=== PATIENT | female | born 1935 | race Caucasian/White ===

== ENCOUNTER 2017-07-04 11:45 | Outpatient (CLI) | payer MEDICARE, OTHER, SELFPAY ==
[2017-07-04] VITALS (11 sets, daily range): BP systolic 100–137; BP diastolic 22–78; PULSE 71–86; RESP 16–18; TEMP 36.2; O2SAT 93–97
--- NOTE | 2017-07-04 | DI.RAD.S_ITS ---
PROCEDURE: PAIN L/SI FACET INJ/BLK 1STL INDICATIONS: LUMBAR PAIN FINDINGS: Fluoroscopic spot filming was performed to verify placement of spinal needles at the left-sided L3-4, L4-5, and L5-S1 level(s), as labeled on the films. Appropriate location(s) of the needle tip(s) was confirmed by injection of iodinated contrast. IMPRESSION: Successful needle localization on the left at the left L3-4, L4-5, and L5-S1 facet regions. Dictated by: Anderson Pimentel M.D. on 07/04/2017 at 15:01 Approved by: Anderson Pimentel M.D. on 07/04/2017 at 15:03
--- NOTE | 2017-07-04 13:19 | PM.PROC.1 ---
Procedures Date/Time Date of procedure: 07/04/17 Time of procedure: 14:32 General Procedure description: PREOP DIAGNOSIS 1. FACET ARTHROPATHY, POST OP DIAGNOSIS 1. FACET ARTHROPATHY, PROCEDURES 1. Left L4, L5 and S1 MB BLOCKS, SURGEON: DO KRUPA Miller Nathaly is referred by Dr. Perez for treatment of Bilateral Axial LBP. DESCRIPTION OF PROCEDURE Fluoroscopically guided, contrast-controlled left L4,L5 and S1 medial branch blocks w ith 0.5cc of 0.5% Marcaine. Following denial of allergy and review of potential side effects and complications, including, but not necessarily limited to, infection, allergic reaction, local tissue breakdown, nerve injury, paralysis, stroke and possible , the patient indicated that the patient understood and agreed to proceed. An informed consent document was signed by the patient, witnessed by a nurse, and placed in the patient's chart. Per the patient request, IV conscious sedation was administered via 3mg of Versed to patient comfort. The patient's vital signs were monitored throughout the procedure by both the nurse and the physician without significant fluctuation. The patient remained conversant throughout the procedure. In the prone position, following sterile prep and drape of the lumbar region, the left L4,L5 and S1 anatomical location of the medial branch of the dorsal ramus was identified fluoroscopically. Subsequently an anesthetic skin wheal using 1% lidocaine solution was initiated at each of the anatomical spots. Subsequently then a 22-gauge 3.5-inch spinal needle was atraumatically introduced and advanced under fluoroscopic guidance at each of the corresponding sites at the left L4,L5 and S1 MB. After negative aspiration, 0.2 cc of Isovue 200 was injected, confirming placement without vascular or intrathecal uptake. Subsequently then 0.5 cc of 0.5% Marcaine solution was injected at each of the corresponding sites at the left L4,L5 and S1 medial branch locations. The identical procedure was replicated on the left. The patient tolerated the procedure well without signs or symptoms of complications. Post-procedure, the patient was monitored initiating provocative activities to measure the amount of relief from block of the facetogenic pain. The patient reported a VAS of 7 prior to the procedure and a post-procedure VAS of 1. It has been a pleasure to assist in the diagnostic and therapeutic care of your patient. Total Fluoroscopy Time:24.8 seconds Total Conscious Sedation Time: 24min POST OP INSTRUCTIONS The patient was provided with a Pain Log to complete over the next several hours and subsequent days prior to the patient's follow up with the ordering physician. If the patient has wired sweatband cutter relief to the solution applied, then they may be a candidate for medial branch rhizotomy. The patient is aware, was provided, once again, with a Pain Log and will follow up with the referring physician for review and clinical correlation Trip Frederick DO
[2017-07-04] MEDS: MIDAZOLAM 2 MG/2 ML VIAL 3 MG IV (13:24)
[2017-07-04] MEDS: BUPIVACAINE 0.25% (PF) 30 ML VIAL 5 ML INJ (13:32)
[2017-07-04] MEDS: LIDOCAINE 1% 20 ML INJ 10 ML INJ (13:32)
[2017-07-04] MEDS: BETAMETHASONE 30 MG/5 ML MDV 18 MG INJ (13:32)
== END 2017-07-04 14:24 ==
PROVIDERS: Family Provider Physical Medicine & Rehabilitation Pain Medicine; PCP Internal Medicine; Visit Provider Physical Medicine & Rehabilitation
DX: M47.816 Spondylosis without myelopathy or radiculopathy, lumbar region (principal); M54.42 Lumbago with sciatica, left side; M54.41 Lumbago with sciatica, right side; G89.29 Other chronic pain
CPT/HCPCS: 64493; 99152; J0702; J2250

== ENCOUNTER 2017-08-22 07:59 | Outpatient (CLI) | payer MEDICARE, OTHER, SELFPAY ==
--- NOTE | 2017-08-21 11:24 | PM.PROC.1 ---
Procedures Date/Time Date of procedure: 08/21/17 Time of procedure: 11:25
[2017-08-21 12:06] VITALS: BP 110/61; PULSE 74; RESP 18; TEMP 36.4; O2SAT 96
--- NOTE | 2017-08-21 12:32 | PC.NURSE ---
Procedure has been canceled rt improper grounding pad being present for ablation machine. The facility currently does not have the correct grounding pad so Dr. Frederick is unable to safely conduct the procedure. Explanation given to pt and and both verbalized understanding of problem.
[2017-08-22] VITALS (21 sets, daily range): BP systolic 101–139; BP diastolic 49–85; PULSE 79–93; RESP 18; TEMP 36.3; O2SAT 93–100
--- NOTE | 2017-08-22 | DI.RAD.S_ITS ---
PROCEDURE: PAIN L/S MED/LAT N RFA INDICATIONS: BACK PAIN FINDINGS: Fluoroscopic spot filming was performed to verify placement of spinal needles at the L4, L5, S1 level(s), as labeled on the films. Appropriate location(s) of the needle tip(s) was confirmed by injection of iodinated contrast. IMPRESSION: Left-sided L4, L5, S1 successful needle tip localization for nerve root ablation. Dictated by: Anderson Pimentel M.D. on 08/22/2017 at 15:09 Approved by: Anderson Pimentel M.D. on 08/22/2017 at 15:09
[2017-08-22] MEDS: MIDAZOLAM 5 MG/5 ML VIAL IV (12:30)
[2017-08-22] MEDS: LIDOCAINE 1% 20 ML INJ 10 ML INJ (13:15)
[2017-08-22] MEDS: BUPIVACAINE 0.5% (PF) 30 ML VIAL 5 ML INJ (13:15)
--- NOTE | 2017-08-22 13:45 | P.PCN_ITS ---
Procedures Date/Time Date of procedure: 08/22/17 Time of procedure: 13:45 General Procedure description: PREOP DIAGNOSIS 1. RECALCITRANT FACET ARTHROPATHY, POST OP DIAGNOSIS 1. RECALCITRANT FACET ARTHROPATHY, PROCEDURES 1. LEFTT L4 AND L5 MEDIAL BRANCH RADIOFREQUENCY NEUROTOMY AND LEFT S1 DORSAL RAMUS RADIOFREQUENCY NEUROTOMY, PHYSICIAN: Trip Frederick DO INDICATIONS Nathaly is referred by Dr. Mcdonald for treatment of facet arthropathy. DESCRIPTION OF PROCEDURE Left L4 and L5 medial branch radiofrequency neurotomy and left S1 dorsal ramus branch radiofrequency neurotomy under fluoroscopy with conscious sedation. The patient is well known to this clinic having undergone previous facet injections with good but temporary relief. The patient has experienced appropriate, concordant relief with previous facet and median branch blocks but the patient's pain has been recalcitrant to further conservative measures. Therefore, based upon the patient's relief and persistent symptoms, the patient is considered an appropriate candidate for facet rhizotomy. All of the patient' s questions regarding the risks versus benefits of the procedure, including, but not limited to, bleeding, infection, temporary as well as lasting nerve injury, paralysis, stroke, and , as well treatment alternatives were answered to satisfaction. After obtaining informed consent, denial of pertinent drug allergies, as well as being made aware of the potential risks of bleeding, infection, spinal cord trauma, paralysis, temporary and permanent nerve damage, seizure, stroke, and possible , the patient was brought to the fluoroscopy suite and positioned prone on the fluoroscopy table. The lumbar region was prepped with Betadine and covered with a fenestrated drape in the usual sterile fashion. Appropriate monitors applied including pulse oximeter, pulse, and blood pressure for regular monitoring throughout the procedure. IV sedation was accomplished with a combination of 5mg of Versed titrated to patient comfort during the course of the procedure while the patient remained responsive to all verbal commands. After local infiltration using 1% lidocaine, under fluoroscopic guidance, a 10- cm RF insulated needle with a 10-mm active tip was positioned parallel to the junction of the left sacral ala and the superior articulating process where the S1 dorsal ramus resides. Needle placement was confirmed with sensory stimulation at 50 Hz, with motor stimulation of .5v on the left which produced local stimulation without radicular component. The stimulation was then increased to 1.5v with, once again, only local multifidus stimulation without radicular component. This was then followed by two discreet lesions performed at 80 degrees Celsius for 90 seconds each. The needle was then removed and the identical procedure was performed along the length of the left L5 medial branch with motor stimulation at .7v on the leftt. The identical procedure was once again performed along the length of the left L4 medial branch with motor stimulation of .5v on the left. The patient was then transferred to the recovery area where they were observed for an appropriate period of time after the injection. The patient reported a VAS score of 9 prior to the procedure and a post-procedure VAS of 0. Total Fluoroscopy Time: 22.7 seconds Total Conscious Sedation Time: 34min POST OP INSTRUCTIONS The patient was provided a Pain Log to continue to record the patient's response to the target-specific procedure prior to the patient's follow-up visit with the referring physician. Additionally, specific post-injection care instructions and a contact number to our office were provided if concerns arise regarding possible complications associated with the procedure are suspected. Trip Frederick DO Complications: none
--- NOTE | 2017-08-22 13:51 | PC.NURSE ---
pt desated to lows\es noted 84% on RA with good pleth upon arrival to post procedure room. O2 by NC started and came up to 94% on 5L. now at 100% on 3L
--- NOTE | 2017-08-22 14:47 | PC.NURSE ---
Ambulation trial failed, pt unable to stand at this time.
--- NOTE | 2017-08-22 15:15 | PC.NURSE ---
AMBULATION ATTEMPTED FOR 2ND TIME, PT ABLE TO STAND AT THIS TIME BUT UNABLE TO SHOW STEADY GAIT. PT SAT BACK DOWN SAFELY IN CHAIR.
--- NOTE | 2017-08-22 15:27 | PC.NURSE ---
PT ABLE TO AMBULATE SAFELY WITH WALKER, WHICH IS PT'S BASELINE.
== END 2017-08-22 15:45 | disposition home or self-care (01) ==
LOC: RAD 08:01
PROVIDERS: Family Provider Physical Medicine & Rehabilitation Pain Medicine; PCP Internal Medicine; Visit Provider Physical Medicine & Rehabilitation
DX: M47.816 Spondylosis without myelopathy or radiculopathy, lumbar region (principal); M46.96 Unspecified inflammatory spondylopathy, lumbar region
CPT/HCPCS: 64635; 64636; 99152; J2250

== ENCOUNTER → 2017-09-21 08:53 | Outpatient (CLI) | payer MEDICARE, OTHER, SELFPAY ==
--- NOTE | 2017-09-21 | DI.RAD.S_ITS ---
PROCEDURE: XR ACUTE ABDOMEN SERIES INDICATIONS: ABDOMINAL PAIN TECHNIQUE: One view chest and two views of the abdomen were acquired. COMPARISON: [facility], , CHEST 2 VIEW, 02/03/2017, 13:54. [facility], , ABDOMEN 2 VIEW, 03/15/2016, 18:54. FINDINGS: Surgical changes and devices: Surgical fusion lower cervical spine. Multilevel vertebral plasty and surgical fusion lumbar spine. Chest: Lungs show accentuated interstitial pattern with indistinct radiodensity in the right midlung field laterally and over the left heart border, indeterminate. Possible small right pleural effusion. Heart size is mildly enlarged. No pleural effusions. No pneumoperitoneum. Abdomen: Bowel gas pattern is unremarkable without evidence of obstruction. No suspicious calcifications. Visualized solid organ contours appear normal. Bones: Rounded sclerotic density in the right humeral head laterally.. IMPRESSION: 1. Pulmonary interstitial prominence which may represents chronic interstitial lung disease or chronic pulmonary edema with patchy densities bilaterally that could represent superimposed or underlying pneumonia. 2. Exam is negative for small bowel obstruction or pneumoperitoneum. 3. Postoperative changes cervical and lumbar spine per above. Dictated by: Vazquez Mascorro M.D. on 09/21/2017 at 9:42 Approved by: Vazquez Mascorro M.D. on 09/21/2017 at 9:48
--- NOTE | 2017-09-21 | DI.US.S_ITS ---
PROCEDURE: US ABDOMEN COMPLETE INDICATIONS: ABDOMINAL PAIN TECHNIQUE: Real-time scanning was performed of the abdominal and retroperitoneal organs, with image documentation. COMPARISON: [facility], CT, ABDOMEN/PELVIS WITH CONTRAST, 12/27/2015, 3:19. [facility], CR, XR ACUTE ABDOMEN SERIES, 09/21/2017, 9:00. FINDINGS: Liver: Liver is normal in size and homogeneous in echotexture. Gallbladder: No findings of gallstones or sludge are seen. The gallbladder wall is not thickened, measuring 3 mm or less. No specific pericholecystic fluid is seen. The sonographic Saeed sign is negative. Biliary ducts: Intrahepatic bile ducts are non-dilated. Extrahepatic bile duct caliber measures 5-6 mm. Normal is 6-7 mm or less in diameter, or 10 mm or less post-cholecystectomy. Pancreas: Visualized portions of the pancreas are sonographically normal. Spleen: Spleen is normal in size and homogeneous in echotexture. Kidneys: Kidneys are normal in size and echotexture. Right kidney measures 10 cm long; left kidney measures 11 cm long. No hydronephrosis or nephrolithiasis. No solid masses. The renal cortex measures within normal limits for thickness. Aorta: Visualized aorta is normal in caliber at less than 3 cm. Iliacs: Proximal common iliac arteries are normal in caliber at less than 2.5 cm. IVC: Intrahepatic inferior vena cava is patent. Miscellaneous: No free abdominal fluid. IMPRESSION: No imaging explanation is found for this patient's presenting history of pain. The gallbladder demonstrates a normal sonographic appearance. No biliary dilatation is seen. Dictated by: Roman Salinas M.D. on 09/21/2017 at 10:00 Approved by: Roman Salinas M.D. on 09/21/2017 at 10:01
== END ==
PROVIDERS: Family Provider Physical Medicine & Rehabilitation Pain Medicine; PCP Internal Medicine; Visit Provider Internal Medicine
DX: R10.84 Generalized abdominal pain (principal)
CPT/HCPCS: 74022; 76700

== ENCOUNTER → 2017-10-05 09:45 | Outpatient (CLI) | payer MEDICARE, OTHER, SELFPAY | PROVIDERS: Family Provider Physical Medicine & Rehabilitation Pain Medicine; PCP Internal Medicine; Visit Provider Internal Medicine | DX: M85.852 Other specified disorders of bone density and structure, left thigh (principal); E06.3 Autoimmune thyroiditis; Z78.0 Asymptomatic menopausal state; Z90.722 Acquired absence of ovaries, bilateral; Z82.62 Family history of osteoporosis | CPT/HCPCS: 77080 ==

== ENCOUNTER → 2017-10-17 10:59 | Outpatient (CLI) | payer MEDICARE, OTHER, SELFPAY ==
--- NOTE | 2017-10-17 | DI.RAD.S_ITS ---
PROCEDURE: FL BARIUM SWALLOW W SPEECH INDICATIONS: DYSPHAGIA TECHNIQUE: Examination was conducted in conjunction with speech pathology per standard protocol. In the lateral projection, filming was performed of the patient swallowing. AP projection filming may also be performed with patient swallowing. COMPARISON: None. FINDINGS: Function: The oral preparatory phase appears normal, with proper containment. The subsequent oral propulsive phase, pharyngeal phase, and esophageal phase of swallowing also appear generally normal with proffered substances however there was identified mild laryngotracheal penetration and upper tracheal airway aspiration episodically with thin liquids. No pathologic vallecular pooling. Morphology: No cricopharyngeal bar is identified. No cervical esophageal webs. No Zenker's diverticulum. No strictures. IMPRESSION: Thin liquids didn't result in anterior penetration and a mild degree of upper tracheal airway aspiration during neutral position following. Flexed position swallowing with thin liquids did not result in this finding. Please also refer to the dedicated speech therapy swallowing evaluation report that will be independently generated. Dictated by: Anderson Pimentel M.D. on 10/17/2017 at 14:14 Approved by: Anderson Pimentel M.D. on 10/17/2017 at 14:17
--- NOTE | 2017-10-29 09:15 | ST.SWALLOW ---
Care Team Visit Care Team Role Provider Type Arturo Mcdonald MD Attending Provider Physician Primary Care Provider Specialty: Internal Medicine Address: [address] [place] [address], [id number] Email: Modified Barium Swallow Study DIRECTOR OF RECRUITMENT AND ADMISSIONS Modified Barium Swallow Study Start: 10/17/17 13:22 Freq: Status: Active Protocol: Document 10/17/17 13:22 LNK (Rec: 10/17/17 13:43 LNK [id number]) Modified Barium Swallow Study Total Time Visit Start Time 01:30 Visit Stop Time 12:15 Total Visit Minutes 45 Visit Information Insurance Information Medicare Setting Setting Outpatient Care Patient Information Identification Type Name Other Patient History Nathaly Dee was seen for a Modified Barium Swallow Study (MBSS) at the referral of her physician, Dr. Mcdonald. Nathaly had attended a dysphagia screening assessment at [facility] in September,. She indicated that she often has difficulty with her swallowing, frequently feeling like foods and liquids go down the wrong way. The DIRECTOR OF RECRUITMENT AND ADMISSIONS at that screening recommended that Nathaly be referred for the MBSS. When Nathaly was seen for the MBSS she further described that often she will have foods and liquids back up and go into her mouth after she has swallowed. She chokes frequently and has difficulty with chewing. She has a hx of hiatal hernia (~15 years ago) without therapy or treatment that she could remember. Subjective Observations Pleasant lady, seemed a little anxious. Patient Positioning Position View Lateral Imaging Lateral View Textures Administered Trials Presented Thin Liquid via Spoon Thin Liquid via Cup [place] Liquid via Spoon [place] Liquid via Cup Regular Textures Oral Phase Source: MBSIMP (TM) (C) Bolus Specific Scoring Grid Lip Closure WFL Tongue Control During Bolus Hold WFL Bolus Prep/Mastication Moderate Impairment Bolus Transport/Lingual Motion Moderate Impairment A/P Lingual Propulsion Delay No Oral Residue Moderate Impairment Residue Clearing Mild Impairment Nasal Regurgitation No Additional Oral Phase Observations for all liquid trials, the pt presented with oral motor skills WFL. However with the solid trial, she demonstrated moderate difficulty with tongue control for formation and control of the bolus. (1/ 2 [place] cookie). The pt required 3 attempts to swallow the cookie before it was cleared from her oral cavity. The cookie was not chewed adequately with large pieces of the cookie observed in subsequent swallows. Premature spillage was also observed prior to the initiation of the pharyngeal phase of the swallow. Pharyngeal Phase Source: MBSIMP (TM) (C) Bolus Specific Scoring Grid Delayed Initiation of Pharyngeal Swallow Yes Soft Palate Elevation WFL Tongue Base Strength/Range of Motion Moderate Impairment Residue Along the Tongue Base Yes Clearance of Residue Along Tongue Base Mild Impairment Laryngeal Elevation Moderate Impairment Anterior Hyoid Movement Moderate Impairment Epiglottic Range of Motion Moderate Impairment Vallecular Residue Yes Clearance of Vallecular Residue Moderate Impairment Laryngeal Vestibular Closure Moderate Impairment Pharyngeal Stripping Wave Mild Impairment Pharyngeal Contraction Mild Impairment Posterior Pharyngeal Wall Residue Yes Clearance of Posterior Pharyngeal Wall Moderate Impairment Residue Upper Esophageal Sphincter Opening Mild Impairment Residue in the Pyriform Sinuses Yes Clearance of Residue in the Pyriform Mild Impairment Sinuses Esophageal Clearance Upright Position Mild Impairment Pharyngoesophageal Backflow Observed No: pt reports backflow occurs often Additional Pharyngeal Phase Observations The swallowing response appeared to be delayed with partial hyolaryngeal elevation as well as partial excursion of the hyoid bone. The epiglottis did not invert completely and therefore resulted in incomplete closure of the laryngeal vestibule. The posterior pharyngeal wall near the epiglottis appeared to restrict the full inversion of the epiglottis. For all thin liquid trials, there was laryngotracheal penetration as well as aspiration with increased volume (as in a cup sip compared to a teaspoonful) . Chin tuck was effective with airway protection for liquids. Supraglottic swallowing was not effective for the pt with penetration observed. Following the aspiration event , the pt responded with a cough and was able to clear pharyngeal pooling; however there remained a trace residue within the upper trachea. Within the pharynx pooling was observed in the vallecula ( cookie as well as liquids), the pyriform sinuses, along the tongue base, as well as the pharyngeal wall. Pharyngeal stripping was evident, but inconsistent across trials. A/P View Clinical Impressions Dysphagia Type oropharyngeal dysphagia Rehabilitation Potential Excellent Patient Appropriate for Therapy Yes Recommendations Diet Liquids Order Thin Diet Order Mechanical Soft Medication Recommendation As Tolerated Additional Dietary Needs Single Sips Aspiration Precautions Recommended Precautions Upright at 90 Degrees Alternate Liquids/Solids Small Bites/Sips Chin Tuck Additional Precautions one sip at a time with liquids and tuck chin for all swallows Treatment Plan Therapy Recommendations Outpatient Speech Therapy Oral Motor Exercises Lingual Exercises Base of Tongue Exercises Compensatory Strategy Education Additional Therapy Recommendations Out patient dysphagia therapy Recommended Referrals Primary Care Physician GI Consult ENT Consult Additional Recommended Referrals GI consult re: hx of hiatal hernia and regurgitation of solids/liquids Compensatory Strategies Recommendations Sitting Upright (90 deg) No Straw Small Bites and Sips Alternate Liquids/Solids Short Term Goals The pt will learn and utilize linguapharyngeal exercises to reduce risk of aspiration. The pt will implement safe swallowing strategies to reduce the risk of aspiration Mcfp Goals The pt will safely tolerate the least restrictive diet without s/sx aspiration to meet nutritional and hydration needs.
== END ==
PROVIDERS: PCP Internal Medicine; Visit Provider Internal Medicine
DX: R13.10 Dysphagia, unspecified (principal)
CPT/HCPCS: 74220; 74230; 92611

== ENCOUNTER 2017-10-29 14:09 | Outpatient (RCR) | payer MEDICARE, OTHER, SELFPAY ==
--- NOTE | 2017-10-30 12:18 | ST.OPIE ---
Provider Information Visit Care Team Role Provider Type Arturo Mcdonald MD Attending Provider Physician Primary Care Provider Specialty: Internal Medicine Address: [address] [place] [address], [id number] Email: Speech-Language Pathology Initial Evaluation COUNTER SERVER Clinical Swallow Evaluation Start: 10/30/17 11:07 Freq: Status: Active Protocol: Document 10/29/17 11:07 KANA (Rec: 10/30/17 11:32 KANA [email or web address]) Clinical Swallow Evaluation Session Time Visit Start Time 14:30 Visit Stop Time 15:30 Total Visit Minutes 60 Visit Information Visit Number Initial Evaluation Plan of Care Dates 10/29/17 - 01/21/18 Insurance Information Medicare Referral Referring Physician Dr. Mcdonald Reason for Referral Dysphagia Setting Assessment Location Outpatient Care Visit Type Note Type Initial Evaluation Next Note Type Next Note Type Treatment Note Patient Information Identification Type Name History This 81-yr-old female attended swallow screening provided by [facility] last month with c/o difficulty with oral bolus control, coughing with oral intake, and sticking sensation in throat. At that time a Modified Barium Swallow Study (MBSS) was recommended, which did occur 10/17/17. At that time, the pt further reported that foods and liquids often 'back up and go into her mouth' after she has swallowed. She chokes frequently and has difficulty chewing. MBSS confirmed moderate oropharyngeal dysphagia characterized by reduced mastication and bolus formation and control; delayed swallow trigger; penetration and aspiration of thin liquid secondary to partial hyolaryngeal elevation and excursion, incomplete epiglottic inversion ( restricted by contact with pharyngeal wall) resulting in incomplete closure of the laryngeal vestibule. Chin tuck was beneficial to protect airway; supraglottic swallow was not. Recommendations included thin liquid in tsp amounts only taken in single sips, mechanical soft texture chewed well, chin tuck with swallows. Per pt, thin liquids and soft foods are her baseline diet. Subjective Observations The pt arrived on time with her , who was present throughout the evaluation and contributed to case hx. The pt reported following recommendations made by the COUNTER SERVER who performed the MBSS. The pt also reported familiarity with thickened liquids from caring for her parents who required them. Evaluation Liquids Trialed Thin Greenleaf Solids Trialed Puree Dysphagia Mechanical Dysphagia Advanced Administration Type Cup Single Sip Self-Feeding Oral Impairment Moderately Impaired Oral Strategies Upright at 90 degrees Oral Phase Comments No anterior spillage or abnormal oral residue observed . Moderately extended mastication was observed and deemed appropriate for adequate bolus breakdown. The pt noted diced peaches feeling stuck in her throat and remarked that she had not chewed well enough. She also reported some difficulty moving solids around her mouth in order to swallow well. Pharyngeal Strategies Sitting Upright (90 deg) Chin Tuck Small Bites and Sips Pharyngeal Phase Comments Mild throat clearing following swallows was observed with most trials, improved with chin tuck with exception of 1 trial . Reduced throat clearing observed with NTLs. Pt reported sticking sensation x3 and stated she felt close to coughing x1 but was able to avoid by taking a sip of liquid. No changes in vocal quality observed or other overt s/sx of aspiration. Pt demonstrated good use of swallow strategies with minimal cues. Findings Dysphagia Type Moderate oropharyngeal. Rehabilitation Potential Good Impressions Findings are consistent with MBSS results. Diet Recommendations Liquids Order Greenleaf Diet Order Dysphagia Mechanical Medication Recommendations Whole in Carrier Additional Dietary Needs Single Sips Aspiration Precautions Recommended Precautions Upright at 90 Degrees Small Bites/Sips Chin Tuck Liquids from Cup Additional Precautions Chew all solids well Treatment Plan Appropriate for Therapy Yes Therapy Recommendations Ongoing education and assessment of swallow function /safety. Training of swallow exercises to increase hyolaryngeal elevation and excursion in order to increase closure of laryngeal vestibule and promote epiglottic inversion; improve lingual control of bolus in oral cavity; and increase overall strength, coordination , and ROM of swallow musculature. Dysphagia Goals 1. Pt will complete exercises to improve swallow function and reduce risk of aspiration. 2. Pt will use safe swallow strategies independently to reduce risk of aspiration. 3. Pt will tolerate least restrictive diet to meet nutrition and hydration needs.
== END 2018-06-20 18:08 ==
LOC: SP 14:09
PROVIDERS: PCP Internal Medicine; Visit Provider Internal Medicine
DX: R13.10 Dysphagia, unspecified (principal)
CPT/HCPCS: 92526; 92610

== ENCOUNTER → 2017-11-02 12:24 | Outpatient (CLI) | payer MEDICARE, OTHER, SELFPAY ==
--- NOTE | 2017-11-02 | DI.MG.S_ITS ---
BILATERAL DIGITAL SCREENING MAMMOGRAM 3D/2D WITH CAD: 11/02/2017 CLINICAL: Routine screening. Comparison is made to exams dated: 09/25/2012 mammogram, 09/13/2011 mammogram, and 09/06/2010 mammogram - [facility]. The tissue of both breasts is predominantly fatty. Current study was also evaluated with a Computer Aided Detection (CAD) system. There are benign calcifications in both breasts. No significant masses, calcifications, or other findings are seen in either breast. There has been no significant interval change. IMPRESSION: BENIGN There is no mammographic evidence of malignancy. A 1 year screening mammogram is recommended. This exam was interpreted at Station ID: [id number]. NOTE: For mammograms, a report in lay terms will be sent to the patient. Approximately 15% of breast malignancies will not be visualized mammographically. In the management of a palpable breast mass, a negative mammogram must not discourage biopsy of a clinically suspicious lesion. Electronically Signed By: Maria G houser/eileen:11/02/2017 14:00:01 letter sent: Normal Exam ACR BI-RADS Category 2: Benign Finding(s) 3342F
== END ==
PROVIDERS: PCP Internal Medicine; Visit Provider Internal Medicine
DX: Z12.31 Encounter for screening mammogram for malignant neoplasm of breast (principal)
CPT/HCPCS: 77063; 77067

== ENCOUNTER 2017-12-02 05:14 | Emergency (ER) | payer MEDICARE, OTHER, SELFPAY ==
[2017-12-02 05:22] VITALS: BP 130/74; PULSE 94; RESP 21; TEMP 36.9; O2SAT 92; BMI 29.5
--- NOTE | 2017-12-02 05:25 | DI.RAD.S_ITS ---
PROCEDURE: XR CHEST 1V INDICATIONS: leg pain, chest pain TECHNIQUE: One view of the chest was acquired. COMPARISON: [facility], , CHEST 2 VIEW, 02/03/2017, 13:54. FINDINGS: Surgical changes and devices: Fixation hardware is partially visualized and is grossly intact. Lungs and pleura: There is mild elevation of the right hemidiaphragm, as before. Diffuse reticular opacities throughout both lungs are unchanged from prior study suggesting fibrotic changes. Trace pulmonary opacities or atelectasis are present in the right midlung. Mediastinum: Mediastinal contours appear normal. Heart size is normal. Bones and chest wall: No suspicious bony lesions. Overlying soft tissues appear unremarkable. IMPRESSION: Findings suspicious for right midlung atelectasis although trace pulmonary infiltrate cannot be excluded. Short interval followup is recommended to ensure resolution of this finding and exclude underlying pulmonary pathology. Dictated by: Maria G Downey M.D. on 12/02/2017 at 8:37 Approved by: Maria G Downey M.D. on 12/02/2017 at 8:38
--- NOTE | 2017-12-02 05:42 | DI.US.S_ITS ---
PROCEDURE: US PERIPH VENOUS LOW EXTREM LT INDICATIONS: pain behind knee, low oxygen TECHNIQUE: Real-time imaging, as well as color and pulse Doppler interrogation, were performed of the lower extremity deep veins from the inguinal ligament to the popliteal fossa. COMPARISON: None. FINDINGS: The deep veins are normally compressible, and free of intraluminal thrombus. Color and pulse Doppler demonstrate normal phasic intraluminal flow. There is normal augmentation response to distal compression maneuver. IMPRESSION: No deep vein thrombosis of the left lower extremity. Dictated by: Maria G Downey M.D. on 12/02/2017 at 8:45 Approved by: Maria G Downey M.D. on 12/02/2017 at 8:45
[2017-12-02 05:46] LABS: Add Manual Diff / Slide Review NO; Basophils Percent Auto 0.9 % (0-2); Eosinophils Percent Auto 1.2 % (2-4); Hematocrit 39.8 % (36-46); Hemoglobin 13.1 g/dL (12.0-16.0); Lymphocytes Percent Auto 10.4 % (25-40); Mean Corpuscular Hemoglobin 28.2 PG (26-34); Mean Corpuscular Volume 85.4 fL (80-100); Monocytes Percent Auto 7.3 % (3-14); Neutrophils Absolute Auto 13500 /uL (3000-5900); Neutrophils Percent Auto 80.2 % (50-75); Platelet Count 127 X10^3/uL (150-400); Red Blood Cell Count 4.66 X10^6/uL (4.0-5.2); Red Cell Distribution Width 17.1 % (11.6-14.8); White Blood Cell Count 16.8 X10^3/uL (4.5-11.0)
[2017-12-02 05:51] LABS: INR 3.6 (0.9-1.3)
--- NOTE | 2017-12-02 05:51 | ED.GENADULT ---
HPI - General Adult <Kathy Blanco, - Last Filed: 12/02/17 19:12> General Chief complaint: Chest Pain Stated complaint: Posterior Left Knee pain Time Seen by Provider: 12/02/17 05:36 Source: patient and family Mode of arrival: EMS Limitations: no limitations History of Present Illness HPI narrative: This is an 82-year-old female comes to the emergency department with complaint of left knee pain. Patient states that it started hurting this evening. She states she has not had any trauma, he shows any twisting or other injuries that she remembers. She states it hurts behind the knee. She denies any swelling, no weakness or numbness or tingling. Patient does feel little bit short of breath this evening. Her oxygen was low initially with EMS and here in the ED. She denies any chest pain to me but states to patient's nurse that she had chest pain at some point. Patient denies any nausea or vomiting, no GI or urinary symptoms. No new neck pain or radiating pain to the arm or elsewhere. Patient has a history of atrial fibrillation and she is on Coumadin. She has not had any prior DVTs or blood clots. She is in chronic atrial fibrillation. Related Data Home Medications Medication Instructions Recorded Confirmed cholecalciferol (vitamin D3) 2,000 unit PO QDAY #0 07/11/11 11/15/17 [Vitamin D3] duloxetine 60 mg PO QDAY #0 03/13/16 11/15/17 ondansetron HCl 4 mg PO TIDP PRN #0 03/13/16 11/15/17 oxycodone 1 - 2 tab PO Q4HP PRN #0 03/13/16 11/15/17 sennosides [senna] 1 tab PO QDAYP PRN #0 03/13/16 11/15/17 acetaminophen 650 mg PO PRN PRN #0 11/02/16 11/15/17 cetirizine 10 mg PO QDAY #0 11/02/16 09/07/17 cyanocobalamin (vitamin B-12) 1,000 mcg PO QPM #0 11/02/16 11/15/17 magnesium oxide 250 mg PO QPM #0 11/02/16 09/07/17 pseudoephedrine-guaifenesin 1 tab PO QDAY #0 11/02/16 09/07/17 [Mucinex D] fentanyl 1 patch TOPICAL Q72H #0 12/26/16 11/15/17 latanoprost 1 drp OPHTH HS #0 02/03/17 09/07/17 warfarin 5 mg tablet 5 mg PO QMWF 11/15/17 11/15/17 Previous Rx's Medication Instructions Recorded Diltiazem Hydrochloride 360 mg PO Q DAY #90 01/29/12 (#DILTIAZEM) polyethylene glycol 3350 [Miralax] 17 gm PO QDAYP PRN #1 box 12/23/15 metoprolol succinate 100 mg PO QDAY #30 tab 12/01/16 furosemide 40 mg PO QDAY #30 tab 01/05/17 pantoprazole 40 mg PO 0600 #30 tab 01/05/17 clobetasol 0.05 % topical ointment 1 applictn TOPICAL SEE 09/24/17 INSTRUCTIONS #60 gram Allergies Allergy/AdvReac Type Severity Reaction Status Date / Time Penicillins [PENICILLINS] Allergy Severe RASH/SWELLI Verified 09/07/17 10:08 NG sulfite [SULFITE] Allergy Severe GI UPSET Verified 09/07/17 10:08 gabapentin [GABAPENTIN] AdvReac Unknown LOW BP, Verified 09/07/17 10:08 CONFUSION pregabalin [From LYRICA] AdvReac Unknown LOW BP, Verified 09/07/17 10:08 CONFUSION Review of Systems <Kathy Blanco, DO - Last Filed: 12/02/17 19:12> Review of Systems All systems reviewed & are unremarkable except as noted in HPI and below Constitutional Denies chills, Denies fever(s), Denies lethargy and Denies weakness ENT Ears, Nose, Mouth, and Throat: Denies nasal congestion Cardiovascular Denies chest pain, Denies diaphoresis, Denies syncope, Denies rapid heart rate, Denies edema, Denies lightheadedness, Denies dyspnea and Denies dyspnea on exertion Respiratory Denies chest congestion, Denies cough, Denies excessive phlegm production, Denies dyspnea, Denies dyspnea on exertion and Denies wheezing Gastrointestinal Gastrointestinal: Denies abdominal pain, Denies change in bowel habits, Denies diarrhea, Denies nausea and Denies vomiting Genitourinary Denies urinary incontinence and Denies urinary urgency Musculoskeletal Reports as per HPI (left knee pain behind knee), Denies joint swelling, Reports limited range of motion, Denies muscle weakness and Denies tingling Integumentary/Breasts Denies erythema and Denies rash Neurologic Denies syncope, Denies sensory deficit, Denies tingling and Denies weakness Allergic/Immunologic Denies wheezing Exam <Kathy Blanco DO - Last Filed: 12/02/17 19:12> Narrative Exam Narrative: GENERAL: Alert and oriented x three, obese, well-appearing female in no acute distress but HEENT: Head normocephalic, atraumatic, EOMI, pupils reactive, face symmetric, moist mucous membranes NECK: Supple, full range of motion CARDIOVASCULAR: Regular rate and rhythm without murmurs, rubs or gallops. RESPIRATORY: Breath sounds equal bilaterally, no wheezes rales or rhonchi. ABDOMEN: Soft, nontender. Normoactive bowel sounds all 4 quadrants. No guarding or rebound, rigidity, no mass : No CVA tenderness EXTREMITIES: Decreased range of motion of left knee patient refuses to flex extend secondary to pain, patient has tenderness behind the knee but no bony tenderness. No appreciable swelling in left compared to right knee or lower extremity. Patient has no warmth or erythema to the knee. No ballotable effusion. 2+ pulses bilateral lower extremities. No cyanosis or pallor., no clubbing or edema. Neurovascularly intact NEUROLOGICAL: Cranial nerves II through XII grossly intact. Moving all extremities SKIN: Warm, dry, no petechiae, no rashes or lesions. Initial Vital Signs Initial Vital Signs: Vital Signs Temperature 98.4 F 12/02/17 05:22 Pulse Rate 94 H 12/02/17 05:22 Respiratory Rate 21 12/02/17 05:22 Blood Pressure 130/74 12/02/17 05:22 Pulse Oximetry 92 12/02/17 05:22 <Adryan Howell DO - Last Filed: 12/02/17 09:26> Initial Vital Signs Initial Vital Signs: Vital Signs Temperature 98.4 F 12/02/17 05:22 Pulse Rate 94 H 12/02/17 05:22 Respiratory Rate 21 12/02/17 05:22 Blood Pressure 130/74 12/02/17 05:22 Pulse Oximetry 92 12/02/17 05:22 Course <Kathy Blanco DO - Last Filed: 12/02/17 19:12> Orders Ordered: Discontinued Medications Aspirin (Aspirin Chew) 324 mg PO NOW ONE Stop: 12/02/17 05:26 Last Admin: 12/02/17 05:59 Dose: 324 mg Hydromorphone HCl (Dilaudid) 1 mg IV NOW ONE Stop: 12/02/17 07:25 Last Admin: 12/02/17 08:45 Dose: 1 mg Sodium Chloride (Normal Saline 0.9%) 1,000 mls @ 150 mls/hr IV CONT [facility] Last Infusion: 12/02/17 09:30 Dose: 0 mls/hr Admin: 12/02/17 05:59 Dose: 150 mls/hr Vital Signs - 8 hr 12/02/17 05:22 12/02/17 06:00 12/02/17 08:44 Temperature 98.4 F Pulse Rate 94 H 90 79 Respiratory Rate 21 28 H 19 Blood Pressure 130/74 Blood Pressure [Right Arm] 109/58 L 105/55 L Pulse Oximetry 92 96 92 <Adryan Howell DO - Last Filed: 12/02/17 09:26> Orders Ordered: Discontinued Medications Aspirin (Aspirin Chew) 324 mg PO NOW ONE Stop: 12/02/17 05:26 Last Admin: 12/02/17 05:59 Dose: 324 mg Hydromorphone HCl (Dilaudid) 1 mg IV NOW ONE Stop: 12/02/17 07:25 Last Admin: 12/02/17 08:45 Dose: 1 mg Sodium Chloride (Normal Saline 0.9%) 1,000 mls @ 150 mls/hr IV CONT [facility] Last Infusion: 12/02/17 09:30 Dose: 0 mls/hr Admin: 12/02/17 05:59 Dose: 150 mls/hr Vital Signs - 8 hr 12/02/17 05:22 12/02/17 06:00 12/02/17 08:44 Temperature 98.4 F Pulse Rate 94 H 90 79 Respiratory Rate 21 28 H 19 Blood Pressure 130/74 Blood Pressure [Right Arm] 109/58 L 105/55 L Pulse Oximetry 92 96 92 Medical Decision Making <Kathy Blanco DO Romulo Last Filed: 12/02/17 19:12> Lab Data Lab results reviewed: Yes I reviewed the patient's lab results. Result diagrams: 12/02/17 05:37 12/02/17 05:37 Lab Results 12/02/17 12/02/17 12/02/17 Range/Units 05:37 05:37 05:37 WBC 16.8 H (4.5-11.0) X10^3/uL RBC 4.66 (4.0-5.2) X10^6/uL Hgb 13.1 (12.0-16.0) g/dL Hct 39.8 (36-46) % MCV 85.4 (80-100) fL MCH 28.2 (26-34) PG MCHC 33.0 (30-36) % RDW 17.1 H (11.6-14.8) % Plt Count 127 L (150-400) X10^3/uL Neut % (Auto) 80.2 H (50-75) % Lymph % (Auto) 10.4 L (25-40) % Lagrange % (Auto) 7.3 (3-14) % Eos % (Auto) 1.2 L (2-4) % Baso % (Auto) 0.9 (0-2) % Neut # (Auto) 05015 H (8154-2910) /uL PT 40.0 H (10.1-12.7) SECONDS INR 3.6 H (0.9-1.3) APTT 53 H (26.4-36.2) SECONDS Sodium 139 (137-145) mmol/L Potassium 4.2 (3.4-5.1) mmol/L Chloride 101 (98-107) mmol/L Carbon Dioxide 29 (22-32) mmol/L BUN 15 (7-17) mg/dL Creatinine 0.70 (0.52-1.04) mg/dL Estimated GFR > 60.0 (>60) mL/min BUN/Creatinine Ratio 21.4 (6-22) Glucose 143 H (80-110) mg/dL Calcium 8.7 (8.4-10.2) mg/dL Total Bilirubin 1.1 (0.2-1.3) mg/dL AST 23 (14-36) IU/L ALT 19 (9-52) IU/L Alkaline Phosphatase 114 (38-126) U/L Total Creatine Kinase 22 L (30-135) U/L CK-MB (CK-2) TNP CK-MB (CK-2) Rel Index TNP Troponin I < 0.012 (0.01-0.034) ng/mL B-Natriuretic Peptide 586.0 H (<100) Total Protein 7.7 (6.3-8.2) g/dL Albumin 4.0 (3.5-5.0) g/dL Globulin 3.7 (1.7-4.1) g/dL Albumin/Globulin Ratio 1.1 (1.0-2.8) Lipase 17 L (23-300) U/L Imaging Data DVT US LLE: Radiologist's impression: No evidence of left lower extremity DVT. No popliteal cyst is demonstrated. Chest x-ray: Attestation: I personally reviewed and interpreted this imaging study as follows: My impression: Cardiomegaly. 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 No pneumothorax. ECG Data Attestation: I personally reviewed and interpreted this ECG as follows: Interpretation: AFib with a rate of 95 QRS of 102 QTC of 419. Patient has T-wave changes to 3 AVF and V1 through V3. Patient's prior EKG from 01/18/2017 appears to have similar T-wave changes. MDM Narrative Medical decision making narrative: Patient's oxygen does drop but according to her this is a known issue. She was given oxygen and had at home but does not normally use it. She is asymptomatic denying any shortness of breath currently. She does not have any wheeze currently. Her other clear pulmonary issues. She is therapeutic on Coumadin with no tachycardia or chest pain. Her lower extremity does not show any signs of DVT although this would be unlikely on Coumadin. X-ray was ordered pain medication. Patient does have a little bit of white count is 16. There is no signs of septic joint clinically. Patient has not had any trauma or recent injuries. Patient is signed out to Dr. Howell pending knee x-ray and while waiting to see if her pain is controlled with medication and for final disposition. <Adryan Howell, - Last Filed: 12/02/17 09:26> Lab Data Lab Results 12/02/17 12/02/17 12/02/17 Range/Units 05:37 05:37 05:37 WBC 16.8 H (4.5-11.0) X10^3/uL RBC 4.66 (4.0-5.2) X10^6/uL Hgb 13.1 (12.0-16.0) g/dL Hct 39.8 (36-46) % MCV 85.4 (80-100) fL MCH 28.2 (26-34) PG MCHC 33.0 (30-36) % RDW 17.1 H (11.6-14.8) % Plt Count 127 L (150-400) X10^3/uL Neut % (Auto) 80.2 H (50-75) % Lymph % (Auto) 10.4 L (25-40) % Lagrange % (Auto) 7.3 (3-14) % Eos % (Auto) 1.2 L (2-4) % Baso % (Auto) 0.9 (0-2) % Neut # (Auto) 39839 H (0889-9533) /uL PT 40.0 H (10.1-12.7) SECONDS INR 3.6 H (0.9-1.3) APTT 53 H (26.4-36.2) SECONDS Sodium 139 (137-145) mmol/L Potassium 4.2 (3.4-5.1) mmol/L Chloride 101 (98-107) mmol/L Carbon Dioxide 29 (22-32) mmol/L BUN 15 (7-17) mg/dL Creatinine 0.70 (0.52-1.04) mg/dL Estimated GFR > 60.0 (>60) mL/min BUN/Creatinine Ratio 21.4 (6-22) Glucose 143 H (80-110) mg/dL Calcium 8.7 (8.4-10.2) mg/dL Total Bilirubin 1.1 (0.2-1.3) mg/dL AST 23 (14-36) IU/L ALT 19 (9-52) IU/L Alkaline Phosphatase 114 (38-126) U/L Total Creatine Kinase 22 L (30-135) U/L CK-MB (CK-2) TNP CK-MB (CK-2) Rel Index TNP Troponin I < 0.012 (0.01-0.034) ng/mL B-Natriuretic Peptide 586.0 H (<100) Total Protein 7.7 (6.3-8.2) g/dL Albumin 4.0 (3.5-5.0) g/dL Globulin 3.7 (1.7-4.1) g/dL Albumin/Globulin Ratio 1.1 (1.0-2.8) Lipase 17 L (23-300) U/L MDM Narrative Medical decision making narrative: 0900: Received turned over from night provider. Perform my own history and review the patient's labs and x-rays. Patient is here today for her right knee pain there is no trauma. The x-ray today shows arthritis but no fractures. I suspect that is the arthritis that is causing her symptoms. I have low suspicion for septic joint. Patient does have a history of congestive heart failure. She is on diuretics. She has been taking her diuretics. At times here in the emergency department her oxygen saturations have been in the low 90s and dropped into the 80s especially with movement. Patient reports no symptoms when this happens however she does state that at home she gets short of breath when she walks. She states she does not walk very far because the pain that she has in her back and also because of the shortness of breath. She states she has been on oxygen in the past but that has been several months ago and she states she was ?improving ?so she no longer uses the oxygen. Her chest x-ray today shows atelectasis and potentially trace pulmonary infiltrate. There is no definitive pneumonia. She does have an elevated white blood cell count however no fevers and no productive cough. Unsure as the exact etiology of the leukocytosis however no infection was found today. She is nontoxic appearing. Will hold on any antibiotics for now. We did discuss her knee pain. Informed her that she needs to talk with her primary care doctor about potentially seen an orthopedic surgeon to discuss injections versus knee replacement. She has had a knee replacement and her other knee in the past. She has no chest pain. Patient does have a follow up with her primary care doctor on Sunday. She was encouraged to keep this appointment. She was encouraged to talk with her primary doctor about the chest x-ray findings today, the potential for needing oxygen again at home and also the orthopedic follow-up. She was given return precautions. I did inform her that arthritis is a non reversible process and that she is going to have pain in her knee despite any medications that she is taking. She is on a stool softener. Will hold on further workup for now. Low suspicion for serious bacterial infection low suspicion for sepsis. I feel that clinically she does not have pneumonia and given the fact that there is no definitive infiltrate on the chest x-ray will hold on antibiotics. Patient and her expressed understanding and agreement. Discharge Plan Departure Patient Disposition: Home Clinical Impression: Arthritis, LYNCH (dyspnea on exertion) Discharge Date/Time: 12/02/17 09:54 Interventions: ED Discharge Assessment Last Done: 12/02/17 09:52 Instructions: Arthritis (Alternative Therapy), DI for Shortness of Breath, DI for Arthritis, How to Manage Shortness of Breath Activity Restrictions/Additional Instructions: No emergent conditions were found on your workup here today in the emergency department. Your oxygen saturations were dropping especially with any activity. You do need to talk with your primary care doctor at her appointment on Sunday about this and to discuss the indications for oxygen at home. You do have arthritis in her knee which I suspect is the cause of the pain. Continue with your pain medication and anti-inflammatories. Unfortunately there is no pain medication that is going to completely take this pain away. You need to talk with your primary doctor about a referral to see orthopedics. I would also recommend that you talk with your primary doctor about the chest x-ray today. Return to the emergency department for any new symptoms, chest pain, worsening shortness of breath, fevers or any other concerning symptoms Prescriptions: No Action cholecalciferol (vitamin D3) [Vitamin D3] 2,000 UNIT capsule 2,000 unit PO QDAY Qty: 0 RF: 0 Diltiazem Hydrochloride (#DILTIAZEM) 360 mg PO Q DAY Qty: 90 RF: 0 polyethylene glycol 3350 [Miralax] 119 GM powder 17 gm PO QDAYP PRNQty: 1 RF: 0 oxycodone 5 MG tablet 1 - 2 tab PO Q4HP PRNQty: 0 RF: 0 duloxetine 60 MG capsule,delayed release(DR/EC) 60 mg PO QDAY Qty: 0 RF: 0 ondansetron HCl 4 MG tablet 4 mg PO TIDP PRNQty: 0 RF: 0 sennosides [senna] 8.6 MG tablet 1 tab PO QDAYP PRNQty: 0 RF: 0 cetirizine 10 MG tablet 10 mg PO QDAY Qty: 0 RF: 0 acetaminophen 650 MG tablet extended release 650 mg PO PRN PRNQty: 0 RF: 0 pseudoephedrine-guaifenesin [Mucinex D] 600 MG/60 MG tablet extended release 12 hr 1 tab PO QDAY Qty: 0 RF: 0 magnesium oxide 250 MG tablet 250 mg PO QPM Qty: 0 RF: 0 cyanocobalamin (vitamin B-12) 1,000 MCG tablet extended release 1,000 mcg PO QPM Qty: 0 RF: 0 metoprolol succinate 100 MG tablet extended release 24 hr 100 mg PO QDAY Qty: 30 RF: 0 fentanyl 25 MCG/HR patch 72 hour 1 patch Topical Q72H Qty: 0 RF: 0 furosemide 40 MG tablet 40 mg PO QDAY Qty: 30 RF: 0 pantoprazole 40 MG tablet,delayed release (DR/EC) 40 mg PO 0600 Qty: 30 RF: 0 latanoprost 0.005 % drops 1 drp OPHTH HS Qty: 0 RF: 0 clobetasol 0.05 % ointment 1 applictn Topical SEE INSTRUCTIONS Qty: 60 RF: 0 warfarin 5 mg tablet 5 mg PO QMWF RF: 0
[2017-12-02 05:53] LABS: PTT Partial Thromboplastin Tim 53 SECONDS (26.4-36.2)
[2017-12-02 05:56] LABS: Alanine Aminotransferase 19 IU/L (9-52); Albumin Globulin Ratio 1.1 (1.0-2.8); Alkaline Phosphatase 114 U/L (38-126); Aspartate Aminotransferase 23 IU/L (14-36); BUN Creatinine Ratio 21.4 (6-22); Bilirubin Total 1.1 mg/dL (0.2-1.3); Blood Urea Nitrogen 15 mg/dL (7-17); Calcium 8.7 mg/dL (8.4-10.2); Carbon Dioxide 29 mmol/L (22-32); Chloride 101 mmol/L (98-107); Creatine Kinase 22 U/L (30-135); Estimated Glomerular Filt Rate > 60.0 mL/min (>60); Globulin 3.7 g/dL (1.7-4.1); Glucose 143 mg/dL (80-110); HEMOLYSIS 26 (0-50); Lipase 17 U/L (23-300); Potassium 4.2 mmol/L (3.4-5.1); Sodium 139 mmol/L (137-145); Total Protein 7.7 g/dL (6.3-8.2)
[2017-12-02] MEDS: ASPIRIN 81 MG TAB 324 MG PO (05:59)
[2017-12-02] MEDS: SODIUM CHLORIDE 0.9% 1,000 ML 150 ML IV (05:59)
[2017-12-02 06:00] VITALS: BP 109/58; PULSE 90; RESP 28; O2SAT 96
[2017-12-02 06:13] LABS: Troponin I < 0.012 ng/mL (0.01-0.034)
[2017-12-02 07:00] VITALS: BP 112/90; PULSE 87; RESP 21; O2SAT 96
--- NOTE | 2017-12-02 07:24 | DI.RAD.S_ITS ---
PROCEDURE: XR KNEE LT 3V INDICATIONS: pain TECHNIQUE: 3 views of the knee were acquired. COMPARISON: None. FINDINGS: Bones: No acute fracture dislocation. There are moderate sized tricompartmental osteophytes. Soft tissues: No joint effusion. No suspicious soft tissue calcifications. IMPRESSION: Moderate to severe degenerative change. No acute radiographic findings. If pain persists, repeat study in 5-7 days is recommended to exclude occult fracture. Dictated by: Maria G Downey M.D. on 12/02/2017 at 8:53 Approved by: Maria G Downey M.D. on 12/02/2017 at 8:54
[2017-12-02 07:30] VITALS: BP 114/80; PULSE 83; RESP 22; O2SAT 89
[2017-12-02 08:44] VITALS: BP 105/55; PULSE 79; RESP 19; O2SAT 92
[2017-12-02] MEDS: HYDROMORPHONE 1 MG INJ IV (08:45)
[2017-12-02 09:00] VITALS: BP 103/62; PULSE 80; RESP 20; O2SAT 91
== END 2017-12-02 09:54 | disposition home or self-care (01) ==
PROVIDERS: Emergency Medicine; Emergency Provider Emergency Medicine; PCP Internal Medicine
DX: M17.11 Unilateral primary osteoarthritis, right knee (principal); R06.09 Other forms of dyspnea
CPT/HCPCS: 36591; 71045; 73562; 80053; 82550; 83690; 83880; 84484; 85025; 85610; 85730; 93005; 93010; 93971; 96361; 96374; 99284; 99285; J1170

== ENCOUNTER 2018-01-18 16:36 | Inpatient (IN) | payer MEDICARE, OTHER, SELFPAY ==
[2018-01-18] VITALS (13 sets, daily range): BP systolic 105–133; BP diastolic 58–81; PULSE 81–106; RESP 13–36; TEMP 36.8–37.4; O2SAT 87–98; BMI 28.2; BMI 28.3
--- NOTE | 2018-01-18 16:33 | ED_ITS ---
HPI - Weakness <GADIEL Hudson - Last Filed: 01/18/18 21:25> General Chief complaint: Weakness Stated complaint: generalized weakness, fall one wk ago on thinners Time Seen by Provider: 01/18/18 16:46 Source: patient and EMS Mode of arrival: EMS Limitations: no limitations History of Present Illness HPI Narrative: 82-year-old female with history of AFib that is a non smoker currently on a blood thinner here for complaint of a ground level fall 1 week ago. She also reports having weakness today where she states was hard for her to get out of bed. She denies any chest pain. She denies any shortness of breath. No fevers no chills. She denies any abdominal pain. She states that she hit her head and has neck pain status post a ground level fall 1 week ago where she fell backwards landing on her buttocks. She complains of having pain into her hips and into her lower back as well. She denies any loss of conscious. No nausea vomiting. She denies any urinary symptoms. Positive p.o. intake. She denies any fevers. Related Data Home Medications Medication Instructions Recorded Confirmed duloxetine 60 mg PO BID #0 03/13/16 01/18/18 ondansetron HCl 4 mg PO PRN PRN #0 03/13/16 01/18/18 oxycodone 5 mg PO Q6H PRN #0 03/13/16 01/18/18 sennosides [senna] 1 tab PO BID #0 03/13/16 01/18/18 cetirizine 10 mg PO DAILY #0 11/02/16 01/18/18 cyanocobalamin (vitamin B-12) 1,000 mcg PO QPM #0 11/02/16 01/18/18 fentanyl 1 patch TOPICAL Q72H #0 12/26/16 01/18/18 latanoprost 1 drp OPHTH BEDTIME #0 02/03/17 01/18/18 warfarin 5 mg tablet 5 mg PO QMWF 11/15/17 01/18/18 Vitamin D3 50 mcg PO DAILY 01/18/18 01/18/18 acetaminophen 500 mg PO PRN PRN 01/18/18 01/18/18 cannabidiol (CBD) extract 50 mg MISCELLANEOUS PRN PRN 01/18/18 01/18/18 diltiazem HCl [Cartia XT] 180 mg PO BID 01/18/18 01/18/18 docusate calcium 240 mg PO QPM 01/18/18 01/18/18 lidocaine 1 patch TOPICAL PRN PRN 01/18/18 01/18/18 metoprolol succinate 100 mg PO DAILY 01/18/18 01/18/18 pantoprazole 40 mg PO BID 01/18/18 01/18/18 polyethylene glycol 3350 [Miralax] 17 gm PO PRN PRN 01/18/18 01/18/18 potassium chloride 20 meq PO DAILY 01/18/18 01/18/18 timolol maleate 1 drp EYE-BOTH BID 01/18/18 01/18/18 torsemide 20 mg PO DAILY 01/18/18 01/18/18 warfarin 2.5 mg PO SUTUTHSA 01/18/18 01/18/18 Previous Rx's Medication Instructions Recorded clobetasol 0.05 % topical ointment 1 applictn TOPICAL .COMPLEX #30 12/17/17 gram Allergies Allergy/AdvReac Type Severity Reaction Status Date / Time Penicillins [PENICILLINS] Allergy Severe RASH/SWELLI Verified 09/07/17 10:08 NG sulfite [SULFITE] Allergy Severe GI UPSET Verified 09/07/17 10:08 gabapentin [GABAPENTIN] AdvReac Unknown LOW BP, Verified 09/07/17 10:08 CONFUSION pregabalin [From LYRICA] AdvReac Unknown LOW BP, Verified 09/07/17 10:08 CONFUSION Review of Systems <GADIEL Hudson - Last Filed: 01/18/18 21:25> Constitutional Reports weakness Eyes Denies change in vision, Denies eye discharge, Denies irritation and Denies loss of vision ENT Ears, Nose, Mouth, and Throat: Denies change in voice, Denies neck pain and Denies sore throat Cardiovascular Denies chest pain, Denies irregular heart rhythm, Denies lightheadedness, Denies palpitations, Denies dyspnea, Denies dyspnea on exertion and Denies orthopnea Respiratory Denies cough, Denies dyspnea, Denies dyspnea on exertion and Denies wheezing Gastrointestinal Gastrointestinal: Denies abdominal pain, Denies change in bowel habits, Denies diarrhea, Denies nausea and Denies vomiting Genitourinary Denies hematuria, Denies flank pain, Denies urinary incontinence and Denies urinary urgency Musculoskeletal Denies neck pain Comments: Pain to neck lower back and hips after ground level fall Integumentary/Breasts Denies pruritus, Denies erythema, Denies rash and Denies wounds Neurologic Denies confusion, Denies loss of vision and Reports weakness Comments: states that the back of her head during a ground level fall 1 week Psychiatric Denies anxiety, Denies confusion, Denies depression, Denies homicidal ideation and Denies suicidal ideation Endocrine Denies palpitations Hematologic/Lymphatic Denies easy bruising Allergic/Immunologic Denies wheezing Exam <MYCHAL HudsonP - Last Filed: 01/18/18 21:25> Initial Vital Signs Initial Vital Signs: Vital Signs Temperature 99.3 F 01/18/18 16:49 Pulse Rate 98 H 01/18/18 16:49 Respiratory Rate 36 H 01/18/18 16:49 Blood Pressure 133/81 01/18/18 16:49 Pulse Oximetry 87 L 01/18/18 16:49 HENMI Head: normal to inspection, normocephalic, atraumatic, No Figueroa's sign, No contusion, No palpable skull fracture, No raccoon eyes, No scalp lesion and No scalp tenderness Mouth: oral mucosae normal and moist mucous membranes Eyes Conjunctivae: conjunctivae normal Sclera: sclerae normal Pupils: PERRL EOM: EOM intact bilaterally Resp Effort & Inspection: normal respiratory effort, able to speak in complete sentences, no respiratory distress and no use of accessory muscles Auscultation: clear to auscultation bilaterally, no rales, no rhonchi and no wheezes Cardio Rate: regular rate Rhythm: abnormal rhythm regularly irregular Heart Sounds: no click, no gallops, no murmurs and no rubs Pulses: normal peripheral pulses Back/Spine/Pelvis Cervical Spine: cervical spinal tenderness Thoracic/Lumbar Spine: lumbar spinal tenderness Skin General: no rashes or lesions noted, No jaundice and No petechiae Neuro General: alert, oriented x3, gait normal and no focal motor deficits Speech: speech normal <Adryan Howell DO - Last Filed: 01/18/18 21:26> Initial Vital Signs Initial Vital Signs: Vital Signs Temperature 99.3 F 01/18/18 16:49 Pulse Rate 98 H 01/18/18 16:49 Respiratory Rate 36 H 01/18/18 16:49 Blood Pressure 133/81 01/18/18 16:49 Pulse Oximetry 87 L 01/18/18 16:49 Course <GADIEL Hudson - Last Filed: 01/18/18 21:25> Orders Ordered: ED Orders 01/18/18 16:44 CT cervical spine wo con Stat CT head/brain wo con Stat XR hip w pel if done SUYAPA 3to4V Stat 01/18/18 16:45 XR chest 1V Stat EKG-12 Lead Stat 01/18/18 16:46 B Type Natriuretic Peptide Stat 01/18/18 16:57 Complete Blood Count AUTO DIFF Stat Comprehensive Metabolic Panel Stat Lipase Stat Prothrombin Time INR Stat Troponin & CK Cardiac Panel Stat 01/18/18 19:01 Urine Microscopic Stat 01/18/18 19:43 CT lumbar spine wo con Stat 01/18/18 21:08 Blood Culture Stat Sodium Chloride (Normal Saline 0.9%) 1,000 mls @ 150 mls/hr IV CONT NOELLE Last Admin: 01/18/18 16:59 Dose: 150 mls/hr Discontinued Medications Furosemide (Lasix) 40 mg IV NOW ONE Stop: 01/18/18 19:32 Last Admin: 01/18/18 19:53 Dose: 40 mg Levofloxacin (Levaquin) 750 mg in 150 mls @ 100 mls/hr IV NOW ONE Stop: 01/18/18 21:05 Last Admin: 01/18/18 19:46 Dose: 100 mls/hr Vital Signs - 8 hr 01/18/18 16:49 01/18/18 17:03 01/18/18 17:30 Temperature 99.3 F Pulse Rate 98 H 106 H 98 H Respiratory Rate 36 H 33 H 26 H Blood Pressure 133/81 Blood Pressure [Right Arm] 105/67 118/81 Pulse Oximetry 87 L 96 96 01/18/18 18:00 01/18/18 18:30 01/18/18 19:00 Temperature Pulse Rate 98 H 82 81 Respiratory Rate 26 H 24 24 Blood Pressure Blood Pressure [Right Arm] 118/72 111/58 L 114/69 Pulse Oximetry 98 97 97 01/18/18 19:30 01/18/18 20:00 01/18/18 20:30 Temperature Pulse Rate 93 H 86 88 Respiratory Rate 21 13 24 Blood Pressure Blood Pressure [Right Arm] 107/60 113/70 Pulse Oximetry 96 96 95 01/18/18 21:00 Temperature Pulse Rate 92 H Respiratory Rate 29 H Blood Pressure Blood Pressure [Right Arm] 115/68 Pulse Oximetry 96 <Adryan Howell DO - Last Filed: 01/18/18 21:26> Orders Ordered: ED Orders 01/18/18 16:44 CT cervical spine wo con Stat CT head/brain wo con Stat XR hip w pel if done SUYAPA 3to4V Stat 01/18/18 16:45 XR chest 1V Stat EKG-12 Lead Stat 01/18/18 16:46 B Type Natriuretic Peptide Stat 01/18/18 16:57 Complete Blood Count AUTO DIFF Stat Comprehensive Metabolic Panel Stat Lipase Stat Prothrombin Time INR Stat Troponin & CK Cardiac Panel Stat 01/18/18 19:01 Urine Microscopic Stat 01/18/18 19:43 CT lumbar spine wo con Stat 01/18/18 21:08 Blood Culture Stat Sodium Chloride (Normal Saline 0.9%) 1,000 mls @ 150 mls/hr IV CONT NOELLE Last Admin: 01/18/18 16:59 Dose: 150 mls/hr Discontinued Medications Furosemide (Lasix) 40 mg IV NOW ONE Stop: 01/18/18 19:32 Last Admin: 01/18/18 19:53 Dose: 40 mg Levofloxacin (Levaquin) 750 mg in 150 mls @ 100 mls/hr IV NOW ONE Stop: 01/18/18 21:05 Last Admin: 01/18/18 19:46 Dose: 100 mls/hr Vital Signs - 8 hr 01/18/18 16:49 01/18/18 17:03 01/18/18 17:30 Temperature 99.3 F Pulse Rate 98 H 106 H 98 H Respiratory Rate 36 H 33 H 26 H Blood Pressure 133/81 Blood Pressure [Right Arm] 105/67 118/81 Pulse Oximetry 87 L 96 96 01/18/18 18:00 01/18/18 18:30 01/18/18 19:00 Temperature Pulse Rate 98 H 82 81 Respiratory Rate 26 H 24 24 Blood Pressure Blood Pressure [Right Arm] 118/72 111/58 L 114/69 Pulse Oximetry 98 97 97 01/18/18 19:30 01/18/18 20:00 01/18/18 20:30 Temperature Pulse Rate 93 H 86 88 Respiratory Rate 21 13 24 Blood Pressure Blood Pressure [Right Arm] 107/60 113/70 Pulse Oximetry 96 96 95 01/18/18 21:00 Temperature Pulse Rate 92 H Respiratory Rate 29 H Blood Pressure Blood Pressure [Right Arm] 115/68 Pulse Oximetry 96 MDM - Weakness <Jude GADIEL Meade - Last Filed: 01/18/18 21:25> Lab Data Result diagrams: 01/18/18 16:57 01/18/18 16:57 Lab Results 01/18/18 01/18/18 01/18/18 Range/Units 16:46 16:57 16:57 WBC 20.4 H (4.5-11.0) X10^3/uL RBC 4.59 (4.0-5.2) X10^6/uL Hgb 13.1 (12.0-16.0) g/dL Hct 40.4 (36-46) % MCV 88.0 (80-100) fL MCH 28.5 (26-34) PG MCHC 32.4 (30-36) % RDW 16.1 H (11.6-14.8) % Plt Count 222 (150-400) X10^3/uL Neut % (Auto) 86.4 H (50-75) % Lymph % (Auto) 6.4 L (25-40) % Sargent % (Auto) 6.2 (3-14) % Eos % (Auto) 0.4 L (2-4) % Baso % (Auto) 0.6 (0-2) % Neut # (Auto) 61292 H (5498-9019) /uL PT (10.1-12.7) SECONDS INR (0.9-1.3) Sodium 140 (137-145) mmol/L Potassium 4.2 (3.4-5.1) mmol/L Chloride 98 (98-107) mmol/L Carbon Dioxide 30 (22-32) mmol/L BUN 14 (7-17) mg/dL Creatinine 0.70 (0.52-1.04) mg/dL Estimated GFR > 60.0 (>60) mL/min BUN/Creatinine Ratio 20.0 (6-22) Glucose 129 H (80-110) mg/dL Lactate (0.7-2.1) mmol/L Calcium 8.8 (8.4-10.2) mg/dL Total Bilirubin 1.1 (0.2-1.3) mg/dL AST 23 (14-36) IU/L ALT 20 (9-52) IU/L Alkaline Phosphatase 127 H (38-126) U/L Total Creatine Kinase < 20 L (30-135) U/L CK-MB (CK-2) TNP CK-MB (CK-2) Rel Index TNP Troponin I < 0.012 (0.01-0.034) ng/mL B-Natriuretic Peptide 552.0 H (<100) Total Protein 8.0 (6.3-8.2) g/dL Albumin 4.2 (3.5-5.0) g/dL Globulin 3.8 (1.7-4.1) g/dL Albumin/Globulin Ratio 1.1 (1.0-2.8) Lipase 26 (23-300) U/L Urine RBC (0-5/HPF) Urine WBC (0-5/HPF) Ur Squamous Epith Cells Urine Bacteria (None) Ur Culture Indicated? Micro UA Comment 01/18/18 01/18/18 01/18/18 Range/Units 16:57 19:01 Unknown WBC (4.5-11.0) X10^3/uL RBC (4.0-5.2) X10^6/uL Hgb (12.0-16.0) g/dL Hct (36-46) % MCV (80-100) fL MCH (26-34) PG MCHC (30-36) % RDW (11.6-14.8) % Plt Count (150-400) X10^3/uL Neut % (Auto) (50-75) % Lymph % (Auto) (25-40) % Sargent % (Auto) (3-14) % Eos % (Auto) (2-4) % Baso % (Auto) (0-2) % Neut # (Auto) (2006-8905) /uL PT 35.7 H (10.1-12.7) SECONDS INR 3.0 H (0.9-1.3) Sodium (137-145) mmol/L Potassium (3.4-5.1) mmol/L Chloride (98-107) mmol/L Carbon Dioxide (22-32) mmol/L BUN (7-17) mg/dL Creatinine (0.52-1.04) mg/dL Estimated GFR (>60) mL/min BUN/Creatinine Ratio (6-22) Glucose (80-110) mg/dL Lactate 1.4 (0.7-2.1) mmol/L Calcium (8.4-10.2) mg/dL Total Bilirubin (0.2-1.3) mg/dL AST (14-36) IU/L ALT (9-52) IU/L Alkaline Phosphatase (38-126) U/L Total Creatine Kinase (30-135) U/L CK-MB (CK-2) CK-MB (CK-2) Rel Index Troponin I (0.01-0.034) ng/mL B-Natriuretic Peptide (<100) Total Protein (6.3-8.2) g/dL Albumin (3.5-5.0) g/dL Globulin (1.7-4.1) g/dL Albumin/Globulin Ratio (1.0-2.8) Lipase (23-300) U/L Urine RBC None seen (0-5/HPF) Urine WBC 10-30/hpf H (0-5/HPF) Ur Squamous Epith Cells 10-30 /hpf H Urine Bacteria Many (>30) H (None) Ur Culture Indicated? Cult not indicated Micro UA Comment Not Reportable Urine Dip Bedside Urine Glucose Negative Bedside Urine Bilirubin - Negative Bedside Urine Ketone - Negative Urine Specific Brinson 1.020 Bedside Urine Occult Blood - Negative Bedside Urine pH 6.0 Bedside Urine Protein + 30 Bedside Urine Urobilinogen +/- 1mg Bedside Urine Nitrite + Positive Bedside Urine Leukocytes - Negative Esterase Imaging Data Lumbar spine : Radiologist's impression: [place] [address] CT Scan Report Signed Patient: Nathaly Dee MMR#: [id number] : 7Acct:[id number] Age/Sex: 82 / FDate of Service: 01/18/18 Loc: ED Accession Number: [id number] Procedure: CT lumbar spine wo con Ordering Provider: Jude Meade PROCEDURE: CT LUMBAR SPINE WO CON INDICATIONS: pain lumbar region after ground level fall TECHNIQUE: Noncontrast 3 mm thick sections acquired from the T12 level to the sacrum. Sagittal and coronal reformats were constructed. For radiation dose reduction, the following was used: automated exposure control. COMPARISON: [facility], , L-SPINE WITHOUT CONTRAST, 05/17/2017, 13:34. FINDINGS: Image quality: Excellent. Bones: There is exaggerated lordosis of lumbar spine. Severe wedge compression deformities are present at L1 and L2 and a moderate wedge compression deformity is present at L3. There is depression of the superior L5 endplate. Although these findings are similar to the MRI of the lumbar spine dated 05/17/17. Patient is status post L1, L2, and L3 vertebroplasty. Patient is status post posterior fixation and discectomy at L4-5. Hardware appears intact. No acute fracture or dislocation. No new wedge compression deformity. No paraspinous hematomas. Dense atheromatous calcifications are present throughout the visualized portions of the abdominal aorta. Visualized portions of the bowel demonstrate normal caliber and wall thickness. No retroperitoneal masses or hematoma. IMPRESSION: 1. Severe compression deformities and postsurgical changes similar to the MRI of the lumbar spine dated 05/17/17. No findings to suggest new acute compression deformity or fracture. Dictated by: Maria G Downey M.D. on 01/18/2018 at 20:31 Approved by: Maria G Downey M.D. on 01/18/2018 at 20:36 Chest x-ray: Radiologist's impression: [address] [address] XRay Report Signed Patient: Nathaly Dee [facility]#: [id number] : 1936Acct:[id number] Age/Sex: 82 / FDate of Service: 01/18/18 Loc: ED Accession Number: [id number] Procedure: XR chest 1V Ordering Provider: Jude Meade PROCEDURE: XR CHEST 1V INDICATIONS: complains of weakness TECHNIQUE: One view of the chest was acquired. COMPARISON: [facility], CR, XR CHEST 1V, 12/02/2017, 5:39. [facility], US, US PERIPH VENOUS LOW EXTREM LT, 12/02/2017, 6:09. FINDINGS: Surgical changes and devices: None. Lungs and pleura: There are perihilar interstitial radiopacities. No pleural effusion or pneumothorax. Mediastinum: Mediastinal contours appear normal. Heart size is enlarged, as before. Bones and chest wall: No suspicious bony lesions. Overlying soft tissues appear unremarkable. IMPRESSION: Perihilar interstitial opacities suggesting fluid overload. Dictated by: Maria G Downey M.D. on 01/18/2018 at 17:39 Approved by: Maria G Downey M.D. on 01/18/2018 at 17:40 hip pelvis: Radiologist's impression: [address] [address] XRay Report Signed Patient: Nathaly Dee [facility]#: [id number] : 1935cct:[id number] Age/Sex: 82 / FDate of Service: 01/18/18 Loc: ED Accession Number: [id number] Procedure: XR hip w pel if done SUYAPA 3to4V Ordering Provider: Jude Meade PROCEDURE: XR HIP W PEL IF DONE LT MIN 4V INDICATIONS: pain to hips after ground level fall TECHNIQUE: AP pelvis with lateral view(s) of the bilateral hip(s). COMPARISON: None. FINDINGS: Bones: No fractures or dislocations. Pelvic ring appears intact. There is bilateral joint space narrowing, osteophytosis, articular surface sclerosis, and mild deformity of the femoral heads. No suspicious bony lesions. Soft tissues: The visualized bowel gas pattern is normal. No suspicious soft tissue calcifications. IMPRESSION: Degenerative change. No acute radiographic findings. If there is high clinical suspicion for occult fracture, CT of the pelvis is recommended. Dictated by: Maria G Downey M.D. on 01/18/2018 at 17:38 Approved by: Maria G Downey M.D. on 01/18/2018 at 17:39 CT scan - head: Radiologist's impression: [address] [address] [address] Scan Report Signed Patient: Nathaly Dee [facility]#: [id number] : 7Acct:[id number] Age/Sex: 82 / FDate of Service: 01/18/18 Loc: ED Accession Number: [id number] Procedure: CT head/brain wo con Ordering Provider: Jude Meade PROCEDURE: CT HEAD/BRAIN WO CON INDICATIONS: ground level fall hitting head on blood thinner TECHNIQUE: Noncontrast 4.5 mm thick angled axial sections acquired from the foramen magnum to the vertex, with coronal and sagittal reformats. For radiation dose reduction, the following was used: automated exposure control, adjustment of mA and/or kV according to patient size. COMPARISON: [facility], CT, HEAD WITHOUT CONTRAST, 02/21/2015, 22:15. FINDINGS: Image quality: Excellent. CSF spaces: Basal cisterns are patent. No extra-axial fluid collections. The ventricles are symmetric in size and shape. Brain: No intracranial bleeds or masses. There is cerebral volume loss for age , with resultant ventricular and sulcal prominence. There are periventricular and deep white matter chronic small vessel ischemic changes. There is intracranial internal carotid artery atherosclerosis. Skull and face: Calvarium and visualized facial bones appear intact, without suspicious lesions. Sinuses: Visualized sinuses and mastoids are clear. IMPRESSION: 1. No acute intracranial findings. 2. Mild findings likely associated with chronic microvascular ischemic changes. Dictated by: Maria G Downey M.D. on 01/18/2018 at 17:31 Approved by: Maria G Downey M.D. on 01/18/2018 at 17:34 c spine: Radiologist's impression: [place] [address] CT Scan Report Signed Patient: Nathaly Dee MMR#: [id number] : 7Acct:[id number] Age/Sex: 82 / FDate of Service: 01/18/18 Loc: ED Accession Number: [id number] Procedure: CT cervical spine wo con Ordering Provider: Jude Meade PROCEDURE: CT CERVICAL SPINE WO CON INDICATIONS: ground level fall 1 week ago pain to head and neck TECHNIQUE: Noncontrast 3 mm thick sections acquired from the skull base to the T4 level. Sagittal and coronal reformats were then constructed. For radiation dose reduction, the following was used: automated exposure control, adjustment of mA and/or kV according to patient size. COMPARISON: [facility], , C-SPINE WITHOUT CONTRAST, 12/12/2013, 18:51. [facility], , T-SPINE WITHOUT CONTRAST, 03/24/2016, 9:31. FINDINGS: Image quality: Excellent. Bones: No acute fracture or dislocation. There is grade I C4 on C5 retrolisthesis, similar in extent to the MRI of the cervical spine dated 12/12/13. Posterior fixation hardware at C5-6 and T1 appears intact. There is partial fusion at C5-6, as before. Soft tissues: Prevertebral soft tissues are normal in thickness. No paravertebral hematomas. No apical pneumothoraces. Probable atelectasis is present within the dependent right lung; however motion artifact in the reformatted view. IMPRESSION: 1. No acute cervical spine injury. 2. Spondylolisthesis and postsurgical changes as before. Dictated by: Maria G Downey M.D. on 01/18/2018 at 17:26 Approved by: Maria G Downey M.D. on 01/18/2018 at 17:31 [facility] Narrative Medical decision making narrative: patient with multiple complaints of pain after ground level fall [address] was obtained was negative for any acute findings. CT of the neck was also obtained was negative. Lumbar spine CT was obtained was also negative for any acute findings. X-ray of bilateral hips and pelvis was also obtained was negative. Chest x-ray shows infiltrates bilaterally to the hilar area suggestive of fluid overload. However white count was elevated at 20 K so differential between pneumonia and CHF. her BNP was elevated at 550. she was given Lasix in the emergency room and was also started on antibiotics Levaquin. she is admitted to inpatient [facility] for further evaluation and treatment. Hospitalist was called and accepted patient. <Adryan Howell, DO - Last Filed: 01/18/18 21:26> Lab Data Lab Results 01/18/18 01/18/18 01/18/18 Range/Units 16:46 16:57 16:57 WBC 20.4 H (4.5-11.0) X10^3/uL RBC 4.59 (4.0-5.2) X10^6/uL Hgb 13.1 (12.0-16.0) g/dL Hct 40.4 (36-46) % MCV 88.0 (80-100) fL MCH 28.5 (26-34) PG MCHC 32.4 (30-36) % RDW 16.1 H (11.6-14.8) % Plt Count 222 (150-400) X10^3/uL Neut % (Auto) 86.4 H (50-75) % Lymph % (Auto) 6.4 L (25-40) % Sargent % (Auto) 6.2 (3-14) % Eos % (Auto) 0.4 L (2-4) % Baso % (Auto) 0.6 (0-2) % Neut # (Auto) 94274 H (8059-1162) /uL PT (10.1-12.7) SECONDS INR (0.9-1.3) Sodium 140 (137-145) mmol/L Potassium 4.2 (3.4-5.1) mmol/L Chloride 98 (98-107) mmol/L Carbon Dioxide 30 (22-32) mmol/L BUN 14 (7-17) mg/dL Creatinine 0.70 (0.52-1.04) mg/dL Estimated GFR > 60.0 (>60) mL/min BUN/Creatinine Ratio 20.0 (6-22) Glucose 129 H (80-110) mg/dL Lactate (0.7-2.1) mmol/L Calcium 8.8 (8.4-10.2) mg/dL Total Bilirubin 1.1 (0.2-1.3) mg/dL AST 23 (14-36) IU/L ALT 20 (9-52) IU/L Alkaline Phosphatase 127 H (38-126) U/L Total Creatine Kinase < 20 L (30-135) U/L CK-MB (CK-2) TNP CK-MB (CK-2) Rel Index TNP Troponin I < 0.012 (0.01-0.034) ng/mL B-Natriuretic Peptide 552.0 H (<100) Total Protein 8.0 (6.3-8.2) g/dL Albumin 4.2 (3.5-5.0) g/dL Globulin 3.8 (1.7-4.1) g/dL Albumin/Globulin Ratio 1.1 (1.0-2.8) Lipase 26 (23-300) U/L Urine RBC (0-5/HPF) Urine WBC (0-5/HPF) Ur Squamous Epith Cells Urine Bacteria (None) Ur Culture Indicated? Micro UA Comment 01/18/18 01/18/18 01/18/18 Range/Units 16:57 19:01 Unknown WBC (4.5-11.0) X10^3/uL RBC (4.0-5.2) X10^6/uL Hgb (12.0-16.0) g/dL Hct (36-46) % MCV (80-100) fL MCH (26-34) PG MCHC (30-36) % RDW (11.6-14.8) % Plt Count (150-400) X10^3/uL Neut % (Auto) (50-75) % Lymph % (Auto) (25-40) % Sargent % (Auto) (3-14) % Eos % (Auto) (2-4) % Baso % (Auto) (0-2) % Neut # (Auto) (3079-8769) /uL PT 35.7 H (10.1-12.7) SECONDS INR 3.0 H (0.9-1.3) Sodium (137-145) mmol/L Potassium (3.4-5.1) mmol/L Chloride (98-107) mmol/L Carbon Dioxide (22-32) mmol/L BUN (7-17) mg/dL Creatinine (0.52-1.04) mg/dL Estimated GFR (>60) mL/min BUN/Creatinine Ratio (6-22) Glucose (80-110) mg/dL Lactate 1.4 (0.7-2.1) mmol/L Calcium (8.4-10.2) mg/dL Total Bilirubin (0.2-1.3) mg/dL AST (14-36) IU/L ALT (9-52) IU/L Alkaline Phosphatase (38-126) U/L Total Creatine Kinase (30-135) U/L CK-MB (CK-2) CK-MB (CK-2) Rel Index Troponin I (0.01-0.034) ng/mL B-Natriuretic Peptide (<100) Total Protein (6.3-8.2) g/dL Albumin (3.5-5.0) g/dL Globulin (1.7-4.1) g/dL Albumin/Globulin Ratio (1.0-2.8) Lipase (23-300) U/L Urine RBC None seen (0-5/HPF) Urine WBC 10-30/hpf H (0-5/HPF) Ur Squamous Epith Cells 10-30 /hpf H Urine Bacteria Many (>30) H (None) Ur Culture Indicated? Cult not indicated Micro UA Comment Not Reportable Urine Dip Bedside Urine Glucose Negative Bedside Urine Bilirubin - Negative Bedside Urine Ketone - Negative Urine Specific Brinson 1.020 Bedside Urine Occult Blood - Negative Bedside Urine pH 6.0 Bedside Urine Protein + 30 Bedside Urine Urobilinogen +/- 1mg Bedside Urine Nitrite + Positive Bedside Urine Leukocytes - Negative Esterase Discharge Plan Departure Patient Disposition: Admitted As Inpatient Clinical Impression: Congestive heart failure, Weakness Admit Date/Time: 01/18/18 21:11 Admit Provider: Ralph Broussard <Adryan Howell DO - Last Filed: 01/18/18 21:26> Cosign ED Attending Cosjaydeature Attestation: I was available for consultation during this patient's emergency department encounter
--- NOTE | 2018-01-18 16:44 | DI.CT.S_ITS ---
PROCEDURE: CT HEAD/BRAIN WO CON INDICATIONS: ground level fall hitting head on blood thinner TECHNIQUE: Noncontrast 4.5 mm thick angled axial sections acquired from the foramen magnum to the vertex, with coronal and sagittal reformats. For radiation dose reduction, the following was used: automated exposure control, adjustment of mA and/or kV according to patient size. COMPARISON: [facility], CT, HEAD WITHOUT CONTRAST, 02/21/2015, 22:15. FINDINGS: Image quality: Excellent. CSF spaces: Basal cisterns are patent. No extra-axial fluid collections. The ventricles are symmetric in size and shape. Brain: No intracranial bleeds or masses. There is cerebral volume loss for age, with resultant ventricular and sulcal prominence. There are periventricular and deep white matter chronic small vessel ischemic changes. There is intracranial internal carotid artery atherosclerosis. Skull and face: Calvarium and visualized facial bones appear intact, without suspicious lesions. Sinuses: Visualized sinuses and mastoids are clear. IMPRESSION: 1. No acute intracranial findings. 2. Mild findings likely associated with chronic microvascular ischemic changes. Dictated by: Maria G Downey M.D. on 01/18/2018 at 17:31 Approved by: Maria G Downey M.D. on 01/18/2018 at 17:34
--- NOTE | 2018-01-18 16:44 | DI.RAD.S_ITS ---
PROCEDURE: XR HIP W PEL IF DONE LT MIN 4V INDICATIONS: pain to hips after ground level fall TECHNIQUE: AP pelvis with lateral view(s) of the bilateral hip(s). COMPARISON: None. FINDINGS: Bones: No fractures or dislocations. Pelvic ring appears intact. There is bilateral joint space narrowing, osteophytosis, articular surface sclerosis, and mild deformity of the femoral heads. No suspicious bony lesions. Soft tissues: The visualized bowel gas pattern is normal. No suspicious soft tissue calcifications. IMPRESSION: Degenerative change. No acute radiographic findings. If there is high clinical suspicion for occult fracture, CT of the pelvis is recommended. Dictated by: Maria G Downey M.D. on 01/18/2018 at 17:38 Approved by: Maria G Downey M.D. on 01/18/2018 at 17:39
--- NOTE | 2018-01-18 16:44 | DI.CT.S_ITS ---
PROCEDURE: CT CERVICAL SPINE WO CON INDICATIONS: ground level fall 1 week ago pain to head and neck TECHNIQUE: Noncontrast 3 mm thick sections acquired from the skull base to the T4 level. Sagittal and coronal reformats were then constructed. For radiation dose reduction, the following was used: automated exposure control, adjustment of mA and/or kV according to patient size. COMPARISON: [facility], MR, C-SPINE WITHOUT CONTRAST, 12/12/2013, 18:51. [facility], MR, T-SPINE WITHOUT CONTRAST, 03/24/2016, 9:31. FINDINGS: Image quality: Excellent. Bones: No acute fracture or dislocation. There is grade I C4 on C5 retrolisthesis, similar in extent to the MRI of the cervical spine dated 12/12/13. Posterior fixation hardware at C5-6 and T1 appears intact. There is partial fusion at C5-6, as before. Soft tissues: Prevertebral soft tissues are normal in thickness. No paravertebral hematomas. No apical pneumothoraces. Probable atelectasis is present within the dependent right lung; however motion artifact in the reformatted view. IMPRESSION: 1. No acute cervical spine injury. 2. Spondylolisthesis and postsurgical changes as before. Dictated by: Maria G Downey M.D. on 01/18/2018 at 17:26 Approved by: Maria G Downey M.D. on 01/18/2018 at 17:31
--- NOTE | 2018-01-18 16:45 | DI.RAD.S_ITS ---
PROCEDURE: XR CHEST 1V INDICATIONS: complains of weakness TECHNIQUE: One view of the chest was acquired. COMPARISON: [facility], CR, XR CHEST 1V, 12/02/2017, 5:39. [facility], US, US PERIPH VENOUS LOW EXTREM LT, 12/02/2017, 6:09. FINDINGS: Surgical changes and devices: None. Lungs and pleura: There are perihilar interstitial radiopacities. No pleural effusion or pneumothorax. Mediastinum: Mediastinal contours appear normal. Heart size is enlarged, as before. Bones and chest wall: No suspicious bony lesions. Overlying soft tissues appear unremarkable. IMPRESSION: Perihilar interstitial opacities suggesting fluid overload. Dictated by: Maria G Downey M.D. on 01/18/2018 at 17:39 Approved by: Maria G Downey M.D. on 01/18/2018 at 17:40
[2018-01-18] MEDS: SODIUM CHLORIDE 0.9% 1,000 ML 150 ML IV (16:59)
[2018-01-18 17:03] LABS: Add Manual Diff / Slide Review NO; Basophils Percent Auto 0.6 % (0-2); Eosinophils Percent Auto 0.4 % (2-4); Hematocrit 40.4 % (36-46); Hemoglobin 13.1 g/dL (12.0-16.0); Lymphocytes Percent Auto 6.4 % (25-40); Mean Corpuscular HGB Conc 32.4 % (30-36); Mean Corpuscular Hemoglobin 28.5 PG (26-34); Monocytes Percent Auto 6.2 % (3-14); Neutrophils Absolute Auto 17600 /uL (3000-5900); Neutrophils Percent Auto 86.4 % (50-75); Platelet Count 222 X10^3/uL (150-400); Red Blood Cell Count 4.59 X10^6/uL (4.0-5.2); Red Cell Distribution Width 16.1 % (11.6-14.8); White Blood Cell Count 20.4 X10^3/uL (4.5-11.0)
[2018-01-18 17:10] LABS: Prothrombin Time 35.7 SECONDS (10.1-12.7)
[2018-01-18 17:15] LABS: Alanine Aminotransferase 20 IU/L (9-52); Albumin 4.2 g/dL (3.5-5.0); Albumin Globulin Ratio 1.1 (1.0-2.8); Alkaline Phosphatase 127 U/L (38-126); Aspartate Aminotransferase 23 IU/L (14-36); Bilirubin Total 1.1 mg/dL (0.2-1.3); Blood Urea Nitrogen 14 mg/dL (7-17); Calcium 8.8 mg/dL (8.4-10.2); Carbon Dioxide 30 mmol/L (22-32); Chloride 98 mmol/L (98-107); Creatine Kinase < 20 U/L (30-135); Estimated Glomerular Filt Rate > 60.0 mL/min (>60); Globulin 3.8 g/dL (1.7-4.1); Glucose 129 mg/dL (80-110); HEMOLYSIS < 15 (0-50); Lipase 26 U/L (23-300); Potassium 4.2 mmol/L (3.4-5.1); Sodium 140 mmol/L (137-145)
[2018-01-18 17:26] LABS: Troponin I < 0.012 ng/mL (0.01-0.034)
[2018-01-18 19:02] LABS: RBC Urine None Seen (0-5/HPF)
[2018-01-18 19:12] LABS: Bacteria Urine Many (>30); Culture Indicated Urine Cult Not Indicated; Squamous Epithelial Cell Urine 10-30 /HPF; WBC Urine 10-30/HPF (0-5/HPF)
--- NOTE | 2018-01-18 19:43 | DI.CT.S_ITS ---
PROCEDURE: CT LUMBAR SPINE WO CON INDICATIONS: pain lumbar region after ground level fall TECHNIQUE: Noncontrast 3 mm thick sections acquired from the T12 level to the sacrum. Sagittal and coronal reformats were constructed. For radiation dose reduction, the following was used: automated exposure control. COMPARISON: [facility], , L-SPINE WITHOUT CONTRAST, 05/17/2017, 13:34. FINDINGS: Image quality: Excellent. Bones: There is exaggerated lordosis of lumbar spine. Severe wedge compression deformities are present at L1 and L2 and a moderate wedge compression deformity is present at L3. There is depression of the superior L5 endplate. Although these findings are similar to the MRI of the lumbar spine dated 05/17/17. Patient is status post L1, L2, and L3 vertebroplasty. Patient is status post posterior fixation and discectomy at L4-5. Hardware appears intact. No acute fracture or dislocation. No new wedge compression deformity. No paraspinous hematomas. Dense atheromatous calcifications are present throughout the visualized portions of the abdominal aorta. Visualized portions of the bowel demonstrate normal caliber and wall thickness. No retroperitoneal masses or hematoma. IMPRESSION: 1. Severe compression deformities and postsurgical changes similar to the MRI of the lumbar spine dated 05/17/17. No findings to suggest new acute compression deformity or fracture. Dictated by: Maria G Downey M.D. on 01/18/2018 at 20:31 Approved by: Maria G Downey M.D. on 01/18/2018 at 20:36
[2018-01-18] MEDS: levoFLOXacin 750 MG/150 ML PIGGYBACK 100 MG IV (19:46)
[2018-01-18] MEDS: FUROSEMIDE 40 MG/4 ML VIAL IV (19:53)
[2018-01-18 21:20] LABS: Lactate (Lactic Acid) 1.4 mmol/L (0.7-2.1)
--- NOTE | 2018-01-18 22:39 | PC.NURSE ---
Pt to room 224 from E.R. awake, alert and conversant. Slider board from stretcher to bed. Hard of hearing without aids. 02 3L nc sats 94%. Crackles posterior fierro BL. Hospitalist ROOF BOLTER in to see patient. Pt does not admit to pain, states has fentanyl patch in place. BL calf scd's placed and jackson emptied by E.R. R.N. of 1000 cc's urine upon arrival to room 224.
--- NOTE | 2018-01-18 22:50 | PM.HP.1 ---
History of Present Illness Date Patient Seen: 01/18/18 Time Patient Seen: 22:30 Chief complaint: generalized weakness, fall one wk ago on thinners Narrative: The patient is an 82-year-old female with PMH of AFIB (AC w/ coumadin), HF, LUIS (on CPAP), chronic pain (h/o spinal stenosis and osteoarthritis), and opioid dependence. Patient presented to the ED on 01/18/2018 complaining of dyspnea. Specifically, patient notes I couldn't breathe. Symptom onset is acute and progressively worsening, initially noted 2 days ago. Associated symptoms include cough with purulence (w/ mild hemoptysis), generalized weakness, and loss of appetite. Denies fever/chills, chest pain, pleurisy, palpitations, peripheral edema, abdominal pain, gastrointestinal distress, dysuria, suprapubic tenderness, malaise, and myalgias. Denies hematemesis, hematuria, melena and hematochezia. Patient is known to have congestive heart failure with daily use of a diuretic. Patient notes to have missed several doses of the diuretic in the past week. Reports weighing herself daily, however reports weight loss of 3-4 lbs in the past few days. Notes baseline weight to be 180lbs. Presented today w/ weight of 175.6 lbs. No known history of tobacco abuse / dependence, asthma, or COPD. Patient reports experiencing a ground level fall while standing upright 1 week ago. Notes falling backwards and hitting occipital aspect of head and right upper aspect of the arm and forearm. Chronically anticoagulated w/ coumadin. Denies loss of consciousness. Prior to the event she has not experienced dizziness, lightheadedness, or palpitations. Patient states that her legs gave out. Typically uses walker for ambulation. In the past several days has required use of a wheelchair on occasion. ED Work-Up WBC 20.4 Hgb 13.1 Plt 222 INR 3.0 Na 140 K 4.2 Cl 98 CO2 30 Ca 8.8 Glu 129 Alb 4.2 BUN 14 sCr 0.7 GFR > 60 BUN/Cr ratio 20 T. Bili 1.1 AST 23 ALT 20 Alk Phos 127 Lipase 26 CK < 20 Trop < 0.012 TNP 552 Urine WBC 10-30, Urine Bacteria (many, > 30) CT of lumbar spine and revealed no new findings to suggest acute compression deformity or fracture. XR bilat pelvis / hips was unremarkable for fractures or dislocations. Heat CT unremarkable for an acute intracranial process. Received furosemide 40 mg IV x1 and levofloxacin 750 mg x1 Patient History Medical History Obstructive sleep apnea of adult (Chronic ~2004) Snoring (Chronic ~2004) Chronic a-fib (Acute) Surgical History History of cataract removal with insertion of prosthetic lens History of cataract removal with insertion of prosthetic lens History of knee replacement History of thyroidectomy Status post appendectomy Status post breast reduction Status post colonoscopy Status post hysterectomy Family & Social History Family History: Reviewed 01/19/18 by GADIEL Morales Social History: household members spouse Prior Living Arrangements House lives independently Yes Safety & Behavioral: Feels Safe in Current Yes Environment Been Physically Hurt or No Threatened By a Person Suicidal Ideation Description None Tobacco & Substance use: Smoking Status Never smoker alcohol intake current alcohol intake frequency holiday/special occasion Substance Use Type does not use Meds Home Medications Medication Instructions Recorded Confirmed Type duloxetine 60 mg PO BID #0 03/13/16 01/18/18 History ondansetron HCl 4 mg PO PRN PRN #0 03/13/16 01/18/18 History oxycodone 5 mg PO Q6H PRN #0 03/13/16 01/18/18 History sennosides [senna] 1 tab PO BID #0 03/13/16 01/18/18 History cetirizine 10 mg PO DAILY #0 11/02/16 01/18/18 History cyanocobalamin (vitamin B-12) 1,000 mcg PO QPM #0 11/02/16 01/18/18 History fentanyl 1 patch TOPICAL Q72H #0 12/26/16 01/18/18 History latanoprost 1 drp OPHTH BEDTIME #0 02/03/17 01/18/18 History warfarin 5 mg tablet 5 mg PO QMWF 11/15/17 01/18/18 History clobetasol 0.05 % topical ointment 1 applictn TOPICAL .COMPLEX #30 12/17/17 01/18/18 Rx gram Vitamin D3 50 mcg PO DAILY 01/18/18 01/18/18 History acetaminophen 500 mg PO PRN PRN 01/18/18 01/18/18 History cannabidiol (CBD) extract 50 mg MISCELLANEOUS PRN PRN 01/18/18 01/18/18 History diltiazem HCl [Cartia XT] 180 mg PO BID 01/18/18 01/18/18 History docusate calcium 240 mg PO QPM 01/18/18 01/18/18 History lidocaine 1 patch TOPICAL PRN PRN 01/18/18 01/18/18 History metoprolol succinate 100 mg PO DAILY 01/18/18 01/18/18 History pantoprazole 40 mg PO BID 01/18/18 01/18/18 History polyethylene glycol 3350 [Miralax] 17 gm PO PRN PRN 01/18/18 01/18/18 History potassium chloride 20 meq PO DAILY 01/18/18 01/18/18 History timolol maleate 1 drp EYE-BOTH BID 01/18/18 01/18/18 History torsemide 20 mg PO DAILY 01/18/18 01/18/18 History warfarin 2.5 mg PO SUTUTHSA 01/18/18 01/18/18 History Allergies Allergy/AdvReac Type Severity Reaction Status Date / Time Penicillins [PENICILLINS] Allergy Severe RASH/SWELLI Verified 09/07/17 10:08 NG sulfite [SULFITE] Allergy Severe GI UPSET Verified 09/07/17 10:08 gabapentin [GABAPENTIN] AdvReac Unknown LOW BP, Verified 09/07/17 10:08 CONFUSION pregabalin [From LYRICA] AdvReac Unknown LOW BP, Verified 09/07/17 10:08 CONFUSION Review of Systems Review of Systems All systems reviewed & are unremarkable except as noted in HPI and below Exam Vital Signs (past 8 hours): - 01/18/18 16:49 01/18/18 17:03 01/18/18 17:30 Temperature 99.3 F Pulse Rate 98 H 106 H 98 H Respiratory Rate 36 H 33 H 26 H Blood Pressure 133/81 Blood Pressure [Right Arm] 105/67 118/81 Pulse Oximetry 87 L 96 96 01/18/18 18:00 01/18/18 18:30 01/18/18 19:00 Temperature Pulse Rate 98 H 82 81 Respiratory Rate 26 H 24 24 Blood Pressure Blood Pressure [Right Arm] 118/72 111/58 L 114/69 Pulse Oximetry 98 97 97 01/18/18 19:30 01/18/18 20:00 01/18/18 20:30 Temperature Pulse Rate 93 H 86 88 Respiratory Rate 21 13 24 Blood Pressure Blood Pressure [Right Arm] 107/60 113/70 Pulse Oximetry 96 96 95 01/18/18 21:00 01/18/18 21:32 01/18/18 21:54 Temperature Pulse Rate 92 H 82 Respiratory Rate 29 H 24 Blood Pressure 109/58 L Blood Pressure [Right Arm] 115/68 Pulse Oximetry 96 96 94 01/18/18 22:44 Temperature 98.2 F Pulse Rate 92 H Respiratory Rate 20 Blood Pressure 107/64 Blood Pressure [Right Arm] Pulse Oximetry 94 Oxygen Delivery Method Nasal Cannula Oxygen Flow Rate 3 Narrative Exam Narrative: Constitutional: NAD Neurologic: AOx3, poor recall of recent and remote events, no focal neurological deficits Head: NC, AT Eyes: Pupils equal and reactive, EOMI Ears: external ears normal, no otorrhea Nose: external nose normal, no rhinorrhea or epistaxis Throat: dry MM, oropharynx w/o exudate Neck: no masses, lymphadenopathy, or JVD Chest / Respiratory: diminished, expiratory wheeze, crackles bilaterally, on O2, no dyspnea or tachypnea at rest Heart / CV: S1S2, no murmur Abdomen / GI: round, NT, ND, + BS, no organomegaly : no suprapubic tenderness, Jackson cath present Peripheral / Vascular: cool to touch, DP and PT pulses palpable (1+), no edema, sensation intact Musc: full ROM of upper and lower extremities, adequate muscle tone and bulk Skin: no ecchymosis or suspicious lesions / ulcers Objective Labs Result Diagrams: 01/18/18 16:57 01/18/18 16:57 Labs: Laboratory Results - last 24 hr 01/18/18 01/18/18 01/18/18 16:46 16:57 16:57 WBC 20.4 H RBC 4.59 Hgb 13.1 Hct 40.4 MCV 88.0 MCH 28.5 MCHC 32.4 RDW 16.1 H Plt Count 222 Neut % (Auto) 86.4 H Lymph % (Auto) 6.4 L Briscoe % (Auto) 6.2 Eos % (Auto) 0.4 L Baso % (Auto) 0.6 Neut # (Auto) 16524 H PT INR Sodium 140 Potassium 4.2 Chloride 98 Carbon Dioxide 30 BUN 14 Creatinine 0.70 Estimated GFR > 60.0 BUN/Creatinine Ratio 20.0 Glucose 129 H Lactate Calcium 8.8 Total Bilirubin 1.1 AST 23 ALT 20 Alkaline Phosphatase 127 H Total Creatine Kinase < 20 L CK-MB (CK-2) TNP CK-MB (CK-2) Rel Index TNP Troponin I < 0.012 B-Natriuretic Peptide 552.0 H Total Protein 8.0 Albumin 4.2 Globulin 3.8 Albumin/Globulin Ratio 1.1 Lipase 26 Urine RBC Urine WBC Ur Squamous Epith Cells Urine Bacteria Ur Culture Indicated? Micro UA Comment 01/18/18 01/18/18 01/18/18 16:57 19:01 Unknown WBC RBC Hgb Hct MCV MCH MCHC RDW Plt Count Neut % (Auto) Lymph % (Auto) Briscoe % (Auto) Eos % (Auto) Baso % (Auto) Neut # (Auto) PT 35.7 H INR 3.0 H Sodium Potassium Chloride Carbon Dioxide BUN Creatinine Estimated GFR BUN/Creatinine Ratio Glucose Lactate 1.4 Calcium Total Bilirubin AST ALT Alkaline Phosphatase Total Creatine Kinase CK-MB (CK-2) CK-MB (CK-2) Rel Index Troponin I B-Natriuretic Peptide Total Protein Albumin Globulin Albumin/Globulin Ratio Lipase Urine RBC None seen Urine WBC 10-30/hpf H Ur Squamous Epith Cells 10-30 /hpf H Urine Bacteria Many (>30) H Ur Culture Indicated? Cult not indicated Micro UA Comment Not Reportable Assessment & Plan Plan: Assessment/Plan Narrative: Dyspnea acute heart failure vs pneumonia vs bronchiolitis vs restrictive lung disease CXR: perihilar interstitial opacities suggesting fluid overload. Cardiomegaly present. BNP 560, which is consistent w/ patient's baseline. Missed 2-3 doses of Torsemide (20 mg QD) in the past week. No orthopnea or peripheral edema. No clinical s/s of volume excess on exam. + crackles bilaterally, expiratory wheeze, and hypoxia. - Bumex 0.5 mg IV Q8H x24-48 hours, then re-evaluate and transition to home dose of PO torsemide - Daily weight, I/O, trend renal fx - Renal panel, Mg in am - Duoneb Q6H scheduled, supplemental O2, PEP-flutter valve - D/C IVF - Viral resipratory panel, Flu A/B, sputum cx Leukocytosis, WBC 20.4 Potentially reactive. No s/s of hemodynamic decompensation or sepsis. - Blood, sputum, and urine cx pending Generalized weakness - treat acute underlying condition - PT eval and treat Abnormal urinalysis Partial sample, concern for contamination Unclear why patient had jackson catheter placed in ED. Asymptomatic for s/s of UTI. - Urinalysis w/ cx and sensitvity, if indicated - Received a dose of levofloxacin in ED. Given asymtomatic state, will hold off on further antimicrobial tx, unless repeat UA is indicative of a UTI Hemoptysis Subjectively reported, no episodes while in the hospital. Hgb and Plt stable. - Monitor Chronic AFIB, controlled ventricular rate - resume FISHING GUIDE regimen of metoprolol and diltiazem for rate control and coumadin for anticoagulation Chronic anticoagulation w/ coumadin, h/o AFIB, INR 3.0, therapeutic - daily PT/INR, goal 2-3 Ground level fall Imaging of head, lumbar spine, and pelvis w/o acute findings. LUIS Recently f/u outpatient and had settings adjusted. Reports adherence at home. - continue CPAP Chronic pain Multifactorial... OA and h/o multiple spinal surgeries - Resume FISHING GUIDE fentanyl patch and duloxetine - Tylenol 1000 mg Q8h prn - Hold oxycodone for now Partial code, does not wish to have chest compressions; however, wishes to have ventilatory support if need arises. Patient reports having health directive. is the designated DPOA. Quality VTE Deep Vein Thrombosis/Pulmonary Embolism Present on Admission: No
[2018-01-18 22:55] LABS: Appearance Urine UA CLEAR; Bilirubin Urine UA NEGATIVE (NEGATIVE); Color Urine UA YELLOW; Glucose Urine UA NEGATIVE (Normal); Ketones Urine UA NEGATIVE (NEGATIVE); Leukocyte Esterase Urine UA TRACE (NEGATIVE); Nitrite Urine UA POSITIVE (Negative); Occult Blood Urine UA 3+ (Negative); Protein Urine UA NEGATIVE (Negative); Urobilinogen Urine UA 0.2 E.U./dL (0.2)
[2018-01-18 23:04] LABS: RBC Urine 0-1/HPF (0-5/HPF)
[2018-01-18 23:05] LABS: Bacteria Urine Moderate (10-30); Culture Indicated Urine Specimen Cultured; WBC Urine 0-1/HPF (0-5/HPF)
--- NOTE | 2018-01-18 23:06 | P.HP_ITS ---
History of Present Illness Date Patient Seen: 01/18/18 Time Patient Seen: 22:30 Chief complaint: generalized weakness, fall one wk ago on thinners Narrative: The patient is an 82-year-old female with PMH of AFIB (AC w / coumadin), HF, LUIS (on CPAP), chronic pain (h/o spinal stenosis and osteoarthritis), and opioid dependence. Patient presented to the ED on 01/18/2018 complaining of dyspnea. Specifically , patient notes I couldn't breathe. Symptom onset is acute and progressively worsening, initially noted 2 days ago. Associated symptoms include cough with purulence (w/ mild hemoptysis), generalized weakness, and loss of appetite. Denies fever/chills, chest pain, pleurisy, palpitations, peripheral edema, abdominal pain, gastrointestinal distress, dysuria, suprapubic tenderness, malaise, and myalgias. Denies hematemesis, hematuria, melena and hematochezia. Patient is known to have congestive heart failure with daily use of a diuretic. Patient notes to have missed several doses of the diuretic in the past week. Reports weighing herself daily, however reports weight loss of 3-4 lbs in the past few days. Notes baseline weight to be 180lbs. Presented today w/ weight of 175.6 lbs. No known history of tobacco abuse / dependence, asthma, or COPD. Patient reports experiencing a ground level fall while standing upright 1 week ago. Notes falling backwards and hitting occipital aspect of head and right upper aspect of the arm and forearm. Chronically anticoagulated w/ coumadin. Denies loss of consciousness. Prior to the event she has not experienced dizziness, lightheadedness, or palpitations. Patient states that her legs gave out. Typically uses walker for ambulation. In the past several days has required use of a wheelchair on occasion. ED Work-Up WBC 20.4 Hgb 13.1 Plt 222 INR 3.0 Na 140 K 4.2 Cl 98 CO2 30 Ca 8.8 Glu 129 Alb 4.2 BUN 14 sCr 0.7 GFR > 60 BUN/Cr ratio 20 T. Bili 1.1 AST 23 ALT 20 Alk Phos 127 Lipase 26 CK < 20 Trop < 0.012 TNP 552 Urine WBC 10-30, Urine Bacteria (many, > 30) CT of lumbar spine and revealed no new findings to suggest acute compression deformity or fracture. XR bilat pelvis / hips was unremarkable for fractures or dislocations. Heat CT unremarkable for an acute intracranial process. Received furosemide 40 mg IV x1 and levofloxacin 750 mg x1 Patient History Medical History Obstructive sleep apnea of adult (Chronic ~2004) Snoring (Chronic ~2004) Chronic a-fib (Acute) Surgical History History of cataract removal with insertion of prosthetic lens History of cataract removal with insertion of prosthetic lens History of knee replacement History of thyroidectomy Status post appendectomy Status post breast reduction Status post colonoscopy Status post hysterectomy Family & Social History Family History: Reviewed 01/19/18 by GADIEL Morales Social History: household members spouse Prior Living Arrangements House lives independently Yes Safety & Behavioral: Feels Safe in Current Yes Environment Been Physically Hurt or No Threatened By a Person Suicidal Ideation Description None Tobacco & Substance use: Smoking Status Never smoker alcohol intake current alcohol intake frequency holiday/special occasion Substance Use Type does not use Meds Home Medications Medication Instructions Recorded Confirmed Type duloxetine 60 mg PO BID #0 03/13/16 01/18/18 History ondansetron HCl 4 mg PO PRN PRN #0 03/13/16 01/18/18 History oxycodone 5 mg PO Q6H PRN #0 03/13/16 01/18/18 History sennosides [senna] 1 tab PO BID #0 03/13/16 01/18/18 History cetirizine 10 mg PO DAILY #0 11/02/16 01/18/18 History cyanocobalamin (vitamin B-12) 1,000 mcg PO QPM #0 11/02/16 01/18/18 History fentanyl 1 patch TOPICAL Q72H #0 12/26/16 01/18/18 History latanoprost 1 drp OPHTH BEDTIME #0 02/03/17 01/18/18 History warfarin 5 mg tablet 5 mg PO QMWF 11/15/17 01/18/18 History clobetasol 0.05 % topical ointment 1 applictn TOPICAL .COMPLEX #30 12/17/1708/29 Rx gram Vitamin D3 50 mcg PO DAILY 01/18/18 01/18/18 History acetaminophen 500 mg PO PRN PRN 01/18/18 01/18/18 History cannabidiol (CBD) extract 50 mg MISCELLANEOUS PRN PRN 01/18/18 01/18/18 History diltiazem HCl [Cartia XT] 180 mg PO BID 01/18/18 01/18/18 History docusate calcium 240 mg PO QPM 01/18/18 01/18/18 History lidocaine 1 patch TOPICAL PRN PRN 01/18/18 01/18/18 History metoprolol succinate 100 mg PO DAILY 01/18/18 01/18/18 History pantoprazole 40 mg PO BID 01/18/18 01/18/18 History polyethylene glycol 3350 [Miralax] 17 gm PO PRN PRN 01/18/18 01/18/18 History potassium chloride 20 meq PO DAILY 01/18/18 01/18/18 History timolol maleate 1 drp EYE-BOTH BID 01/18/18 01/18/18 History torsemide 20 mg PO DAILY 01/18/18 01/18/18 History warfarin 2.5 mg PO SUTUTHSA 01/18/18 01/18/18 History Allergies Allergy/AdvReac Type Severity Reaction Status Date / Time Penicillins [PENICILLINS] Allergy Severe RASH/SWELLI Verified 09/07/17 10:08 NG sulfite [SULFITE] Allergy Severe GI UPSET Verified 09/07/17 10:08 gabapentin [GABAPENTIN] AdvReac Unknown LOW BP, Verified 09/07/17 10:08 CONFUSION pregabalin [From LYRICA] AdvReac Unknown LOW BP, Verified 09/07/17 10:08 CONFUSION Review of Systems Review of Systems All systems reviewed & are unremarkable except as noted in HPI and below Exam Vital Signs (past 8 hours): - 01/18/18 16:49 01/18/18 17:03 01/18/18 17:30 Temperature 99.3 F Pulse Rate 98 H 106 H 98 H Respiratory Rate 36 H 33 H 26 H Blood Pressure 133/81 Blood Pressure [Right Arm] 105/67 118/81 Pulse Oximetry 87 L 96 96 01/18/18 18:00 01/18/18 18:30 01/18/18 19:00 Temperature Pulse Rate 98 H 82 81 Respiratory Rate 26 H 24 24 Blood Pressure Blood Pressure [Right Arm] 118/72 111/58 L 114/69 Pulse Oximetry 98 97 97 01/18/18 19:30 01/18/18 20:00 01/18/18 20:30 Temperature Pulse Rate 93 H 86 88 Respiratory Rate 21 13 24 Blood Pressure Blood Pressure [Right Arm] 107/60 113/70 Pulse Oximetry 96 96 95 01/18/18 21:00 01/18/18 21:32 01/18/18 21:54 Temperature Pulse Rate 92 H 82 Respiratory Rate 29 H 24 Blood Pressure 109/58 L Blood Pressure [Right Arm] 115/68 Pulse Oximetry 96 96 94 01/18/18 22:44 Temperature 98.2 F Pulse Rate 92 H Respiratory Rate 20 Blood Pressure 107/64 Blood Pressure [Right Arm] Pulse Oximetry 94 Oxygen Delivery Method Nasal Cannula Oxygen Flow Rate 3 Narrative Exam Narrative: Constitutional: NAD Neurologic: AOx3, poor recall of recent and remote events, no focal neurological deficits Head: NC, AT Eyes: Pupils equal and reactive, EOMI Ears: external ears normal, no otorrhea Nose: external nose normal, no rhinorrhea or epistaxis Throat: dry MM, oropharynx w/o exudate Neck: no masses, lymphadenopathy, or JVD Chest / Respiratory: diminished, expiratory wheeze, crackles bilaterally, on O2 , no dyspnea or tachypnea at rest Heart / CV: S1S2, no murmur Abdomen / GI: round, NT, ND, + BS, no organomegaly : no suprapubic tenderness, Jackson cath present Peripheral / Vascular: cool to touch, DP and PT pulses palpable (1+), no edema , sensation intact Musc: full ROM of upper and lower extremities, adequate muscle tone and bulk Skin: no ecchymosis or suspicious lesions / ulcers Objective Labs Result Diagrams: 01/18/18 16:57 01/18/18 16:57 Labs: Laboratory Results - last 24 hr 01/18/18 01/18/18 01/18/18 16:46 16:57 16:57 WBC 20.4 H RBC 4.59 Hgb 13.1 Hct 40.4 MCV 88.0 MCH 28.5 MCHC 32.4 RDW 16.1 H Plt Count 222 Neut % (Auto) 86.4 H Lymph % (Auto) 6.4 L [place] % (Auto) 6.2 Eos % (Auto) 0.4 L Baso % (Auto) 0.6 Neut # (Auto) 99763 H PT INR Sodium 140 Potassium 4.2 Chloride 98 Carbon Dioxide 30 BUN 14 Creatinine 0.70 Estimated GFR > 60.0 BUN/Creatinine Ratio 20.0 Glucose 129 H Lactate Calcium 8.8 Total Bilirubin 1.1 AST 23 ALT 20 Alkaline Phosphatase 127 H Total Creatine Kinase < 20 L CK-MB (CK-2) TNP CK-MB (CK-2) Rel Index TNP Troponin I < 0.012 B-Natriuretic Peptide 552.0 H Total Protein 8.0 Albumin 4.2 Globulin 3.8 Albumin/Globulin Ratio 1.1 Lipase 26 Urine RBC Urine WBC Ur Squamous Epith Cells Urine Bacteria Ur Culture Indicated? Micro UA Comment 01/18/18 01/18/18 01/18/18 16:57 19:01 Unknown WBC RBC Hgb Hct MCV MCH MCHC RDW Plt Count Neut % (Auto) Lymph % (Auto) [place] % (Auto) Eos % (Auto) Baso % (Auto) Neut # (Auto) PT 35.7 H INR 3.0 H Sodium Potassium Chloride Carbon Dioxide BUN Creatinine Estimated GFR BUN/Creatinine Ratio Glucose Lactate 1.4 Calcium Total Bilirubin AST ALT Alkaline Phosphatase Total Creatine Kinase CK-MB (CK-2) CK-MB (CK-2) Rel Index Troponin I B-Natriuretic Peptide Total Protein Albumin Globulin Albumin/Globulin Ratio Lipase Urine RBC None seen Urine WBC 10-30/hpf H Ur Squamous Epith Cells 10-30 /hpf H Urine Bacteria Many (>30) H Ur Culture Indicated? Cult not indicated Micro UA Comment Not Reportable Assessment & Plan Plan: Assessment/Plan Narrative: Dyspnea acute heart failure vs pneumonia vs bronchiolitis vs restrictive lung disease CXR: perihilar interstitial opacities suggesting fluid overload. Cardiomegaly present. BNP 560, which is consistent w/ patient's baseline. Missed 2-3 doses of Torsemide (20 mg QD) in the past week. No orthopnea or peripheral edema. No clinical s/s of volume excess on exam. + crackles bilaterally, expiratory wheeze, and hypoxia. - Bumex 0.5 mg IV Q8H x24-48 hours, then re-evaluate and transition to home dose of PO torsemide - Daily weight, I/O, trend renal fx - Renal panel, Mg in am - Duoneb Q6H scheduled, supplemental O2, PEP-flutter valve - D/C IVF - Viral resipratory panel, Flu A/B, sputum cx Leukocytosis, WBC 20.4 Potentially reactive. No s/s of hemodynamic decompensation or sepsis. - Blood, sputum, and urine cx pending Generalized weakness - treat acute underlying condition - PT eval and treat Abnormal urinalysis Partial sample, concern for contamination Unclear why patient had jackson catheter placed in ED. Asymptomatic for s/s of UTI. - Urinalysis w/ cx and sensitvity, if indicated - Received a dose of levofloxacin in ED. Given asymtomatic state, will hold off on further antimicrobial tx, unless repeat UA is indicative of a UTI Hemoptysis Subjectively reported, no episodes while in the hospital. Hgb and Plt stable. - Monitor Chronic AFIB, controlled ventricular rate - resume [employer]INE[employer] regimen of metoprolol and diltiazem for rate control and coumadin for anticoagulation Chronic anticoagulation w/ coumadin, h/o AFIB, INR 3.0, therapeutic - daily PT/INR, goal 2-3 Ground level fall Imaging of head, lumbar spine, and pelvis w/o acute findings. LUIS Recently f/u outpatient and had settings adjusted. Reports adherence at home. - continue CPAP Chronic pain Multifactorial... 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 Patient reports having health directive. is the designated DPOA. Quality VTE Deep Vein Thrombosis/Pulmonary Embolism Present on Admission: No
[2018-01-19] VITALS (15 sets, daily range): BP systolic 100–136; BP diastolic 53–82; PULSE 76–97; RESP 16–24; TEMP 36.3–36.9; O2SAT 88–96
--- NOTE | 2018-01-19 | DI.ECHO.S_ITS ---
[facility] +---------+ : : [address] : [place] : : : : [id number] : : : : Phone: [phone]+ Echocardiogram Report + + :Name: NUNO MCKENZIE Study Date: 01/19/2018 Height: 66 in : :[facility] Exam Location: [facility] Weight: 175 lb : : Gender: Female BSA: 1.9 m2 : :: 1935 Age: 82 yrs BP: 107/62 mmHg: :Reason For Study: LYNCH : : Performed By: Rm Chicas : :Referring: AMRITA PHILLIPS : + + Interpretation Summary Afib with controlled rate. Normal LV size, wall thickness; there is flattened septum consistent with RV pressure overload; normal wall motion otherwise. EF is 60-65%. There is moderately dilated RV with mildly reduced RV function. Pt has severe central tricuspid regurgitation with leaflet non-coaptation; estimnated PA systolic pressure is 35 mm Hg assuming RA pressure of 15 mm Hg. Otherwise no significant valvular abnormalities. Compared to prior study 09/25/2017 no significant changes have occurred. Procedure: A two-dimensional transthoracic echocardiogram with color flow and Doppler was performed. The study quality was technically adequate. Comparison is made with the echocardiogram of 03/29/17. The patient was in atrial fibrillation with controlled ventricular rate during the exam. The patient had a heart rate of 75-93 beats per minute. Left Ventricle: The left ventricle is normal in size. There is normal left ventricular wall thickness. The ejection fraction is estimated to be 60-65%. There are no focal wall motion abnormalities. Flattened septum is consistent with RV pressure overload. Right Ventricle: The right ventricle is moderately dilated. Right ventricular systolic function is mildly reduced. Atria: The left atrium is moderately dilated. The right atrium is severely dilated. The interatrial septum is intact with no evidence for an atrial septal defect. Mitral Valve: The mitral valve leaflets are mildly calcified. There is moderate mitral annular calcification. There is moderate mitral regurgitation. Aortic Valve: The aortic valve is trileaflet. The aortic valve is mildly calcified. There is no hemodynamically significant valvular aortic stenosis. There is trace aortic regurgitation. Tricuspid Valve: The tricuspid leaflets do not coapt. There is severe tricuspid regurgitation. The right ventricular systolic pressure is estimated to be at least 33 mmHg based on an estimated right atrial pressure of 15 mm Hg. Pulmonic Valve: The pulmonic valve is normal in structure and function. There is trace pulmonic regurgitation. Great Vessels: The aortic root is normal size. The dimensions of the ascending aorta are normal. The pulmonary artery is normal size. The IVC is dilated (diameter is greater than 2.1 cm) and it collapses less than 50% with a sniff. This suggests a high right atrial pressure of 15 mm Hg. Pericardium/ Pleura There is no pericardial effusion. There is no pleural effusion. MMode/2D Measurements & Calculations LVIDd: 4.2 cm LVOT diam: 2.0 cm LVIDs: 2.8 cm Ao root diam: 3.3 cm FS: 31.9 % Aortic Jxn: 2.3 cm EPSS: 0.72 cm asc Aorta Diam: 3.3 cm IVSd: 0.68 cm Ao Arch Diam (Prox Trans): 2.3 cm LVPWd: 0.62 cm LV gardner. diameter/BSA (cm/m^2): 2.2 LV sys. diameter/BSA (cm/m^2): 1.5 LA dimension: 4.1 cm RA long axis: 6.2 cm LA A2 area: 25.1 cm2 RA area: 30.2 cm2 LA A4 area: 27.8 cm2 RA vol: 124.1 ml LA length (vol): 6.7 cm RA : 65.7 ml/m2 LA vol: 88.5 ml IVC diam: 2.7 cm LA vol index: 46.8 ml/m2 RVD1 (basal): 5.9 cm RVD2 (mid): 5.1 cm Doppler Measurements & Calculations Ao V2 max: 105.9 cm/sec LVOT Max Larry: 57.5 cm/sec Ao V2 mean: 78.8 cm/sec LV V1 max P.3 mmHg Ao max P.5 mmHg LV V1 VTI: 11.1 cm Ao mean P.7 mmHg ELAINA(I,D): 1.8 cm2 Ao V2 VTI: 19.2 cm ELAINA(V,D): 1.7 cm2 sev ratio: 0.58 ELAINA indexed to BSA (cm^2/m^2): 0.95 MV E max larry: 141.9 cm/sec TR max larry: 214.1 cm/sec MV A max larry: 1.1 cm/sec TR max P.4 mmHg MV E/A: 132.5 PA V2 max: 41.6 cm/sec Med Peak E' Larry: 5.9 cm/sec PA V2 mean: 30.6 cm/sec E/E' med: 24.1 PA mean P.41 mmHg Lat Peak E' Larry: 8.1 cm/sec PA pr(Accel): 19.1 mmHg E/E' lat: 17.5 PA Accel Time: 0.13 sec E/e' average: 20.8 MV dec time: 0.22 sec MVA(VTI): 1.6 cm2 MV V2 mean: 82.9 cm/sec MV mean P.4 mmHg MV V2 VTI: 22.1 cm Reading Physician:06:46 PM
--- NOTE | 2018-01-19 | DI.RAD.S_ITS ---
PROCEDURE: XR CHEST 2V INDICATIONS: exertional dyspnea, cough TECHNIQUE: 2 views of the chest were acquired. COMPARISON: [facility], CR, XR CHEST 1V, 01/18/2018, 16:52. FINDINGS: Surgical changes and devices: None. Lungs and pleura: No pleural effusions or pneumothorax. Increased interstitial lung markings and bilateral hilar region are seen with bronchial wall thickening. Mild pulmonary edema is also seen. Mediastinum: Mediastinal contours are normal. Heart size is enlarged. Bones and chest wall: No suspicious bony abnormalities. Soft tissues appear unremarkable. IMPRESSION: Suggestion of reactive airway disease and possible superimposed interstitial lung parenchymal disease. Cardiomegaly and mild congestion. No definite focal infiltrate. No pleural effusion or pneumothorax. Dictated by: Tyler Daniel M.D. on 01/19/2018 at 9:52 Approved by: Tyler Daniel M.D. on 01/19/2018 at 9:55
[2018-01-19] MEDS: ACETAMINOPHEN 325 MG TABLET 650 MG PO ×2 (00:18→17:04)
[2018-01-19 01:37] LABS: Adenovirus Not Detected (Not Detect); Bordetella pertussis Not Detected (Not Detect); Chlamydophila pneumoniae Not Detected (Not Detect); Coronavirus 229E Not Detected (Not Detect); Coronavirus HKU1 Not Detected (Not Detect); Coronavirus NL 63 Not Detected (Not Detect); Coronavirus OC43 Not Detected (Not Detect); Human Metapneumovirus Not Detected (Not Detect); Human Rhinovirus/Enterovirus Not Detected (Not Detect); Influenza A Not Detected (Not Detect); Influenza B Not Detected (Not Detect); Mycoplasma pneumoniae Not Detected (Not Detect); Parainfluenza Virus 1 Not Detected (Not Detect); Parainfluenza Virus 2 Not Detected (Not Detect); Parainfluenza Virus 3 Not Detected (Not Detect); Parainfluenza Virus 4 Not Detected (Not Detect); Respiratory Syncytial Virus Not Detected (Not Detect)
[2018-01-19 05:52] LABS: Albumin 3.4 g/dL (3.5-5.0); BUN Creatinine Ratio 17.1 (6-22); Blood Urea Nitrogen 12 mg/dL (7-17); Calcium 8.4 mg/dL (8.4-10.2); Carbon Dioxide 29 mmol/L (22-32); Chloride 99 mmol/L (98-107); Estimated Glomerular Filt Rate > 60.0 mL/min (>60); Glucose 90 mg/dL (80-110); HEMOLYSIS < 15 (0-50); Magnesium 1.9 mg/dL (1.6-2.3); Phosphorous 3.6 mg/dL (2.8-4.1); Potassium 3.4 mmol/L (3.4-5.1); Sodium 140 mmol/L (137-145)
[2018-01-19 06:07] LABS: Procalcitonin 0.15 ng/mL (<0.5)
[2018-01-19 06:19] LABS: Add Manual Diff / Slide Review NO; Basophils Percent Auto 0.3 % (0-2); Eosinophils Percent Auto 1.2 % (2-4); Hematocrit 38.2 % (36-46); Lymphocytes Percent Auto 14.7 % (25-40); Mean Corpuscular HGB Conc 31.5 % (30-36); Mean Corpuscular Hemoglobin 27.9 PG (26-34); Mean Corpuscular Volume 88.7 fL (80-100); Monocytes Percent Auto 6.6 % (3-14); Neutrophils Absolute Auto 12300 /uL (3000-5900); Neutrophils Percent Auto 77.2 % (50-75); Platelet Count 181 X10^3/uL (150-400); Red Blood Cell Count 4.31 X10^6/uL (4.0-5.2); Red Cell Distribution Width 15.6 % (11.6-14.8); White Blood Cell Count 15.9 X10^3/uL (4.5-11.0)
[2018-01-19 06:32] LABS: INR 2.9 (0.9-1.3); Prothrombin Time 34.9 SECONDS (10.1-12.7)
[2018-01-19] MEDS: MAGNESIUM SULFATE 2 GM/50 ML PIGGYBACK IV (06:36)
[2018-01-19] MEDS: POTASSIUM CHLORIDE 20 MEQ/15 ML UDC 60 MEQ PO (06:36)
[2018-01-19] MEDS: ONDANSETRON 4 MG/2 ML INJ IV (07:12)
[2018-01-19] MEDS: METOPROLOL ER 50 MG TABLET 100 MG PO (09:15)
[2018-01-19] MEDS: TIMOLOL 0.5% OPHTH 1 DROPS EYE-BOTH ×2 (09:16→21:14)
[2018-01-19] MEDS: dilTIAZem CD 180 MG CAP PO ×2 (09:16→21:14)
[2018-01-19] MEDS: DULOXETINE 30 MG CAPSULE 60 MG PO ×2 (09:18→21:14)
[2018-01-19] MEDS: PANTOPRAZOLE 40 MG TABLET PO ×2 (09:21→21:14)
[2018-01-19] MEDS: fentaNYL 25 MCG/PATCH TOP (09:28)
--- NOTE | 2018-01-19 12:03 | PM.PN.1 ---
Subjective Date Patient Seen: 01/19/18 Time Patient Seen: 11:52 Interval history: FEELING SLEEPY THIS AM NO CHEST PAIN OR CHEST PALPITATIONS NO FEVER OR CHILLS OVERNIGHT STATED FEELING SLIGHTLY BETTER NO OTHER COMPLAINTS Exam Vital Signs (past 8 hours): - 01/19/18 05:00 01/19/18 05:52 01/19/18 07:20 Temperature 97.3 F L 97.5 F L Pulse Rate 76 76 Respiratory Rate 16 16 Blood Pressure 109/54 L 107/62 Pulse Oximetry 96 96 96 01/19/18 09:03 01/19/18 11:10 01/19/18 11:18 Temperature 97.9 F Pulse Rate 79 Respiratory Rate 24 Blood Pressure 124/65 Pulse Oximetry 92 94 96 Oxygen Delivery Method Nasal Cannula Oxygen Flow Rate 2 Narrative Exam Narrative: NO ACUTE DISTRESS. PATIENT IS ALERT ORIENTED X3. HARD OF HEARING; POSS MILD DEMENTIA VITAL SIGNS STABLE HEAD ATRAUMATIC NORMOCEPHALIC NECK : SUPPLE WITHOUT ADENOPATHY EYE: EOMI, PERRLA, NORMAL CONJUNCTIVA CHEST: REGULAR RATE.. NO RUBS. PMI IS NON DISPLACED. NO MURMURS PULMONARY: DECREASED BS OVER THE BASES. MILD BIBASILAR CRACKLES NOTED; NO INCREASED DULLNESS TO PERCUSSION ABDOMEN: SOFT; NON TENDER; BS + IN ALL 4 QUAD EXTREMITIES:NO EDEMA.. NO CYANOSIS OR CLUBBING NOTED. NEURO: CRANIAL NERVES 2-12 GROSSLY INTACT. NO FOCAL NEUROLOGICAL DEFICIT NOTED. MSK: NORMAL RANGE OF MOTION FOR AGE. NO JOINT EFFUSION. SKIN: NORMAL FOR ETHNICITY; NO ECCHYMOSIS. NO LESION. FAIR TURGOR.; NO RASHES : NORMAL EXTERNAL GENITALIA. PSYCH : APPROPRIATE MOOD AND AFFECT. ALERT AWAKE ORIENTED X3 Objective Labs Result Diagrams: 01/19/18 05:12 01/19/18 05:12 Labs: Laboratory Results - last 24 hr 01/18/18 01/18/18 01/18/18 16:46 16:57 16:57 WBC 20.4 H RBC 4.59 Hgb 13.1 Hct 40.4 MCV 88.0 MCH 28.5 MCHC 32.4 RDW 16.1 H Plt Count 222 Neut % (Auto) 86.4 H Lymph % (Auto) 6.4 L [place] % (Auto) 6.2 Eos % (Auto) 0.4 L Baso % (Auto) 0.6 Neut # (Auto) 57924 H PT INR Sodium 140 Potassium 4.2 Chloride 98 Carbon Dioxide 30 BUN 14 Creatinine 0.70 Estimated GFR > 60.0 BUN/Creatinine Ratio 20.0 Glucose 129 H Lactate Calcium 8.8 Phosphorus Magnesium Total Bilirubin 1.1 AST 23 ALT 20 Alkaline Phosphatase 127 H Total Creatine Kinase < 20 L CK-MB (CK-2) TNP CK-MB (CK-2) Rel Index TNP Troponin I < 0.012 B-Natriuretic Peptide 552.0 H Total Protein 8.0 Albumin 4.2 Globulin 3.8 Albumin/Globulin Ratio 1.1 Lipase 26 Procalcitonin Urine Color Urine Appearance Urine pH Ur Specific [place] Urine Protein Urine Glucose (UA) Urine Ketones Urine Occult Blood Urine Nitrate Urine Bilirubin Urine Urobilinogen Ur Leukocyte Esterase Urine RBC Urine WBC Ur Squamous Epith Cells Urine Bacteria Ur Culture Indicated? Micro UA Comment Chlamy pneumoniae PCR Adenovirus (PCR) B.parapertussis DNA PCR Coronavirus OC43 (PCR) Coronavirus HKU1 (PCR) Coronavirus 229E (PCR) Coronavirus NL63 (PCR) Human Metapneumovir PCR Influenza Type A (PCR) Influenza Type B (PCR) M. pneumoniae (PCR) Parainfluenza 1 (PCR) Parainfluenza 2 (PCR) Parainfluenza 3 (PCR) Parainfluenza 4 (PCR) RSV (PCR) Entero/Rhino (PCR) 01/18/18 01/18/18 01/18/18 16:57 19:01 22:40 WBC RBC Hgb Hct MCV MCH MCHC RDW Plt Count Neut % (Auto) Lymph % (Auto) [place] % (Auto) Eos % (Auto) Baso % (Auto) Neut # (Auto) PT 35.7 H INR 3.0 H Sodium Potassium Chloride Carbon Dioxide BUN Creatinine Estimated GFR BUN/Creatinine Ratio Glucose Lactate Calcium Phosphorus Magnesium Total Bilirubin AST ALT Alkaline Phosphatase Total Creatine Kinase CK-MB (CK-2) CK-MB (CK-2) Rel Index Troponin I B-Natriuretic Peptide Total Protein Albumin Globulin Albumin/Globulin Ratio Lipase Procalcitonin Urine Color Yellow Urine Appearance Clear Urine pH 7.0 Ur Specific [place] 1.010 Urine Protein Negative Urine Glucose (UA) Negative Urine Ketones Negative Urine Occult Blood 3+ H Urine Nitrate Positive H Urine Bilirubin Negative Urine Urobilinogen 0.2 Ur Leukocyte Esterase Trace H Urine RBC None seen 0-1/hpf Urine WBC 10-30/hpf H 0-1/hpf D Ur Squamous Epith Cells 10-30 /hpf H Urine Bacteria Many (>30) H Moderate (10-30) H Ur Culture Indicated? Cult not indicated Specimen cultured Micro UA Comment Not Reportable Not Reportable Chlamy pneumoniae PCR Adenovirus (PCR) B.parapertussis DNA PCR Coronavirus OC43 (PCR) Coronavirus HKU1 (PCR) Coronavirus 229E (PCR) Coronavirus NL63 (PCR) Human Metapneumovir PCR Influenza Type A (PCR) Influenza Type B (PCR) M. pneumoniae (PCR) Parainfluenza 1 (PCR) Parainfluenza 2 (PCR) Parainfluenza 3 (PCR) Parainfluenza 4 (PCR) RSV (PCR) Entero/Rhino (PCR) 01/18/18 01/19/18 01/19/18 Unknown 00:10 05:12 WBC RBC Hgb Hct MCV MCH MCHC RDW Plt Count Neut % (Auto) Lymph % (Auto) [place] % (Auto) Eos % (Auto) Baso % (Auto) Neut # (Auto) PT INR Sodium 140 Potassium 3.4 Chloride 99 Carbon Dioxide 29 BUN 12 Creatinine 0.70 Estimated GFR > 60.0 BUN/Creatinine Ratio 17.1 Glucose 90 Lactate 1.4 Calcium 8.4 Phosphorus 3.6 Magnesium 1.9 Total Bilirubin AST ALT Alkaline Phosphatase Total Creatine Kinase CK-MB (CK-2) CK-MB (CK-2) Rel Index Troponin I B-Natriuretic Peptide Total Protein Albumin 3.4 L Globulin Albumin/Globulin Ratio Lipase Procalcitonin Urine Color Urine Appearance Urine pH Ur Specific [place] Urine Protein Urine Glucose (UA) Urine Ketones Urine Occult Blood Urine Nitrate Urine Bilirubin Urine Urobilinogen Ur Leukocyte Esterase Urine RBC Urine WBC Ur Squamous Epith Cells Urine Bacteria Ur Culture Indicated? Micro UA Comment Chlamy pneumoniae PCR Not detected Adenovirus (PCR) Not detected B.parapertussis DNA PCR Not detected Coronavirus OC43 (PCR) Not detected Coronavirus HKU1 (PCR) Not detected Coronavirus 229E (PCR) Not detected Coronavirus NL63 (PCR) Not detected Human Metapneumovir PCR Not detected Influenza Type A (PCR) Not detected Influenza Type B (PCR) Not detected M. pneumoniae (PCR) Not detected Parainfluenza 1 (PCR) Not detected Parainfluenza 2 (PCR) Not detected Parainfluenza 3 (PCR) Not detected Parainfluenza 4 (PCR) Not detected RSV (PCR) Not detected Entero/Rhino (PCR) Not detected 01/19/18 01/19/18 01/19/18 05:12 05:12 06:19 WBC 15.9 H RBC 4.31 Hgb 12.0 Hct 38.2 MCV 88.7 MCH 27.9 MCHC 31.5 RDW 15.6 H Plt Count 181 Neut % (Auto) 77.2 H Lymph % (Auto) 14.7 L [place] % (Auto) 6.6 Eos % (Auto) 1.2 L Baso % (Auto) 0.3 Neut # (Auto) 87184 H PT 34.9 H INR 2.9 H Sodium Potassium Chloride Carbon Dioxide BUN Creatinine Estimated GFR BUN/Creatinine Ratio Glucose Lactate Calcium Phosphorus Magnesium Total Bilirubin AST ALT Alkaline Phosphatase Total Creatine Kinase CK-MB (CK-2) CK-MB (CK-2) Rel Index Troponin I B-Natriuretic Peptide Total Protein Albumin Globulin Albumin/Globulin Ratio Lipase Procalcitonin 0.15 Urine Color Urine Appearance Urine pH Ur Specific [place] Urine Protein Urine Glucose (UA) Urine Ketones Urine Occult Blood Urine Nitrate Urine Bilirubin Urine Urobilinogen Ur Leukocyte Esterase Urine RBC Urine WBC Ur Squamous Epith Cells Urine Bacteria Ur Culture Indicated? Micro UA Comment Chlamy pneumoniae PCR Adenovirus (PCR) B.parapertussis DNA PCR Coronavirus OC43 (PCR) Coronavirus HKU1 (PCR) Coronavirus 229E (PCR) Coronavirus NL63 (PCR) Human Metapneumovir PCR Influenza Type A (PCR) Influenza Type B (PCR) M. pneumoniae (PCR) Parainfluenza 1 (PCR) Parainfluenza 2 (PCR) Parainfluenza 3 (PCR) Parainfluenza 4 (PCR) RSV (PCR) Entero/Rhino (PCR) Assessment & Plan Plan: Assessment/Plan Narrative: IMPRESSION AND PLAN UTI; POA; ORGANISM IS UNCLEAR; NO PRIOR CX NOTED; CONT CURRENT ABX FOR NOW; FOLOW CX AND SENSITIVITY RESULT; ADJUST ABX INDICATED CLINICALLY LEUKOCYTOSIS; LIKELY DUE TO ABOVE; IMPROVED; HOWEVER, ELEVATED WBC NOTED SINCE LATE 2016; ? CAUSE; DAILY CBC; FOLLOW CX COUMADIN COAGULOPATHY; DAILY INR; CONT HOME DOSE; INR GOAR 2-3. OBESITY; OUTPATIENT MANAGEMENT POSS DEMENTIA; APPEARS AT BASELINE; MONITOR FOR NOW; RE-ORIENT INDICATED SOB/LYNCH; APPEARS AT BASELINE; ECHO ORDERED DUE TO CONGESTION NOTED ON CHEST FILM; BUMEX GIVEN; PT/OT; AMBULATE TID; OOB/ IN CHAIR WITH EACH MEAL ULIS; PRN BIPAP WHILE ASLEEP IF INDICATED FALL; STRICT FALL PRECAUTIONS WHILE IN HOUSE; PT/OT CHRONIC A FIB; RATE IS CONTROLLED; RESTART ON HOME MEDS PHYSICAL DECONDITIONING; PTOT; CONSIDER SNF ON DISPOSITION; FALL PRECAUTIONS; OOB/ IN CHAIR WITH EACH MEAL POSS POOR / UNSTEADY GAIT; FALL PRECAUTIONS; PT/OT DC PER CLINICAL COURSE Quality VTE Deep Vein Thrombosis/Pulmonary Embolism Present on Admission: No
--- NOTE | 2018-01-19 12:07 | P.PN_ITS ---
Subjective Date Patient Seen: 01/19/18 Time Patient Seen: 11:52 Interval history: FEELING SLEEPY THIS AM NO CHEST PAIN OR CHEST PALPITATIONS NO FEVER OR CHILLS OVERNIGHT STATED FEELING SLIGHTLY BETTER NO OTHER COMPLAINTS Exam Vital Signs (past 8 hours): - 01/19/18 05:00 01/19/18 05:52 01/19/18 07:20 Temperature 97.3 F L 97.5 F L Pulse Rate 76 76 Respiratory Rate 16 16 Blood Pressure 109/54 L 107/62 Pulse Oximetry 96 96 96 01/19/18 09:03 01/19/18 11:10 01/19/18 11:18 Temperature 97.9 F Pulse Rate 79 Respiratory Rate 24 Blood Pressure 124/65 Pulse Oximetry 92 94 96 Oxygen Delivery Method Nasal Cannula Oxygen Flow Rate 2 Narrative Exam Narrative: NO ACUTE DISTRESS. PATIENT IS ALERT ORIENTED X3. HARD OF HEARING; POSS MILD DEMENTIA VITAL SIGNS STABLE HEAD ATRAUMATIC NORMOCEPHALIC NECK : SUPPLE WITHOUT ADENOPATHY EYE: EOMI, PERRLA, NORMAL CONJUNCTIVA CHEST: REGULAR RATE.. NO RUBS. PMI IS NON DISPLACED. NO MURMURS PULMONARY: DECREASED BS OVER THE BASES. MILD BIBASILAR CRACKLES NOTED; NO INCREASED DULLNESS TO PERCUSSION ABDOMEN: SOFT; NON TENDER; BS + IN ALL 4 QUAD EXTREMITIES:NO EDEMA.. NO CYANOSIS OR CLUBBING NOTED. NEURO: CRANIAL NERVES 2-12 GROSSLY INTACT. NO FOCAL NEUROLOGICAL DEFICIT NOTED. MSK: NORMAL RANGE OF MOTION FOR AGE. NO JOINT EFFUSION. SKIN: NORMAL FOR ETHNICITY; NO ECCHYMOSIS. NO LESION. FAIR TURGOR.; NO RASHES : NORMAL EXTERNAL GENITALIA. PSYCH : APPROPRIATE MOOD AND AFFECT. ALERT AWAKE ORIENTED X3 Objective Labs Result Diagrams: 01/19/18 05:12 01/19/18 05:12 Labs: Laboratory Results - last 24 hr 01/18/18 01/18/18 01/18/18 16:46 16:57 16:57 WBC 20.4 H RBC 4.59 Hgb 13.1 Hct 40.4 MCV 88.0 MCH 28.5 MCHC 32.4 RDW 16.1 H Plt Count 222 Neut % (Auto) 86.4 H Lymph % (Auto) 6.4 L [place] % (Auto) 6.2 Eos % (Auto) 0.4 L Baso % (Auto) 0.6 Neut # (Auto) 18158 H PT INR Sodium 140 Potassium 4.2 Chloride 98 Carbon Dioxide 30 BUN 14 Creatinine 0.70 Estimated GFR > 60.0 BUN/Creatinine Ratio 20.0 Glucose 129 H Lactate Calcium 8.8 Phosphorus Magnesium Total Bilirubin 1.1 AST 23 ALT 20 Alkaline Phosphatase 127 H Total Creatine Kinase < 20 L CK-MB (CK-2) TNP CK-MB (CK-2) Rel Index TNP Troponin I < 0.012 B-Natriuretic Peptide 552.0 H Total Protein 8.0 Albumin 4.2 Globulin 3.8 Albumin/Globulin Ratio 1.1 Lipase 26 Procalcitonin Urine Color Urine Appearance Urine pH Ur Specific [place] Urine Protein Urine Glucose (UA) Urine Ketones Urine Occult Blood Urine Nitrate Urine Bilirubin Urine Urobilinogen Ur Leukocyte Esterase Urine RBC Urine WBC Ur Squamous Epith Cells Urine Bacteria Ur Culture Indicated? Micro UA Comment Chlamy pneumoniae PCR Adenovirus (PCR) B.parapertussis DNA PCR Coronavirus OC43 (PCR) Coronavirus HKU1 (PCR) Coronavirus 229E (PCR) Coronavirus NL63 (PCR) Human Metapneumovir PCR Influenza Type A (PCR) Influenza Type B (PCR) M. pneumoniae (PCR) Parainfluenza 1 (PCR) Parainfluenza 2 (PCR) Parainfluenza 3 (PCR) Parainfluenza 4 (PCR) RSV (PCR) Entero/Rhino (PCR) 01/18/18 01/18/18 01/18/18 16:57 19:01 22:40 WBC RBC Hgb Hct MCV MCH MCHC RDW Plt Count Neut % (Auto) Lymph % (Auto) [place] % (Auto) Eos % (Auto) Baso % (Auto) Neut # (Auto) PT 35.7 H INR 3.0 H Sodium Potassium Chloride Carbon Dioxide BUN Creatinine Estimated GFR BUN/Creatinine Ratio Glucose Lactate Calcium Phosphorus Magnesium Total Bilirubin AST ALT Alkaline Phosphatase Total Creatine Kinase CK-MB (CK-2) CK-MB (CK-2) Rel Index Troponin I B-Natriuretic Peptide Total Protein Albumin Globulin Albumin/Globulin Ratio Lipase Procalcitonin Urine Color Yellow Urine Appearance Clear Urine pH 7.0 Ur Specific [place] 1.010 Urine Protein Negative Urine Glucose (UA) Negative Urine Ketones Negative Urine Occult Blood 3+ H Urine Nitrate Positive H Urine Bilirubin Negative Urine Urobilinogen 0.2 Ur Leukocyte Esterase Trace H Urine RBC None seen 0-1/hpf Urine WBC 10-30/hpf H 0-1/hpf D Ur Squamous Epith Cells 10-30 /hpf H Urine Bacteria Many (>30) H Moderate (10-30) H Ur Culture Indicated? Cult not indicated Specimen cultured Micro UA Comment Not Reportable Not Reportable Chlamy pneumoniae PCR Adenovirus (PCR) B.parapertussis DNA PCR Coronavirus OC43 (PCR) Coronavirus HKU1 (PCR) Coronavirus 229E (PCR) Coronavirus NL63 (PCR) Human Metapneumovir PCR Influenza Type A (PCR) Influenza Type B (PCR) M. pneumoniae (PCR) Parainfluenza 1 (PCR) Parainfluenza 2 (PCR) Parainfluenza 3 (PCR) Parainfluenza 4 (PCR) RSV (PCR) Entero/Rhino (PCR) 01/18/18 01/19/18 01/19/18 Unknown 00:10 05:12 WBC RBC Hgb Hct MCV MCH MCHC RDW Plt Count Neut % (Auto) Lymph % (Auto) [place] % (Auto) Eos % (Auto) Baso % (Auto) Neut # (Auto) PT INR Sodium 140 Potassium 3.4 Chloride 99 Carbon Dioxide 29 BUN 12 Creatinine 0.70 Estimated GFR > 60.0 BUN/Creatinine Ratio 17.1 Glucose 90 Lactate 1.4 Calcium 8.4 Phosphorus 3.6 Magnesium 1.9 Total Bilirubin AST ALT Alkaline Phosphatase Total Creatine Kinase CK-MB (CK-2) CK-MB (CK-2) Rel Index Troponin I B-Natriuretic Peptide Total Protein Albumin 3.4 L Globulin Albumin/Globulin Ratio Lipase Procalcitonin Urine Color Urine Appearance Urine pH Ur Specific [place] Urine Protein Urine Glucose (UA) Urine Ketones Urine Occult Blood Urine Nitrate Urine Bilirubin Urine Urobilinogen Ur Leukocyte Esterase Urine RBC Urine WBC Ur Squamous Epith Cells Urine Bacteria Ur Culture Indicated? Micro UA Comment Chlamy pneumoniae PCR Not detected Adenovirus (PCR) Not detected B.parapertussis DNA PCR Not detected Coronavirus OC43 (PCR) Not detected Coronavirus HKU1 (PCR) Not detected Coronavirus 229E (PCR) Not detected Coronavirus NL63 (PCR) Not detected Human Metapneumovir PCR Not detected Influenza Type A (PCR) Not detected Influenza Type B (PCR) Not detected M. pneumoniae (PCR) Not detected Parainfluenza 1 (PCR) Not detected Parainfluenza 2 (PCR) Not detected Parainfluenza 3 (PCR) Not detected Parainfluenza 4 (PCR) Not detected RSV (PCR) Not detected Entero/Rhino (PCR) Not detected 01/19/18 01/19/18 01/19/18 05:12 05:12 06:19 WBC 15.9 H RBC 4.31 Hgb 12.0 Hct 38.2 MCV 88.7 MCH 27.9 MCHC 31.5 RDW 15.6 H Plt Count 181 Neut % (Auto) 77.2 H Lymph % (Auto) 14.7 L [place] % (Auto) 6.6 Eos % (Auto) 1.2 L Baso % (Auto) 0.3 Neut # (Auto) 24202 H PT 34.9 H INR 2.9 H Sodium Potassium Chloride Carbon Dioxide BUN Creatinine Estimated GFR BUN/Creatinine Ratio Glucose Lactate Calcium Phosphorus Magnesium Total Bilirubin AST ALT Alkaline Phosphatase Total Creatine Kinase CK-MB (CK-2) CK-MB (CK-2) Rel Index Troponin I B-Natriuretic Peptide Total Protein Albumin Globulin Albumin/Globulin Ratio Lipase Procalcitonin 0.15 Urine Color Urine Appearance Urine pH Ur Specific [place] Urine Protein Urine Glucose (UA) Urine Ketones Urine Occult Blood Urine Nitrate Urine Bilirubin Urine Urobilinogen Ur Leukocyte Esterase Urine RBC Urine WBC Ur Squamous Epith Cells Urine Bacteria Ur Culture Indicated? Micro UA Comment Chlamy pneumoniae PCR Adenovirus (PCR) B.parapertussis DNA PCR Coronavirus OC43 (PCR) Coronavirus HKU1 (PCR) Coronavirus 229E (PCR) Coronavirus NL63 (PCR) Human Metapneumovir PCR Influenza Type A (PCR) Influenza Type B (PCR) M. pneumoniae (PCR) Parainfluenza 1 (PCR) Parainfluenza 2 (PCR) Parainfluenza 3 (PCR) Parainfluenza 4 (PCR) RSV (PCR) Entero/Rhino (PCR) Assessment & Plan Plan: Assessment/Plan Narrative: IMPRESSION AND PLAN UTI; POA; ORGANISM IS UNCLEAR; NO PRIOR CX NOTED; CONT CURRENT ABX FOR NOW; FOLOW CX AND SENSITIVITY RESULT; ADJUST ABX INDICATED CLINICALLY LEUKOCYTOSIS; LIKELY DUE TO ABOVE; IMPROVED; HOWEVER, ELEVATED WBC NOTED SINCE LATE 2016; ? CAUSE; DAILY CBC; FOLLOW CX COUMADIN COAGULOPATHY; DAILY INR; CONT HOME DOSE; INR GOAR 2-3. OBESITY; OUTPATIENT MANAGEMENT POSS DEMENTIA; APPEARS AT BASELINE; MONITOR FOR NOW; RE-ORIENT INDICATED SOB/LYNCH; APPEARS AT BASELINE; ECHO ORDERED DUE TO CONGESTION NOTED ON CHEST FILM ; BUMEX GIVEN; PT/OT; AMBULATE TID; OOB/ IN CHAIR WITH EACH MEAL LUIS; PRN BIPAP WHILE ASLEEP IF INDICATED FALL; STRICT FALL PRECAUTIONS WHILE IN HOUSE; PT/OT CHRONIC A FIB; RATE IS CONTROLLED; RESTART ON HOME MEDS PHYSICAL DECONDITIONING; PTOT; CONSIDER SNF ON DISPOSITION; FALL PRECAUTIONS; OOB/ IN CHAIR WITH EACH MEAL POSS POOR / UNSTEADY GAIT; FALL PRECAUTIONS; PT/OT DC PER CLINICAL COURSE Quality VTE Deep Vein Thrombosis/Pulmonary Embolism Present on Admission: No
--- NOTE | 2018-01-19 14:15 | PT.IPTN ---
Physical Therapy Treatment Note M3 PT-IP Subjective Start: 01/19/18 15:18 Freq: NEEDED Status: Active Protocol: Document 01/19/18 14:15 [facility] (Rec: 01/19/18 15:19 [facility] [id number]) Subjective Physical Therapy Visit Type Type Patient Refusal Physical Therapy Visit Comments Patient Comments able to obtain PLOF information, but pt requested to not mobilize with PT today due to fatigue, feeling shaky. RN notified.
--- NOTE | 2018-01-19 14:52 | CM.IDA ---
Discharge Planning/Care Management CM Discharge Assessment Start: 01/19/18 14:42 Freq: Status: Active Protocol: Document 01/19/18 14:42 [facility] (Rec: 01/19/18 14:52 [facility] [id number]) Discharge Planning Assessment Assigned [employer] Working Supervisor HIRO Harris DPOA/Assigned Designee Name Louie Dee, spouse Contact Information [phone], cell Advance Directives? Yes: HERE IN MEDICAL RECORDS History Provided By Patient Prior Living Arrangements House Household Members spouse Type of transporation used prior to Relies on Others admit Comment Met w/pt, explained role. Pt very juan miguel in all answers and does not elaborate unless this NAIL WELTER prompts. Pt lives w/her spouse Louie, she states he does everything. Pt gets up and dresses herself daily, then watches some TV per her report. Pt admits to not wanting to go out about and do anything for about three years. Pt expects to stay in the hospital this evening and suggests to this NAIL WELTER to speak w/her when he gets here. Pt shares she has been through 3 surgeries. Pt says she has two children and her has two children but they never see them because they're too busy. Relayed conversation to JOELLE Boogie; she explains pt likely has mild dementia ? Spouse will not be back until this evening, RN encouraged this NAIL WELTER to make contact w/him . PT/OT evals are pending. Following closely. Independent with ADL's No Is patient alert and oriented? No: Mild dementia Needs Assistance With Bathing Grooming Meal Prep Toileting Managing Medications Home Chores / Shopping Patient/Family Preference Home with Home Health Comment Therapy evals pending. Discharge Plan Home Transportation Arrangement Family SNF/HH Preference Can't remember name of HH agency used in the past, maybe [facility] ? Whiteboard Updated in Patient Room with Yes name and ext. # of [employer] Working Supervisor Review Status In Process
--- NOTE | 2018-01-19 15:27 | PC.NURSE ---
Pt unsteady with transfers, states she needs a gait belt. When PT came to work with her, stated I'm too shakey to take a walk. Pt's has concerns about her recent physical deterioration and inability to care for herself. Would like to discuss with MD when available - either today or tomorrow.
--- NOTE | 2018-01-19 15:52 | OT.IP.TRT ---
Occupational Therapy Treatment Note M3 OT- IP Subjective and Pain Start: 01/19/18 15:51 Freq: Status: Active Protocol: Document 01/19/18 15:51 [facility] (Rec: 01/19/18 15:52 [facility] [id number]) OT- Subjective Occupational Therapy Visit Type Type Patient Refusal Notes Pt states too tired and not wanting to get up for OT eval, able to reconfirm information that pt gave PT for PLOF. Pt states independent for all basic ADL's, WIS with shower chair and back rest, and hi toilets.
[2018-01-19] MEDS: WARFARIN 2.5 MG TABLET PO (17:04)
[2018-01-19] MEDS: DOCUSATE 250 MG CAPSULE PO (17:04)
[2018-01-19] MEDS: LATANOPROST 0.005% OPHTH 2.5 ML 1 DROPS EYE-BOTH (21:14)
[2018-01-20] VITALS (11 sets, daily range): BP systolic 104–134; BP diastolic 56–81; PULSE 5–87; RESP 16–24; TEMP 36.6–37; O2SAT 89–98
--- NOTE | 2018-01-20 03:44 | PC.NURSE ---
Care of pt. transferred from [place] @ 0334. Assessment done, pt. denies any pain @ present. Noted Fentanyl patch 25 mcg. on her Lt. posterior shoulder. No C/O dyspnea no SOB noted, coughing inter. white sputum. Auscultated her Lung fierro noted fine crackles through posterior fierro. 2 liters sat. 94-97%. Will cont. POC & monitor.
[2018-01-20 05:37] LABS: Add Manual Diff / Slide Review NO; Basophils Percent Auto 0.5 % (0-2); Eosinophils Percent Auto 2.9 % (2-4); Hematocrit 37.8 % (36-46); Hemoglobin 11.9 g/dL (12.0-16.0); Lymphocytes Percent Auto 21.8 % (25-40); Mean Corpuscular HGB Conc 31.5 % (30-36); Mean Corpuscular Volume 88.8 fL (80-100); Monocytes Percent Auto 8.9 % (3-14); Neutrophils Absolute Auto 8300 /uL (3000-5900); Neutrophils Percent Auto 65.9 % (50-75); Platelet Count 215 X10^3/uL (150-400); Red Blood Cell Count 4.26 X10^6/uL (4.0-5.2); White Blood Cell Count 12.6 X10^3/uL (4.5-11.0)
[2018-01-20 05:40] LABS: INR 2.4 (0.9-1.3); Prothrombin Time 27.7 SECONDS (10.1-12.7)
[2018-01-20 05:45] LABS: Alanine Aminotransferase 16 IU/L (9-52); Albumin 3.6 g/dL (3.5-5.0); Alkaline Phosphatase 108 U/L (38-126); Aspartate Aminotransferase 19 IU/L (14-36); BUN Creatinine Ratio 18.8 (6-22); Bilirubin Total 0.6 mg/dL (0.2-1.3); Blood Urea Nitrogen 15 mg/dL (7-17); Calcium 8.5 mg/dL (8.4-10.2); Carbon Dioxide 28 mmol/L (22-32); Chloride 102 mmol/L (98-107); Estimated Glomerular Filt Rate > 60.0 mL/min (>60); Globulin 3.6 g/dL (1.7-4.1); Glucose 114 mg/dL (80-110); HEMOLYSIS < 15 (0-50); Magnesium 2.4 mg/dL (1.6-2.3); Phosphorous 4.4 mg/dL (2.8-4.1); Potassium 4.4 mmol/L (3.4-5.1); Sodium 140 mmol/L (137-145); Total Protein 7.2 g/dL (6.3-8.2)
[2018-01-20] MEDS: BUMETANIDE 1 MG TABLET 0.5 MG PO ×2 (06:41→10:31)
--- NOTE | 2018-01-20 06:52 | PC.NURSE ---
Reported to hospitalist renetta Broussard only putout 150 cc of sl. cloudy je urine. Ordered to administered 0900 dose of Bumex done. Also reported noted int. coughing & lung sounds fine crackles post. through out. IVF to TKVO since pt. is difficult IV start. Will report to day RN & cont. POC & monitor.
--- NOTE | 2018-01-20 07:00 | DI.RAD.S_ITS ---
PROCEDURE: XR CHEST 1V INDICATIONS: SOB TECHNIQUE: One view of the chest was acquired. COMPARISON: [facility], CR, XR CHEST 1V, 12/02/2017, 5:39. [facility], CR, XR CHEST 1V, 01/18/2018, 16:52. [facility], CR, XR CHEST 2V, 01/19/2018, 9:44. FINDINGS: Surgical changes and devices: Postsurgical changes are redemonstrated in the lower cervical spine as well as bone cement within the upper lumbar spine. Lungs and pleura: No pleural effusions or pneumothorax. There are persistent bilateral reticular interstitial opacities consistent with mild pulmonary edema which appears similar to the prior studies. Mediastinum: Mediastinal contours appear unchanged. Heart size is mildly enlarged. Bones and chest wall: No suspicious bony lesions. Overlying soft tissues appear unremarkable. IMPRESSION: 1. Persistent mild pulmonary edema. Dictated by: Dallas Michael M.D. on 01/20/2018 at 8:54 Approved by: Dallas Michael M.D. on 01/20/2018 at 8:56
[2018-01-20] MEDS: METOPROLOL ER 50 MG TABLET 100 MG PO (08:03)
[2018-01-20] MEDS: dilTIAZem CD 180 MG CAP PO ×2 (08:03→20:26)
[2018-01-20] MEDS: DULOXETINE 30 MG CAPSULE 60 MG PO ×2 (08:03→20:26)
[2018-01-20] MEDS: PANTOPRAZOLE 40 MG TABLET PO ×2 (08:03→20:27)
[2018-01-20] MEDS: TIMOLOL 0.5% OPHTH 1 DROPS EYE-BOTH ×2 (08:04→20:27)
[2018-01-20] MEDS: POLYETHYLENE GLYCOL 3350 17 GM POWD.PACK PO (08:13)
--- NOTE | 2018-01-20 09:01 | PT.IIE ---
Surgical History (Last Reviewed 01/19/18 @ 00:40 by GADIEL Morales) History of cataract removal with insertion of prosthetic lens History of cataract removal with insertion of prosthetic lens History of knee replacement History of thyroidectomy Status post appendectomy Status post breast reduction Status post colonoscopy Status post hysterectomy Medical History (Last Reviewed 01/19/18 @ 00:40 by GADIEL Morales) Obstructive sleep apnea of adult (Chronic ~2004) Snoring (Chronic ~2004) Chronic a-fib (Acute) Physical Therapy Inpatient Evaluation/Re-Eval M1 PT/OT-IP Prior Functional Status Start: 01/19/18 15:18 Freq: NEEDED Status: Active Protocol: Document 01/20/18 09:01 [facility] (Rec: 01/20/18 09:14 [facility] [id number]) Medical Review Prior Functional Status Medical History Reviewed Yes Mobility and Gait 4WW for short distances in home, manual w/c and power scooter for longer distances. Activities of Daily Living and IADL's indep. bathing and dressing but spouse supervises Social History Household Members spouse Living Arrangements House Number of Floors (Floors) One Floor Number of Stairs To Enter/Railing? ramped entry Home Environment High Toilet Walk in Shower Ramp Home Equipment Front Wheel Walker Four Wheel Walker Shower Seat with Backrest Additional Social History Comment spouse does assist her with a lot of tasks at home, he is able to drive. Pt with worsening dyspnea 2 days prior to admission, along with possible GLF 1 wk ago hitting her head /s LOC, R upper and forearm. She is not on home O2. M2 PT-IP Current Condition Start: 01/19/18 15:18 Freq: NEEDED Status: Active Protocol: Document 01/20/18 09:01 [facility] (Rec: 01/20/18 09:14 [facility] [id number]) Physical Therapy Current Condition Current Condition Evaluation Date 18 Treatment Diagnosis generalized weakness, impaired gait and activity tolerance, impaired balanc Precautions Other Precautions pt with high fear of falling, gets shaky when anxious M3 PT-IP Subjective Start: 01/19/18 15:18 Freq: NEEDED Status: Active Protocol: Document 01/20/18 09:01 [facility] (Rec: 01/20/18 09:14 [facility] [id number]) Subjective Physical Therapy Visit Type Type Initial Evaluation Visit Start Time 08:38 Visit Stop Time 09:01 Total Visit Minutes 23 Number of FLUX PLANT OPERATOR Visits 0 Physical Therapy Visit Comments Patient Comments pt reports that she gets nervous about walking too far. Patient Goals does not want to go to rehab, wants to be able to go home Therapy Pain Assessment Pain Present Pain Present Denied Pain M4 PT-IP Mobility and Gait Start: 01/19/18 15:18 Freq: NEEDED Status: Active Protocol: Document 01/20/18 09:01 [facility] (Rec: 01/20/18 09:14 [facility] [id number]) PT-Transfer Assessment Sit to and From Stand Sit to and from Stand Standby Assistance Equipment Transfer Assistive Device Gait Belt Front Wheeled Walker Transfers Transfer Destination Chair Transfer Technique Stand Step Pivot Transfer Ability Level of Assist Contact Guard Assistance Gait Assessment Gait Gait Assistance Required: Contact Guard Assist Distance (Feet) 15 Assistive Devices Assistive Device Gait Belt Front Wheeled Walker Gait Deviations General Gait Pattern Decreased Stride Length Decreased Feet Clearance Flexed Trunk Narrow Based Gait Factors Limiting Gait Function Factors Limiting Gait Function Decreased Activity Tolerance Decreased Strength Poor Balance Comments Gait Comments pt with decreased O2 saturation to 91% on 2-L O2 with short gait, back to 96% and greater after 2 min seated rest. PT-Balance Assessment Sitting Balance and Reactions Static Sitting Balance Ability Good Dynamic Sitting Balance Ability Good Standing Balance and Reactions Static Standing Balance Ability Fair Dynamic Standing Balance Ability Fair Device Used FWW M5 PT-IP Objective Assessments Start: 01/19/18 15:18 Freq: NEEDED Status: Active Protocol: Document 01/20/18 09:01 [facility] (Rec: 01/20/18 09:14 [facility] [id number]) Orientation Orientation/Cognition Level of Alertness Alert Orientation Name Age Place Situation Strength Lower Extremity Strength Assessment Bilaterally Impaired Hip flexion 3+/5 B Knee flexion and extension 4/5 B Coordination Assessment Gross Coordination Gross Coordination WNL Assessment Coordination Comments slow movements but coordinated . M6 PT-IP Treatment Start: 01/19/18 15:18 Freq: NEEDED Status: Active Protocol: Document 01/20/18 09:01 [facility] (Rec: 01/20/18 09:14 [facility] [id number]) Physical Therapy Treatment Exercises Exercises Short Arc Quads Education Education Provided Safety M7 PT-IP Assessment and Plan Start: 01/19/18 15:18 Freq: NEEDED Status: Active Protocol: Document 01/20/18 09:01 [facility] (Rec: 01/20/18 09:14 [facility] [id number]) PT Summary Assessment and Plan Potential Rehabilitation Potential Good Status of Condition at Evaluation Evolving Summary Impairments Strength Balance Bed Mobility Transfers Gait Activity Tolerance Assessment Summary Pt fatigued with short distance ambulation today, only able to tolerate 15 ft of gait before requesting to sit and could not be coaxed into further ambulation. O2 saturation decreased to 92% on 2-L O2 (does not use home O2) . She has a high fear of falling, had an episode of increased shaking/tensing of the entire body when performing gait. At this time, further assessment is required as well as discussion and CG training with pt's spouse for d/c disposition. She is not able to ambulate household distances, and will greatly benefit from physical therapy during this hospitalization to progress her functional independence, safety with gait, and strength . Pt may benefit from SNF rehabilitation upon d/c unless she is able to safely manage household distance gait with a walker and able to maintain her balance during gait assessment. Goals Bed Mobility Goal Standby Assistance Transfer Goal Standby Assistance Gait Goal Standby Assistance Front Wheel Walker Gait Distance 50 Days to Meet Goals 5 Frequency of Treatment Frequency Of Treatment Twice a Day Treatment Plan Physical Therapy Treatment Plan Bed Mobility Training Transfer Training Gait Training Therapeutic Exercise Balance Retraining Discharge Planning Other Recommendations and Next Treatment prog. gait, sit<->stand, Focus confidence with standing balance- monitor O2 Recommendations To Nursing Amount of Assist Needed 1 Person Assist Discharge Recommendations PT Discharge Recommendations Home with 24/7 Assist Home Health SNF Rehab Other Discharge Recommendations SNF vs. home with 24/7 and
--- NOTE | 2018-01-20 10:24 | PM.PN.1 ---
Subjective Date Patient Seen: 01/20/18 Time Patient Seen: 07:00 Interval history: REPORTED WEAKNESS WHILE STANDING AND DURING AMBULATION NO FEVER OR CHILLS SPOKE TO SPOUSE AT BEDSIDE WOULD PREFER PATIENT TO GO TO SNF ON DISPOSITION Exam Vital Signs (past 8 hours): - 01/20/18 03:50 01/20/18 05:02 01/20/18 07:15 Temperature 97.8 F Pulse Rate 73 76 Respiratory Rate 16 16 Blood Pressure 115/60 107/56 L Pulse Oximetry 97 94 95 01/20/18 09:17 01/20/18 09:42 Temperature Pulse Rate Respiratory Rate Blood Pressure Pulse Oximetry 89 L 92 Oxygen Delivery Method Nasal Cannula Oxygen Flow Rate 0 Narrative Exam Narrative: NO ACUTE DISTRESS. PATIENT IS ALERT ORIENTED X3. HARD OF HEARING; POSS MILD DEMENTIA VITAL SIGNS STABLE HEAD ATRAUMATIC NORMOCEPHALIC NECK : SUPPLE WITHOUT ADENOPATHY EYE: EOMI, PERRLA, NORMAL CONJUNCTIVA CHEST: REGULAR RATE.. NO RUBS. PMI IS NON DISPLACED. NO MURMURS PULMONARY: DECREASED BS OVER THE BASES. MILD BIBASILAR CRACKLES NOTED; NO INCREASED DULLNESS TO PERCUSSION ABDOMEN: SOFT; NON TENDER; BS + IN ALL 4 QUAD EXTREMITIES:NO EDEMA.. NO CYANOSIS OR CLUBBING NOTED. NEURO: CRANIAL NERVES 2-12 GROSSLY INTACT. NO FOCAL NEUROLOGICAL DEFICIT NOTED. MSK: NORMAL RANGE OF MOTION FOR AGE. NO JOINT EFFUSION. SKIN: NORMAL FOR ETHNICITY; NO ECCHYMOSIS. NO LESION. FAIR TURGOR.; NO RASHES : NORMAL EXTERNAL GENITALIA. PSYCH : APPROPRIATE MOOD AND AFFECT. ALERT AWAKE ORIENTED X3 Objective Labs Result Diagrams: 01/20/18 05:22 01/20/18 05:22 Labs: Laboratory Results - last 24 hr 01/20/18 01/20/18 01/20/18 05:22 05:22 05:22 WBC 12.6 H RBC 4.26 Hgb 11.9 L Hct 37.8 MCV 88.8 MCH 28.0 MCHC 31.5 RDW 16.0 H Plt Count 215 Neut % (Auto) 65.9 Lymph % (Auto) 21.8 L Cavalier % (Auto) 8.9 Eos % (Auto) 2.9 Baso % (Auto) 0.5 Neut # (Auto) 8300 H PT 27.7 H D INR 2.4 H Sodium 140 Potassium 4.4 Chloride 102 Carbon Dioxide 28 BUN 15 Creatinine 0.80 Estimated GFR > 60.0 BUN/Creatinine Ratio 18.8 Glucose 114 H Calcium 8.5 Phosphorus 4.4 H Magnesium 2.4 H Total Bilirubin 0.6 AST 19 ALT 16 Alkaline Phosphatase 108 Total Protein 7.2 Albumin 3.6 Globulin 3.6 Albumin/Globulin Ratio 1.0 Assessment & Plan Plan: Assessment/Plan Narrative: IMPRESSION AND PLAN UTI; POA; ORGANISM IS UNCLEAR; NO PRIOR CX NOTED; CONT CURRENT ABX FOR NOW; AWAITING CX AND SENSITIVITY RESULT WHICH ARE PENDING ; ADJUST ABX INDICATED CLINICALLY LEUKOCYTOSIS; LIKELY DUE TO ABOVE; CONT TO SHOW IMPROVEMENT; HOWEVER, ELEVATED WBC NOTED SINCE LATE 2016; ? CAUSE; DAILY CBC; AWAITING CX RESULTS ; ADJUST ABX INDICATED COUMADIN COAGULOPATHY; DAILY INR; CONT HOME DOSE; INR GOAR 2-3. OBESITY; OUTPATIENT MANAGEMENT POSS DEMENTIA; APPEARS AT BASELINE; MONITOR FOR NOW; RE-ORIENT INDICATED; WILL ADD SEROQUEL FOR NIGHT TIME SLEEP AID POSS HF WITH PRESENRVED SYST FCT; CONT TO HAVE MOMENT OF OXYGEN DESATURATION; ECHO WITH NRML EF AND SOME TRICUSPID REGURGE; HAS NO SIGNIFICANT CHANGES FROM PRIOR; INC BUMEX DOSE TODAY; PT/OT; AMBULATE TID; OOB/ IN CHAIR WITH EACH MEAL; DAILY WT WITH SAME SCALE; REFER TO CARDIO OP LUIS; PRN BIPAP WHILE ASLEEP IF INDICATED FALL; STRICT FALL PRECAUTIONS WHILE IN HOUSE; PT/OT CHRONIC A FIB; RATE IS CONTROLLED; RESTART ON HOME MEDS PHYSICAL DECONDITIONING; PTOT; WILL REFER TO SNF ON DISPOSITION; FALL PRECAUTIONS; OOB/ IN CHAIR WITH EACH MEAL POSS POOR / UNSTEADY GAIT; FALL PRECAUTIONS; PT/OT DC PER CLINICAL COURSE; LIKELY IN NEXT 24-48 HRS TO SNF VS HOME WITH HH Quality VTE Deep Vein Thrombosis/Pulmonary Embolism Present on Admission: No
--- NOTE | 2018-01-20 16:20 | CM.DPC ---
DCP Cont: Requested by pt's spouse today to review DCP options. Met w/pt and spouse at bedside. Spouse explains he would like to see pt DC to SNF because she requires additional strength training from PT/OT and he fears pt lacks the motivation to move once home. Pt does not refute this. Discussed SNF options, pt says she has been many times and will not go this time. Pt agreeable to Home health and pt/spouse request [facility]. Spouse thinks he will be okay taking pt home upon DC if she continues to get PT while admitted, likely an addtl 24-48 hrs. We then discussed in detail the feelings of hopelessness and depression pt has experienced over the last few years. Pt denies thoughts of harm to self or others. Pt doesn't like leaving the house and doesn't find much pleasure in activities she use to love like visiting family, friends, shopping or going to the movies. Spouse feels pt should talk to someone that specializes in the unique experiences of the geriatric population, this TRACTOR OPERATOR LASER LEVELING agrees. Spouse able to pay privately for counseling visits if they can not find a counselor that takes Medicare. Tasks still needing to be completed: PPK and referral to [facility], PT/RN/TRACTOR OPERATOR LASER LEVELING. List of potential counselors. Following closely. HIRO Yañez
--- NOTE | 2018-01-20 16:31 | PT.IPTN ---
Physical Therapy Treatment Note M2 PT-IP Current Condition Start: 01/19/18 15:18 Freq: NEEDED Status: Active Protocol: Document 01/20/18 09:01 [facility] (Rec: 01/20/18 09:14 [facility] [id number]) Physical Therapy Current Condition Current Condition Evaluation Date 01/20/18 Treatment Diagnosis generalized weakness, impaired gait and activity tolerance, impaired balanc Precautions Other Precautions pt with high fear of falling, gets shaky when anxious M3 PT-IP Subjective Start: 01/19/18 15:18 Freq: NEEDED Status: Active Protocol: Document 01/20/18 14:50 [facility] (Rec: 01/20/18 16:31 [facility] [id number]) Subjective Physical Therapy Visit Type Type Treatment Note Visit Start Time 14:50 Visit Stop Time 15:15 Total Visit Minutes 25 Number of NETWORK SECURITY ARCHITECT Visits 1 Physical Therapy Visit Comments Patient Comments Pt stated she gets shaky when walking. Pt also states her legs give out. Therapy Pain Assessment Pain Present Pain Present Denied Pain M4 PT-IP Mobility and Gait Start: 01/19/18 15:18 Freq: NEEDED Status: Active Protocol: Document 01/20/18 14:50 [facility] (Rec: 01/20/18 16:31 [facility] [id number]) PT-Bed Mobility Assessment Supine to Sit Supine to Sit Contact Guard Assistance Sit to Supine Sit to Supine Contact Guard Assistance PT-Transfer Assessment Sit to and From Stand Sit to and from Stand Contact Guard Assistance Equipment Transfer Assistive Device Gait Belt Front Wheeled Walker Transfer Ability Level of Assist Contact Guard Assistance Comments Mobility Comments Pt remained at the EOB for sit -stand. Gait Assessment Comments Gait Comments Pt did not walk due to excessive shaking upon standing. M5 PT-IP Objective Assessments Start: 01/19/18 15:18 Freq: NEEDED Status: Active Protocol: Document 01/20/18 09:01 [facility] (Rec: 01/20/18 09:14 [facility] [id number]) Orientation Orientation/Cognition Level of Alertness Alert Orientation Name Age Place Situation Strength Lower Extremity Strength Assessment Bilaterally Impaired Hip flexion 3+/5 B Knee flexion and extension 4/5 B Coordination Assessment Gross Coordination Gross Coordination WNL Assessment Coordination Comments slow movements but coordinated . M6 PT-IP Treatment Start: 01/19/18 15:18 Freq: NEEDED Status: Active Protocol: Document 01/20/18 14:50 [facility] (Rec: 01/20/18 16:31 [facility] [id number]) Physical Therapy Treatment Exercises Exercises Gluteal Sets Quad Sets Heel Slides Seated Knee Flexion/Extension Education Education Provided Safety Other Treatments Other Treatment Performed sit-stand x5 seated marches 30 seconds x2 M7 PT-IP Assessment and Plan Start: 01/19/18 15:18 Freq: NEEDED Status: Active Protocol: Document 01/20/18 14:50 [facility] (Rec: 01/20/18 16:31 [facility] [id number]) PT Summary Assessment and Plan Potential Rehabilitation Potential Good Status of Condition at Evaluation Evolving Summary Impairments Strength Balance Bed Mobility Transfers Gait Activity Tolerance Assessment Summary Pt with excessive shaking of bilateral legs and needed to sit back down. Pt performed sit-stand, seating marches with shaking of BLE LLE>RLE. O2 remained above 90% during activity. Goals Bed Mobility Goal Standby Assistance Transfer Goal Standby Assistance Gait Goal Standby Assistance Front Wheel Walker Gait Distance 50 Days to Meet Goals 5 Frequency of Treatment Frequency Of Treatment Twice a Day Treatment Plan Physical Therapy Treatment Plan Bed Mobility Training Transfer Training Gait Training Therapeutic Exercise Balance Retraining Discharge Planning Other Recommendations and Next Treatment prog. gait, sit<->stand, Focus confidence with standing balance- monitor O2 Recommendations To Nursing Amount of Assist Needed 1 Person Assist Discharge Recommendations Other Discharge Recommendations SNF vs. home with 04/09 and
[2018-01-20] MEDS: WARFARIN 2.5 MG TABLET PO (16:45)
[2018-01-20] MEDS: DOCUSATE 250 MG CAPSULE PO (16:46)
--- NOTE | 2018-01-20 17:25 | PC.NURSE ---
Addendum entered by Lexis Ontiveros R.N. 01/20/18 22:45: Pt positioned onto left side. IV heplocked after infusion of levaquin. Continuous pulse oximeter with pt on 2L/min oxygen per NC. Sats 95%. Original Note: Addendum entered by Lexis Ontiveros R.N. 01/20/18 21:36: Mostly sleeping unless staff waken pt for care. Declines offer to be repositioned, I can reposition myself. IV levaquin infused as ordered. Original Note: Pt awake, alert in bed watching television. Oriented to person, place and date. Denies pain. 02 @ 2L per NC sats 98% per continuous monitor. Scattered crackles to posterior fierro throughout with occasional faint expiratory wheeze. Apical heartrate irregular. Tele dc'd as ordered per cured meat packing supervisorMell. BL calf scd's replaced. Bed alarm in place. Georges to gravity.
[2018-01-20] MEDS: levoFLOXacin 750 MG/150 ML PIGGYBACK 100 MG IV (19:27)
[2018-01-20] MEDS: LATANOPROST 0.005% OPHTH 2.5 ML 1 DROPS EYE-BOTH (20:24)
[2018-01-20] MEDS: QUETIAPINE 25 MG TABLET 12.5 MG PO (20:27)
[2018-01-21] VITALS (8 sets, daily range): BP systolic 101–114; BP diastolic 60–70; PULSE 66–82; RESP 16–19; TEMP 36.4–36.6; O2SAT 1–99
--- NOTE | 2018-01-21 05:06 | PC.NURSE ---
Pt is A and O x 4, VSS. Pt slept all of noc shift. She has requested to keep urinary catheter in place to avoid having to get up in the noc. Output is clear and dark yellow, qs. LS exp wheezes. Pt refused CPAP at hs, in on 2 L O2 NC prophylactically and saturation has been 94-95%. S1, S2. + BTs.
[2018-01-21 06:17] LABS: INR 2.5 (0.9-1.3); Prothrombin Time 29.5 SECONDS (10.1-12.7)
[2018-01-21 06:20] LABS: Add Manual Diff / Slide Review NO; Basophils Percent Auto 0.4 % (0-2); Eosinophils Percent Auto 4.5 % (2-4); Hematocrit 37.2 % (36-46); Hemoglobin 11.9 g/dL (12.0-16.0); Lymphocytes Percent Auto 22.3 % (25-40); Mean Corpuscular HGB Conc 31.9 % (30-36); Mean Corpuscular Hemoglobin 28.4 PG (26-34); Mean Corpuscular Volume 88.8 fL (80-100); Neutrophils Absolute Auto 8000 /uL (3000-5900); Neutrophils Percent Auto 64.8 % (50-75); Platelet Count 191 X10^3/uL (150-400); Red Blood Cell Count 4.19 X10^6/uL (4.0-5.2); Red Cell Distribution Width 16.1 % (11.6-14.8); White Blood Cell Count 12.4 X10^3/uL (4.5-11.0)
[2018-01-21 06:25] LABS: Alanine Aminotransferase 19 IU/L (9-52); Albumin 3.3 g/dL (3.5-5.0); Alkaline Phosphatase 98 U/L (38-126); Aspartate Aminotransferase 20 IU/L (14-36); BUN Creatinine Ratio 17.1 (6-22); Bilirubin Total 0.5 mg/dL (0.2-1.3); Blood Urea Nitrogen 12 mg/dL (7-17); Calcium 8.5 mg/dL (8.4-10.2); Carbon Dioxide 32 mmol/L (22-32); Chloride 99 mmol/L (98-107); Estimated Glomerular Filt Rate > 60.0 mL/min (>60); Globulin 3.4 g/dL (1.7-4.1); Glucose 98 mg/dL (80-110); HEMOLYSIS < 15 (0-50); Potassium 4.5 mmol/L (3.4-5.1); Sodium 140 mmol/L (137-145); Total Protein 6.7 g/dL (6.3-8.2)
[2018-01-21] MEDS: dilTIAZem CD 180 MG CAP PO (09:07)
[2018-01-21] MEDS: BUMETANIDE 1 MG TABLET PO (09:07)
[2018-01-21] MEDS: PANTOPRAZOLE 40 MG TABLET PO (09:07)
[2018-01-21] MEDS: METOPROLOL ER 50 MG TABLET 100 MG PO (09:07)
[2018-01-21] MEDS: TIMOLOL 0.5% OPHTH 1 DROPS EYE-BOTH (09:08)
--- NOTE | 2018-01-21 09:09 | PM.DS.1 ---
History of Present Illness Date Patient Seen: 01/21/18 Time Patient Seen: 08:38 Chief complaint: generalized weakness, fall one wk ago on thinners Narrative: Patient does have history of diastolic congestive heart failure, LVEF 60% Echo, 03/29/2017 LVEF 60-65% Left ventricle with normal size and function. Right ventricle moderately dilated. RV systolic function is at the lower limit of normal. Mild to moderate mitral regurgitation, with an increase in severity of MR since 01/2017. Severe tricuspid regurgitation. RVSP 33 mmHg (pulmonary HTN improved from 01/2017). Patient does not appear to be significantly volume overloaded on exam. Chest x-ray with findings for perihilar opacities and cardiomegaly. Currently diuresing, however there is a concern for worsening mitral regurgitation. Will repeat an echocardiogram. Will also repeat PA and lateral XR this morning Addendum Documented By: Ralph Broussard 01/19/18 0526 Addendum Signed By: <Electronically signed by Ralph Broussard> 01/19/18 0550 History of Present Illness Date Patient Seen: 01/18/18 Time Patient Seen: 22:30 Chief complaint: generalized weakness, fall one wk ago on thinners Narrative: The patient is an 82-year-old female with PMH of AFIB (AC w/ coumadin), HF, LUIS (on CPAP), chronic pain (h/o spinal stenosis and osteoarthritis), and opioid dependence. Patient presented to the ED on 01/18/2018 complaining of dyspnea. Specifically, patient notes I couldn't breathe. Symptom onset is acute and progressively worsening, initially noted 2 days ago. Associated symptoms include cough with purulence (w/ mild hemoptysis), generalized weakness, and loss of appetite. Denies fever/chills, chest pain, pleurisy, palpitations, peripheral edema, abdominal pain, gastrointestinal distress, dysuria, suprapubic tenderness, malaise, and myalgias. Denies hematemesis, hematuria, melena and hematochezia. Patient is known to have congestive heart failure with daily use of a diuretic. Patient notes to have missed several doses of the diuretic in the past week. Reports weighing herself daily, however reports weight loss of 3-4 lbs in the past few days. Notes baseline weight to be 180lbs. Presented today w/ weight of 175.6 lbs. No known history of tobacco abuse / dependence, asthma, or COPD. Patient reports experiencing a ground level fall while standing upright 1 week ago. Notes falling backwards and hitting occipital aspect of head and right upper aspect of the arm and forearm. Chronically anticoagulated w/ coumadin. Denies loss of consciousness. Prior to the event she has not experienced dizziness, lightheadedness, or palpitations. Patient states that her legs gave out. Typically uses walker for ambulation. In the past several days has required use of a wheelchair on occasion. ED Work-Up WBC 20.4 Hgb 13.1 Plt 222 INR 3.0 Na 140 K 4.2 Cl 98 CO2 30 Ca 8.8 Glu 129 Alb 4.2 BUN 14 sCr 0.7 GFR > 60 BUN/Cr ratio 20 T. Bili 1.1 AST 23 ALT 20 Alk Phos 127 Lipase 26 CK < 20 Trop < 0.012 TNP 552 Urine WBC 10-30, Urine Bacteria (many, > 30) CT of lumbar spine and revealed no new findings to suggest acute compression deformity or fracture. XR bilat pelvis / hips was unremarkable for fractures or dislocations. Heat CT unremarkable for an acute intracranial process. Received furosemide 40 mg IV x1 and levofloxacin 750 mg x1 Discharge Providers Date of admission: 01/18/18 21:11 Primary care physician: Arturo Mcdonald MD Consults: 01/18/18 22:29 Consult to Environmental Educator Routine Comment: assess resources/discharge needs 01/19/18 12:19 Consult to Occupational Therapy Evaluate & Treat Comment: Physician Instructions: Evaluate and treat Consult to Physical Therapy Evaluate & Treat Comment: Physician Instructions: Evaluate and Treat 01/20/18 10:13 Consult to Discharge Planning Routine Comment: PLEASE REFER TO SNF Discharge provider: Toan Recinos DO Discharge Date: 01/21/18 Summary Discharge Diagnosis: ACUTE ON CHRONIC CHF WITH PRESERVED SYST FCT; STABLE ON DC E COLI UTI; DC ON ABX LEUKOCYTOSIS; IMPROVING COUMADIN COAGULOPATHY OBESITY; OUTPATIENT MANAGEEMNT LUIS; CPAP PER HOME SETTING CHRONIC AFIB; HR IS CONTROLLED PHYSICAL DECONDITIONING ; REFUSED SNF DEPRESSION/ ANXIETY; DC ON ZOLOFT AND BUSPAR ADDED TO PRIOR REGIMENT Hospital Course: PATIENT ADMITTED TO THE ED WITH REPORTED WITH WEAKNESS AND A REPORTED FALL PATIENT SX WAS LIKELY RELATED TO UTI AND PHYSICAL DECONDITIONING SHE WAS TREATED WITH ABX AND PT/OT ORDERED RECOMMENDATION GIVEN FOR SNF REFERRAL ON DISPOSITION HOWEVER PATIENT DECLINED ULTIMATELY , PATIENT COULD BE SENT TO SNF AFTER DC PER PCP IF NEEDED SHE MET REQUIREMENT AT THIS TIME SHE IS A HIGH RISK FOR FALL AND PT/OT WOULD BENEFITS GREATLY DC WITH HOME HEALTH AND AXIETY MEDS ADJUSTED Status at Discharge Cognitive/behavioral status at discharge: STABLE AND AT BASELINE MENTALLY Functional status at discharge: uses cane/walker Overall status at discharge: patient is back to baseline Time Spent with Patient Greater than 30 minutes Exam Vital Signs (past 8 hours): - 01/21/18 04:00 01/21/18 04:01 01/21/18 08:12 Temperature 97.7 F Pulse Rate 66 Respiratory Rate 19 Blood Pressure 107/64 Pulse Oximetry 95 99 89 L 01/21/18 08:13 Temperature Pulse Rate Respiratory Rate Blood Pressure Pulse Oximetry 1 L Oxygen Delivery Method Nasal Cannula Oxygen Flow Rate 94 Narrative Exam Narrative: NO ACUTE DISTRESS. PATIENT IS ALERT ORIENTED X3. HARD OF HEARING; POSS MILD DEMENTIA VITAL SIGNS STABLE HEAD ATRAUMATIC NORMOCEPHALIC NECK : SUPPLE WITHOUT ADENOPATHY EYE: EOMI, PERRLA, NORMAL CONJUNCTIVA CHEST: REGULAR RATE.. NO RUBS. PMI IS NON DISPLACED. NO MURMURS PULMONARY: DECREASED BS OVER THE BASES. MILD BIBASILAR CRACKLES NOTED; NO INCREASED DULLNESS TO PERCUSSION ABDOMEN: SOFT; NON TENDER; BS + IN ALL 4 QUAD EXTREMITIES:NO EDEMA.. NO CYANOSIS OR CLUBBING NOTED. NEURO: CRANIAL NERVES 2-12 GROSSLY INTACT. NO FOCAL NEUROLOGICAL DEFICIT NOTED. MSK: NORMAL RANGE OF MOTION FOR AGE. NO JOINT EFFUSION. SKIN: NORMAL FOR ETHNICITY; NO ECCHYMOSIS. NO LESION. FAIR TURGOR.; NO RASHES : NORMAL EXTERNAL GENITALIA. PSYCH : APPROPRIATE MOOD AND AFFECT. ALERT AWAKE ORIENTED X3 Objective Labs Result Diagrams: 01/21/18 05:18 01/21/18 05:18 Labs: Laboratory Results - last 24 hr 01/21/18 01/21/18 01/21/18 05:18 05:18 05:18 WBC 12.4 H RBC 4.19 Hgb 11.9 L Hct 37.2 MCV 88.8 MCH 28.4 MCHC 31.9 RDW 16.1 H Plt Count 191 Neut % (Auto) 64.8 Lymph % (Auto) 22.3 L [place] % (Auto) 8.0 Eos % (Auto) 4.5 H Baso % (Auto) 0.4 Neut # (Auto) 8000 H PT 29.5 H INR 2.5 H Sodium 140 Potassium 4.5 Chloride 99 Carbon Dioxide 32 BUN 12 Creatinine 0.70 Estimated GFR > 60.0 BUN/Creatinine Ratio 17.1 Glucose 98 Calcium 8.5 Total Bilirubin 0.5 AST 20 ALT 19 Alkaline Phosphatase 98 Total Protein 6.7 Albumin 3.3 L Globulin 3.4 Albumin/Globulin Ratio 1.0 Discharge Plan Discharge Plan Patient Disposition: Home Health Service Discharge comment: DC HOME WITH HOME HEALTH ACT FARA CARDIAC DIET F/U WITH PCP 3-10 DAYS Discharge Med Rec/Prescriptions Prescriptions: New sertraline [Zoloft] 25 mg tablet 25 mg PO DAILY Qty: 60 RF: 0 buspirone 5 mg tablet 5 mg PO BID Qty: 60 RF: 0 levofloxacin [Levaquin] 750 mg tablet 750 mg PO DAILY Qty: 5 RF: 0 Continue oxycodone 5 MG tablet 5 mg PO Q6H PRN (Reason: pain) Qty: 0 RF: 0 duloxetine 60 MG capsule,delayed release(DR/EC) 60 mg PO BID Qty: 0 RF: 0 ondansetron HCl 4 MG tablet 4 mg PO PRN PRN (Reason: Nausea) Qty: 0 RF: 0 sennosides [senna] 8.6 MG tablet 1 tab PO BID Qty: 0 RF: 0 cetirizine 10 MG tablet 10 mg PO DAILY Qty: 0 RF: 0 cyanocobalamin (vitamin B-12) 1,000 MCG tablet extended release 1,000 mcg PO QPM Qty: 0 RF: 0 fentanyl 25 MCG/HR patch 72 hour 1 patch Topical Q72H Qty: 0 RF: 0 latanoprost 0.005 % drops 1 drp OPHTH BEDTIME Qty: 0 RF: 0 clobetasol 0.05 % ointment 1 applictn Topical .COMPLEX Qty: 30 RF: 0 torsemide 20 mg tablet 20 mg PO DAILY RF: 0 lidocaine 4 % Adhesive Patch,Medicated 1 patch TOPICAL PRN PRN (Reason: pain) RF: 0 diltiazem HCl 180 mg capsule,extended release 24hr 180 mg PO BID RF: 0 docusate calcium 240 mg Capsule 240 mg PO QPM RF: 0 acetaminophen 500 mg Tablet 500 mg PO PRN PRN (Reason: pain) RF: 0 potassium chloride 20 mEq tablet,ER particles/crystals 20 meq PO DAILY RF: 0 warfarin 5 mg tablet 2.5 mg PO SUTUTHSA RF: 0 timolol maleate 0.5 % drops 1 drp EYE-BOTH BID RF: 0 Vitamin D3 50 mcg 50 mcg PO DAILY RF: 0 cannabidiol (CBD) extract 50 mg miscellaneous PRN PRN (Reason: pain) RF: 0 metoprolol succinate 100 MG tablet extended release 24 hr 100 mg PO DAILY RF: 0 pantoprazole 40 MG tablet,delayed release (DR/EC) 40 mg PO BID RF: 0 polyethylene glycol 3350 [Miralax] 119 GM powder 17 gm PO PRN PRN (Reason: Constipation) RF: 0 warfarin 5 mg tablet 5 mg PO QMWF RF: 0 Follow up/Referrals: Arturo Mcdonald MD [Primary Care Provider] - (*appt:01/25 @ 1:[facility] mcdonald [phone] ) Provider Discharge Instructions Diet: Low-fat and Low-cholesterol Skin/Wound/Dressing Care Report to your healthcare provider any signs of infection, such as:: chills, fever, night sweats, increased pain, unusual drainage and unusual redness Visit Report/Discharge Packet Instructions: Sleep Apnea, DI for Heart Failure, Buspirone, Sertraline, How to Manage Shortness of Breath Visit Report Forms: Congestive Heart Failure, Stroke Signs & Symptoms Discharge Data Primary Care Provider: Arturo Mcdonald V Attending Provider: Ralph Broussard Admit Date/Time: 01/18/18 21:11 Discharges patient from system. Discharge Date/Time: 01/21/18 14:36 Quality VTE Deep Vein Thrombosis/Pulmonary Embolism Present on Admission: No
[2018-01-21] MEDS: DULOXETINE 30 MG CAPSULE 60 MG PO (09:15)
--- NOTE | 2018-01-21 09:18 | CM.DPC ---
Referral faxed to [facility]
--- NOTE | 2018-01-21 12:15 | OT.IP.EVAL ---
Current Diagnoses Unspecified diastolic (congestive) heart failure (01/18/18) Past Medical History (Last Reviewed 01/19/18 @ 00:40 by GADIEL Morales) Obstructive sleep apnea of adult (Chronic ~2004) Snoring (Chronic ~2004) Chronic a-fib (Acute) Surgical History (Last Reviewed 01/19/18 @ 00:40 by GADIEL Morales) History of cataract removal with insertion of prosthetic lens History of cataract removal with insertion of prosthetic lens History of knee replacement History of thyroidectomy Status post appendectomy Status post breast reduction Status post colonoscopy Status post hysterectomy Occupational Therapy Inpatient Evaluation/Re-Eval M1 PT/OT-IP Prior Functional Status Start: 01/19/18 15:18 Freq: NEEDED Status: Active Protocol: Document 01/21/18 12:15 PJM (Rec: 01/21/18 17:40 PJ [id number]) Medical Review Prior Functional Status Medical History Reviewed Yes Diet/Fluid Consistency Regular Communication WFL Mobility and Gait 4WW for short distances in home, manual w/c and power scooter for longer distances. Activities of Daily Living and IADL's Pt independent with eating, grooming seated on 4WW, dressing, toileting, and bathing in walk in shower stall, but spouse supervises and assists PRN. Prior Functional Level (Other details) does all IADLS, driving, manages pt's medications and finances. Social History Household Members spouse Living Arrangements House Number of Floors (Floors) One Floor Number of Stairs To Enter/Railing? ramped entry Home Environment High Toilet Walk in Shower Built-In Shower Seat Ramp Home Equipment Front Wheel Walker Four Wheel Walker Manual Wheelchair Power Wheelchair/Scooter Shower Seat with Backrest Hand Held Shower Long Handled Shoe Horn Iron Miner Sock Aid Grab Bars Near Toilet Grab Bars In Shower Employment Status Retired Additional Social History Comment Pt with worsening dyspnea 2 days prior to admission, along with possible GLF 1 wk ago hitting her head /s LOC, R upper and forearm. She is not on home O2. M2 OT-IP Current Condition Start: 01/19/18 15:51 Freq: Status: Active Protocol: Document 01/21/18 12:15 PJM (Rec: 01/21/18 17:40 PJM [id number]) Occupational Therapy Current Condition Current Condition Evaluation Date 01/21/18 Treatment Diagnosis decreased self care and functional mobility with LYNCH w /cough; DX UTI Diagnosis Onset Date 01/18/18 Post Operative Precautions Other Precautions pt with high fear of falling, gets shaky when anxious; fall risk, mild confusion M3 OT- IP Subjective and Pain Start: 01/19/18 15:51 Freq: Status: Active Protocol: Document 01/21/18 12:15 PJM (Rec: 01/21/18 17:40 PJ [id number]) OT- Subjective Occupational Therapy Visit Type Type Initial Evaluation Visit Start Time 11:54 Visit Stop Time 12:15 Total Visit Minutes 21 Notes observing this session and providing info re: pt's prior level of function. Occupational Therapy Visit Comments Patient Comments I get to go home today. Patient/Caregiver Goals to return home where can assist her as needed OT Pain Assessment Pain When Pain Assessed After Treatment Pain Present Pain Present Denied Pain M4 OT- IP ADL's Start: 01/19/18 15:51 Freq: Status: Active Protocol: Document 01/21/18 12:15 PJM (Rec: 01/21/18 17:40 PJ [id number]) OT [id number] General Evaluation Self-Feeding Ability Independent OT ADL-Grooming General Evaluation Grooming Ability Standby Assistance Comments OT Grooming Comments seated in chair this session; pt sits on 4WW at home OT ADL-Oral Care General Eval Oral Care Ability Standby Assistance Comments Oral Care Comments seated in chair this session; pt sits on 4WW at home OT ADL-Dressing General Eval Upper Body Dressing Ability Standby Assistance Lower Body Dressing Ability Minimal Assistance Assistive Devices Dressing Assistive Devices Long Handled Shoe Horn Iron Miner Sock Aid Comments OT Dressing Comments Pt/ familiar with use of AED from previous HH OT tx. Pt has drywall hanger helper hung up in bathroom to assist with incontinent brief changes. Pt rarely wears socks, has sock aid and can also assist PRN. Wears slip on shoes. OT ADL-Toileting General Evaluation Toileting Ability Standby Assistance Comments OT Toileting Comments per CARE ANALYST report, pt declined need to use bathroom this session OT ADL-Bathing Comments OT Bathing Comments CARE ANALYST reports pt completed shower with SBA after set up with verbal cues for unfamiliar set up M5 OT- IP IADL's Start: 01/19/18 15:51 Freq: Status: Active Protocol: Document 01/21/18 12:15 PJM (Rec: 01/21/18 17:40 PJM [id number]) OT-Instrumental Activities of Daily Living Deficits IADL Deficits Identified Deficits Home Safety Awareness Awareness of Need for Assistance at Home Good Awareness Ability to Problem Solve Emergency Unable to Problem Solve Situations Medication Management Medication Management Caregiver Administers Money Management Money Management Caregiver Provides Assistance Meal Preparation Meal Preparation Caregiver Provides Assist Ophthalmic Photographer Ophthalmic Photographer Caregiver Provides Assist Driving Driving Caregiver Provides Assist M6 OT- IP Functional Cognition Start: 01/19/18 15:51 Freq: Status: Active Protocol: Document 01/21/18 12:15 PJM (Rec: 01/21/18 17:40 PJM [id number]) Cognitive Factors Limiting Selfcare Function Cognitive Ability Level of Alertness Alert Patient Orientation Name Place Situation Attention Span Ability Capable of Focused Attention Ability to Follow Commands Able to Follow One Step Commands Memory Description Short Term Impaired Safety Awareness Decreased Recall of Precautions Decreased Ability to Apply Precautions Problem Solving Ability Unable to Identify Errors Needs Assist to Identify Solutions Cognitive Comments Cognitive Assessment Comments Per chart notes, pt has hx of possible dementia with short term memory deficits noted. provides supervision and assistance as needed. Pt has anxiety overlay and does much better when around to provide reassurance. OT- Vision and Hearing OT- Vision Assessment Visual Acuity WFL Vision Assessment Comments pt states she has impaired depth perception; she denies any recent changes M7 OT- IP Mobility and Balance Start: 01/19/18 15:51 Freq: Status: Active Protocol: Document 01/21/18 12:15 PJM (Rec: 01/21/18 17:40 PJM [email or web address]) OT-Transfer Assessment Sit to and From Stand Sit to and from Stand Contact Guard Assistance Technique Transfer Destination Bedside Commode Transfer Technique Stand Step Pivot OT- Gait Assessment Comments Gait Ability Comments see P.T. notes OT- Balance Assessment Sitting Balance and Reactions Static Sitting Balance Ability Good Comments Other Balance Tests/Deviations/Treatment see P.T. notes : M8 OT- IP Objective Assessments Start: 01/19/18 15:51 Freq: Status: Active Protocol: Document 01/21/18 12:15 PJM (Rec: 01/21/18 17:40 PJM [id number]) OT Gross Range of Motion Upper Extremity Range of Motion Assessment Within Functional Limits OT Strength Upper Extremity Strength Assessment Within Functional Limits OT- Coordination Assessment Comments Coordination Comments BUE WFL OT Sensation Assessment Comments Summary Comments Pt denies deficits in BUE's M9 OT- IP Assessment and Plan Start: 01/19/18 15:51 Freq: Status: Active Protocol: Document 01/21/18 12:15 PJM (Rec: 01/21/18 17:40 PJM [id number]) OT Summary Assessment and Plan Potential Analytic Complexity at Evaluation Low Summary Assessment Summary Low complexity OT assessment completed with pt and present. confirms that pt appears to be close to her baseline level of self care function. very comfortable with pt's care, and pt less anxious when he is here. They have all necessary lower body dressing equipt and bathroom safety equipt at home. Pt plans to return home today with 24 hr assist from supportive capable . They do not feel any HH OT is needed, but would like HH PT to increase overall strength/ endurance. Frequency of Treatment Frequency Of Treatment Discharge Discharge Recommendations OT Discharge Recommendations Home with 04/09 Assist Home Equipment Needs none
--- NOTE | 2018-01-21 13:50 | CM.DANOTE ---
DCP/continued: Reviewed chart. Received referral from RN indicating that patient/spouse requesting to meet with IT APPLICATION ADMINISTRATOR. Per MD, in AM rounds patient okay to d/c today. Current therapy recommendation is SNF. Patient refused as of yesterday 01-20-18. Met with patient and spouse/Louie explained role. Patient alert and oriented at time of visit. Patient continues to deny going to SNF for short rehab stay. Spouse in agreement that he can care for patient in the home. Patient agreeable to HH. Order obtained for for RN/PT/IT APPLICATION ADMINISTRATOR. Home health agency choices provided and first choice is [facility]. [facility] reports that [employer] has no current openings. Therefore, spoke with patient and she is agreeable to use [facility]. IT APPLICATION ADMINISTRATOR obtained orders, F2F completed. Asked [facility] to fax and call referral to [facility]. Per [facility] referral accepted. Services expected to begin within 48hrs of discharge. Patient and spouse provided with brochure. In addition, to the above. Patient reports that she has had difficulty with mental health. Spouse agrees. Patient requesting resources for counselor whom either accepts Medicare or private pay. Provided patient with several resources for private counselors. P: Home today. Resources for mental health providers provided. In addition, home health arranged through [facility]. HIRO Gerber Discharge Planning/Care Management CM Discharge Assessment Start: 01/19/18 14:42 Freq: Status: Active Protocol: Document 01/19/18 14:42 VICKY (Rec: 01/19/18 14:52 VICKY [id number]) Discharge Planning Assessment Assigned Substance Abuse Nurse HIRO Harris DPOA/Assigned Designee Name Louie Dee, spouse Contact Information [phone], cell Advance Directives? Yes: HERE IN MEDICAL RECORDS History Provided By Patient Prior Living Arrangements House Household Members spouse Type of transporation used prior to Relies on Others admit Comment Met w/pt, explained role. Pt very juan miguel in all answers and does not elaborate unless this IT APPLICATION ADMINISTRATOR prompts. Pt lives w/her spouse Louie, she states he does everything. Pt gets up and dresses herself daily, then watches some TV per her report. Pt admits to not wanting to go out about and do anything for about three years. Pt expects to stay in the hospital this evening and suggests to this IT APPLICATION ADMINISTRATOR to speak w/her when he gets here. Pt shares she has been through 3 surgeries. Pt says she has two children and her has two children but they never see them because they're too busy. Relayed conversation to JOELLE Boogie; she explains pt likely has mild dementia ? Spouse will not be back until this evening, RN encouraged this IT APPLICATION ADMINISTRATOR to make contact w/him . PT/OT evals are pending. Following closely. Independent with ADL's No Is patient alert and oriented? No: Mild dementia Needs Assistance With Bathing Grooming Meal Prep Toileting Managing Medications Home Chores / Shopping Patient/Family Preference Home with Home Health Comment Therapy evals pending. Discharge Plan Home Transportation Arrangement Family SNF/HH Preference Can't remember name of HH agency used in the past, maybe [facility] ? Whiteboard Updated in Patient Room with Yes name and ext. # of Substance Abuse Nurse Review Status In Process
--- NOTE | 2018-01-21 14:03 | PT.IPTN ---
Current Diagnoses Unspecified diastolic (congestive) heart failure (01/18/18) Physical Therapy Treatment Note M2 PT-IP Current Condition Start: 01/19/18 15:18 Freq: NEEDED Status: Active Protocol: Document 01/20/18 09:01 RCC (Rec: 01/20/18 09:14 RCC [id number]) Physical Therapy Current Condition Current Condition Evaluation Date 01/20/18 Treatment Diagnosis generalized weakness, impaired gait and activity tolerance, impaired balanc Precautions Other Precautions pt with high fear of falling, gets shaky when anxious M3 PT-IP Subjective Start: 01/19/18 15:18 Freq: NEEDED Status: Active Protocol: Document 01/21/18 10:32 (Rec: 01/21/18 12:59 [email or web address]) Subjective Physical Therapy Visit Type Type Treatment Note Visit Start Time 10:32 Visit Stop Time 11:11 Total Visit Minutes 59 Number of CASK MAKER Visits 0 Physical Therapy Visit Comments Patient Comments Pt agreeable to mobilize with PT. Patient Goals Pt wants to d/c home with her . Therapy Pain Assessment Pain When Pain Assessed During Mobility Pain Present Pain Present Pain Reported Location Lower Back Scale Used low and constant Pain Management Techniques Modification of Treatment Re-positioning Timing of Activity with Medications M4 PT-IP Mobility and Gait Start: 01/19/18 15:18 Freq: NEEDED Status: Active Protocol: Document 01/21/18 10:32 (Rec: 01/21/18 12:59 [email or web address]) PT-Bed Mobility Assessment Supine to Sit Supine to Sit Standby Assistance Sit to Supine Sit to Supine Standby Assistance Scooting Scooting to Edge of Bed Standby Assistance Scooting Up and Down in Bed Standby Assistance PT-Transfer Assessment Sit to and From Stand Sit to and from Stand Contact Guard Assistance Use of Upper Extremities Equipment Transfer Assistive Device Gait Belt 4 Wheeled Walker Orthotic/Prosthetic Devices or Brace: No Transfers Transfer Destination Bed Chair Transfer Technique Ambulates between surfaces Comments Mobility Comments Supine/resting BP 110/59 HR 85 . Sit <> supine is SBA. Pt slow, but coordinated. Sit <> stand is CGA with 4ww, min cues for hand placement, able to manage 4ww without cues. O2 drops to 88% on room air and pt requires frequent cues for deep breathing to maintain O2 > 90%. Gait Assessment Gait Gait Assistance Required: Standby Assistance Contact Guard Assist 1 Person Assist Distance (Feet) 15 Able to Maintain Weight Bearing Status Yes During Gait Assistive Devices Assistive Device Gait Belt 4 Wheeled Walker Orthotic/Prosthetic Devices or Brace: No Gait Deviations General Gait Pattern Decreased Stride Length Decreased Feet Clearance Flexed Trunk Narrow Based Gait Factors Limiting Gait Function Factors Limiting Gait Function Decreased Activity Tolerance Decreased Strength Limited Range of Motion Comments Gait Comments Pt ambulates 15 + 15 + 15 ft in room with 4ww. She demonstrates significant variabilitiy with step pattern (width, foot clearance) and did have one episode of slight BLE shaking which required a breif seated rest. She is able to correct gait partially with cues, but then forgets to breathe. She is noted to take small gasping breaths when not cued for deep breathing. M5 PT-IP Objective Assessments Start: 01/19/18 15:18 Freq: NEEDED Status: Active Protocol: Document 01/21/18 10:32 (Rec: 01/21/18 12:59 [email or web address]) Orientation Orientation/Cognition Level of Alertness Alert M6 PT-IP Treatment Start: 01/19/18 15:18 Freq: NEEDED Status: Active Protocol: Document 01/21/18 10:32 (Rec: 01/21/18 12:59 [email or web address]) Physical Therapy Treatment Education Education Provided Safety Other Treatments Other Treatment Performed Caregiver training included safeguarding during sit <> stand and ambulation, as well as donning/doffing of gait belt. Caregiver/spouse was able to demonstrate the above items safely with min cues. Pt and spouse both state feeling quite comfortable with these concepts. Pt appears less anxious when assist is provided by spouse. M7 PT-IP Assessment and Plan Start: 01/19/18 15:18 Freq: NEEDED Status: Active Protocol: Document 01/21/18 10:32 (Rec: 01/21/18 12:59 [email or web address]) PT Summary Assessment and Plan Potential Rehabilitation Potential Good Summary Impairments Strength Balance Bed Mobility Transfers Gait Activity Tolerance Assessment Summary Pt with decreased activity tolerances and requiring CGA with ambulation. Activity tolerance does appear to be highly related to her fear of falling. Her spouse was present during part of the session and demonstrated safe assist of pt. Furthermore, the pt appears to be less agitated when assisted by spouse. When the pt is medically ready, recommend d/c to home with 24/7 assist of spouse and HH to improve pt mobilities and balance. Goals Bed Mobility Goal Independent Transfer Goal Independent Gait Goal Standby Assistance Front Wheel Walker Gait Distance 50 Days to Meet Goals 2 Frequency of Treatment Frequency Of Treatment Twice a Day Treatment Plan Physical Therapy Treatment Plan Bed Mobility Training Transfer Training Gait Training Therapeutic Exercise Balance Retraining Discharge Planning Other Recommendations and Next Treatment prog. gait, sit<->stand, Focus confidence with standing balance- monitor O2 Recommendations To Nursing Amount of Assist Needed 1 Person Assist Discharge Recommendations PT Discharge Recommendations Home with 24/7 Assist Home Health
--- NOTE | 2018-01-21 14:04 | PC.NURSE ---
Pt has jackson removed and has had two voids since then. Pt dressed and ready for dc home. Given paperwork and scripts with present.
--- NOTE | 2018-01-21 14:35 | PC.NURSE ---
Pt taken by wheelchair to ER entrance with spouse. Scripts and paperwork with pt. IV removed.
== END 2018-01-21 14:36 | disposition home health service (06) | DRG 292 ==
LOC: ED 20:57 → AC 21:11
PROVIDERS: Hospitalist; Admitting Provider Nurse Practitioner Gerontology; Emergency Provider Nurse Practitioner Family; PCP Internal Medicine; Visit Provider Nurse Practitioner Gerontology
DX: I50.33 Acute on chronic diastolic (congestive) heart failure (principal); N39.0 Urinary tract infection, site not specified; F11.20 Opioid dependence, uncomplicated; G47.33 Obstructive sleep apnea (adult) (pediatric); B96.20 Unspecified Escherichia coli [E. coli] as the cause of diseases classified elsewhere; I48.2 Chronic atrial fibrillation; Z79.01 Long term (current) use of anticoagulants; G89.29 Other chronic pain; W18.30XA Fall on same level, unspecified, initial encounter; F32.9 Major depressive disorder, single episode, unspecified; F41.9 Anxiety disorder, unspecified; M54.9 Dorsalgia, unspecified; M25.551 Pain in right hip; M25.552 Pain in left hip; R53.1 Weakness
CPT/HCPCS: 36415; 51701; 70450; 71045; 71046; 72125; 72131; 73522; 80053; 80069; 81001; 81003; 81015; 82550; 83605; 83690; 83735; 83880; 84145; 84484; 85025; 85610; 87040; 87077; 87086; 87186; 87633; 93005; 93010; 93306; 94760; 94762; 96374; 97110; 97116; 97162; 97165; 97530; 99285; J1940; J1956; J2405

== ENCOUNTER 2018-04-15 14:43 | Emergency (ER) | payer MEDICARE, OTHER, SELFPAY ==
[2018-01-18 21:54] VITALS: BMI 28.3
[2018-04-15] VITALS (8 sets, daily range): BP systolic 116–128; BP diastolic 72–87; PULSE 71–79; RESP 17–20; TEMP 36.3; O2SAT 85–98; BMI 28.2
--- NOTE | 2018-04-15 15:27 | ED.SOB ---
HPI - SOB/Dyspnea General Chief Complaint: Shortness of Breath/Dyspnea Stated Complaint: Dizziness and nausea x1 week Time Seen by Provider: 04/15/18 15:27 Source: patient Mode of arrival: ambulatory Limitations: no limitations History of Present Illness The patient has been ill for about 1 week. She complains of dyspnea, but has no fever or productive cough. She denies orthopnea. She is not experiencing chest pain. She is eating and drinking normally. She has a history of CHF, she notices a little edema around her ankles. She is anticoagulated for atrial fib. She has not experienced fever or chills. She does have mild abdominal discomfort, but denies dysuria. She has a history of UTI. Related Data Home Medications Medication Instructions Recorded Confirmed duloxetine 60 mg PO BID #0 03/13/16 04/15/18 ondansetron HCl 4 mg PO PRN PRN #0 03/13/16 04/15/18 oxycodone 5 mg PO Q6H PRN #0 03/13/16 04/15/18 sennosides [senna] 1 tab PO TID #0 03/13/16 04/15/18 cetirizine 10 mg PO DAILY #0 11/02/16 04/15/18 cyanocobalamin (vitamin B-12) 1,000 mcg PO QPM #0 11/02/16 04/15/18 fentanyl 1 patch TOPICAL Q72H #0 12/26/16 04/15/18 latanoprost 1 drp OPHTH BEDTIME #0 02/03/17 04/15/18 warfarin 5 mg tablet 5 mg PO QMWF 11/15/17 04/15/18 Vitamin D3 50 mcg PO DAILY 01/18/18 04/15/18 acetaminophen 500 mg PO PRN PRN 01/18/18 04/15/18 cannabidiol (CBD) extract 50 mg MISCELLANEOUS PRN PRN 01/18/18 04/15/18 diltiazem HCl 180 mg PO BID 01/18/18 04/15/18 docusate calcium 240 mg PO QPM 01/18/18 04/15/18 lidocaine 1 patch TOPICAL PRN PRN 01/18/18 04/15/18 metoprolol succinate 100 mg PO DAILY 01/18/18 04/15/18 pantoprazole 40 mg PO BID 01/18/18 04/15/18 polyethylene glycol 3350 [Miralax] 2 tsp PO DAILY 01/18/18 04/15/18 timolol maleate 1 drp EYE-BOTH BID 01/18/18 04/15/18 torsemide 10 mg PO DAILY 01/18/18 04/15/18 warfarin 2.5 mg PO SUTUTHSA 01/18/18 04/15/18 guaifenesin 400 mg PO DAILY 04/15/18 04/15/18 melatonin 3 mg PO BEDTIME 04/15/18 04/15/18 mirtazapine 15 mg PO BEDTIME 04/15/18 04/15/18 Previous Rx's Medication Instructions Recorded clobetasol 0.05 % topical ointment 1 applictn TOPICAL .COMPLEX #30 12/17/17 gram cephalexin [Keflex] 500 mg PO Q8H 7 Days #21 cap 04/15/18 Allergies Allergy/AdvReac Type Severity Reaction Status Date / Time Penicillins [PENICILLINS] Allergy Severe RASH/SWELLI Verified 04/15/18 14:54 NG sulfite [SULFITE] Allergy Severe GI UPSET Verified 04/15/18 14:54 gabapentin [GABAPENTIN] AdvReac Unknown LOW BP, Verified 04/15/18 14:54 CONFUSION pregabalin [From LYRICA] AdvReac Unknown LOW BP, Verified 04/15/18 14:54 CONFUSION Review of Systems Review of Systems ROS Unobtainable: All systems reviewed & are unremarkable except as noted in HPI and below Constitutional Denies chills, Denies fever(s), Reports lethargy and Denies weakness Eyes Denies change in vision, Denies eye discharge, Denies irritation and Denies loss of vision ENT Ears, Nose, Mouth, and Throat: Denies change in voice, Denies neck pain and Denies sore throat Cardiovascular Denies chest pain, Denies irregular heart rhythm, Denies lightheadedness, Denies palpitations, Reports dyspnea and Denies orthopnea Respiratory Denies cough, Reports dyspnea, Denies wheezing and Reports other (No orthopnea.) Gastrointestinal Gastrointestinal: Reports abdominal pain, Denies change in bowel habits, Denies diarrhea, Denies nausea and Denies vomiting Musculoskeletal Denies neck pain Integumentary/Breasts Denies pruritus, Denies erythema, Denies rash and Denies wounds Neurologic Denies loss of vision and Denies weakness Endocrine Denies palpitations Allergic/Immunologic Denies wheezing [facility] Medical History Obstructive sleep apnea of adult (Chronic ~2004) Snoring (Chronic ~2004) Chronic a-fib (Acute) Surgical History History of cataract removal with insertion of prosthetic lens History of cataract removal with insertion of prosthetic lens History of knee replacement History of thyroidectomy Status post appendectomy Status post breast reduction Status post colonoscopy Status post hysterectomy Social History marital status: household members: spouse lives independently: Yes Smoking Status: Never smoker alcohol intake: current Social History marital status: household members: spouse lives independently: Yes Smoking Status: Never smoker alcohol intake: current Exam Initial Vital Signs Initial Vital Signs: Vital Signs Temperature 97.4 F L 04/15/18 14:54 Pulse Rate 71 04/15/18 14:54 Respiratory Rate 20 04/15/18 14:54 Blood Pressure 120/72 04/15/18 14:54 Pulse Oximetry 85 L 04/15/18 14:54 Const General: cooperative and well developed Nutritional Appearance: well nourished Orientation: alert, awake, oriented x3 and not confused HENMT Mouth: oral mucosae normal Throat: posterior oropharynx normal, tonsils normal and uvula midline Neck Neck: No JVD Lymphatic: No lymphadenopathy Chest Chest: normal inspection of the chest Resp Effort & Inspection: normal respiratory effort, able to speak in complete sentences, no respiratory distress and no use of accessory muscles Auscultation: clear to auscultation bilaterally, no rales, no rhonchi and no wheezes Cardio Rhythm: abnormal rhythm irregularly irregular Heart Sounds: S1 normal, S2 normal, no gallops and no murmurs GI Inspection: non-distended Palpation: soft, no hepatosplenomegaly, No guarding, No pulsatile mass and No tender Auscultation: normal bowel sounds Back/Spine/Pelvis Back: No CVA tenderness Skin General: no rashes or lesions noted, No jaundice and No petechiae Neuro General: alert, oriented x3, gait normal and no focal motor deficits Speech: speech normal Extrem General: full ROM, no calf tenderness and edema (Mild bilaterally) Psych Appearance: well kempt Mental Status: mental status grossly normal Attitude: cooperative Thought Content: abnormal Judgment: judgment not good Course Orders Ordered: Discontinued Medications Albuterol/Ipratropium (Duoneb) 3 ml INH NOW ONE Stop: 04/15/18 14:57 Last Admin: 04/15/18 14:58 Dose: Not Given Furosemide (Lasix) 40 mg IV NOW ONE Stop: 04/15/18 16:38 Last Admin: 04/15/18 16:59 Dose: 40 mg Vital Signs - 8 hr 04/15/18 14:54 04/15/18 14:56 04/15/18 16:23 Temperature 97.4 F L Pulse Rate 71 72 Respiratory Rate 20 18 Blood Pressure 120/72 Blood Pressure [Left Arm] 120/82 Pulse Oximetry 85 L 95 95 04/15/18 17:19 04/15/18 18:05 04/15/18 19:00 Temperature Pulse Rate 78 79 74 Respiratory Rate 18 18 18 Blood Pressure Blood Pressure [Left Arm] 119/77 127/87 128/78 Pulse Oximetry 94 97 98 MDM - SOB/Dyspnea Lab Data Result diagrams: 04/15/18 15:11 04/15/18 15:11 Lab Results 04/15/18 04/15/18 04/15/18 Range/Units 15:11 15:11 15:11 WBC 11.5 H (4.5-11.0) X10^3/uL RBC 4.58 (4.0-5.2) X10^6/uL Hgb 12.7 (12.0-16.0) g/dL Hct 40.3 (36-46) % MCV 87.9 (80-100) fL MCH 27.8 (26-34) PG MCHC 31.6 (30-36) % RDW 16.4 H (11.6-14.8) % Plt Count 254 (150-400) X10^3/uL Neut % (Auto) 70.9 (50-75) % Lymph % (Auto) 18.2 L (25-40) % [place] % (Auto) 7.0 (3-14) % Eos % (Auto) 3.1 (2-4) % Baso % (Auto) 0.8 (0-2) % Neut # (Auto) 8200 H (8597-8363) /uL Lymph # (Auto) 2100 (6862-4430) /uL [place] # (Auto) 800 (0-900) /uL Eos # (Auto) 400 (0-450) /uL Baso # (Auto) 100 (0-100) /uL PT (10.1-12.7) SECONDS INR (0.9-1.3) APTT (26.4-36.2) SECONDS D-Dimer 902 H (<230) ng/mL Sodium 138 (137-145) mmol/L Potassium 4.8 (3.4-5.1) mmol/L Chloride 99 (98-107) mmol/L Carbon Dioxide 29 (22-32) mmol/L BUN 19 H (7-17) mg/dL Creatinine 0.90 (0.52-1.04) mg/dL Estimated GFR > 60.0 (>60) mL/min BUN/Creatinine Ratio 21.1 (6-22) Glucose 167 H (80-110) mg/dL Lactate (0.7-2.1) mmol/L Calcium 8.7 (8.4-10.2) mg/dL Magnesium 2.0 (1.6-2.3) mg/dL Total Creatine Kinase 28 L (30-135) U/L CK-MB (CK-2) TNP CK-MB (CK-2) Rel Index TNP Troponin I < 0.012 (0.01-0.034) ng/mL B-Natriuretic Peptide 490 H (<100) Procalcitonin (<0.5) ng/mL Urine RBC Urine WBC Urine Bacteria Ur Culture Indicated? 04/15/18 04/15/18 04/15/18 Range/Units 15:11 15:11 15:11 WBC (4.5-11.0) X10^3/uL RBC (4.0-5.2) X10^6/uL Hgb (12.0-16.0) g/dL Hct (36-46) % MCV (80-100) fL MCH (26-34) PG MCHC (30-36) % RDW (11.6-14.8) % Plt Count (150-400) X10^3/uL Neut % (Auto) (50-75) % Lymph % (Auto) (25-40) % [place] % (Auto) (3-14) % Eos % (Auto) (2-4) % Baso % (Auto) (0-2) % Neut # (Auto) (9893-3610) /uL Lymph # (Auto) (1482-0647) /uL [place] # (Auto) (0-900) /uL Eos # (Auto) (0-450) /uL Baso # (Auto) (0-100) /uL PT 39.4 H (10.1-12.7) SECONDS INR 3.3 H (0.9-1.3) APTT 57 H D (26.4-36.2) SECONDS D-Dimer (<230) ng/mL Sodium (137-145) mmol/L Potassium (3.4-5.1) mmol/L Chloride (98-107) mmol/L Carbon Dioxide (22-32) mmol/L BUN (7-17) mg/dL Creatinine (0.52-1.04) mg/dL Estimated GFR (>60) mL/min BUN/Creatinine Ratio (6-22) Glucose (80-110) mg/dL Lactate 2.0 (0.7-2.1) mmol/L Calcium (8.4-10.2) mg/dL Magnesium (1.6-2.3) mg/dL Total Creatine Kinase (30-135) U/L CK-MB (CK-2) CK-MB (CK-2) Rel Index Troponin I (0.01-0.034) ng/mL B-Natriuretic Peptide (<100) Procalcitonin < 0.05 (<0.5) ng/mL Urine RBC Urine WBC Urine Bacteria Ur Culture Indicated? 04/15/18 04/15/18 Range/Units 15:28 17:20 WBC (4.5-11.0) X10^3/uL RBC (4.0-5.2) X10^6/uL Hgb (12.0-16.0) g/dL Hct (36-46) % MCV (80-100) fL MCH (26-34) PG MCHC (30-36) % RDW (11.6-14.8) % Plt Count (150-400) X10^3/uL Neut % (Auto) (50-75) % Lymph % (Auto) (25-40) % [place] % (Auto) (3-14) % Eos % (Auto) (2-4) % Baso % (Auto) (0-2) % Neut # (Auto) (7957-8517) /uL Lymph # (Auto) (9571-7430) /uL [place] # (Auto) (0-900) /uL Eos # (Auto) (0-450) /uL Baso # (Auto) (0-100) /uL PT (10.1-12.7) SECONDS INR (0.9-1.3) APTT (26.4-36.2) SECONDS D-Dimer (<230) ng/mL Sodium (137-145) mmol/L Potassium (3.4-5.1) mmol/L Chloride (98-107) mmol/L Carbon Dioxide (22-32) mmol/L BUN (7-17) mg/dL Creatinine (0.52-1.04) mg/dL Estimated GFR (>60) mL/min BUN/Creatinine Ratio (6-22) Glucose (80-110) mg/dL Lactate (0.7-2.1) mmol/L Calcium (8.4-10.2) mg/dL Magnesium (1.6-2.3) mg/dL Total Creatine Kinase (30-135) U/L CK-MB (CK-2) CK-MB (CK-2) Rel Index Troponin I (0.01-0.034) ng/mL B-Natriuretic Peptide Cancelled (<100) Procalcitonin (<0.5) ng/mL Urine RBC TNP Urine WBC TNP Urine Bacteria TNP Ur Culture Indicated? Specimen cultured Urine Dip Bedside Urine Glucose Negative Bedside Urine Bilirubin + 1 Bedside Urine Ketone - Negative Urine Specific [place] 1.030 Bedside Urine Occult Blood - Negative Bedside Urine pH 6.0 Bedside Urine Protein + 30 Bedside Urine Urobilinogen +/- 1mg Bedside Urine Nitrite - Negative Bedside Urine Leukocytes + [address] scan - chest: Radiologist's impression: 209 Trip Patel MD Find Patient Imaging Nathaly Dee 82 F 1935 ACTIVITY DATE EXAM STATUS AUTHOR 04/15/18 18:40 Signed Tyler Daniel 04/15/18 18:[address] [address] [address] Scan Report Signed Patient: Nathaly Dee MMR#: [id number] : [id number]:[id number] Age/Sex: 82 / FDate of Service: 04/15/18 Loc: ED Accession Number: [id number] Procedure: CT angio chest PE protocol Ordering Provider: Trip Patel M.D. PROCEDURE: CT ANGIO CHEST PE PROTOCOL INDICATIONS: dyspnea TECHNIQUE: After the administration of intravenous contrast, 2 mm thick sections acquired from the pulmonary apices to the posterior costophrenic angles. 3-dimensional maximum intensity projection (MIP) coronal and sagittal reformats were then acquired through the thorax. For radiation dose reduction, the following was used: automated exposure control, adjustment of mA and/or kV according to patient size. COMPARISON: None. FINDINGS: Image quality: Excellent. Pulmonary arteries: Pulmonary arteries are prominent in size, and demonstrate no intraluminal filling defects to suggest central pulmonary embolism. Lungs and pleura: Extensive patchy groundglass opacities are seen scattered throughout bilateral lung fierro. Trace bilateral pleural effusion is noted. Dependent atelectasis/small infiltrates are noted in posterior aspect of bilateral lung bases. There is no pneumothorax. Central and peripheral airways are patent. Mediastinum: Heart size is markedly enlarged, without pericardial effusion. There is mediastinal and bilateral hilar lymphadenopathy measures up to 2.2 cm in short axis diameter a right paratracheal space Thoracic aorta is normal in caliber and enhancement. Atherosclerotic ossifications are noted throughout the mid vessels and thoracic aorta. Esophagus is normal in caliber, with with a small out hiatal hernia. Bones and chest wall: No suspicious bony lesions. Ribs and thoracic spine appear intact throughout. Thyroid gland is enlarged with ill-defined calcification in right thyroid lobe, which may represent calcified thyroid nodule. No axillary or supraclavicular adenopathy. Abdomen: Small amount of ascites fluid is seen in upper abdomen surrounding liver and spleen. IMPRESSION: 1. No evidence of pulmonary embolism. 2. Marked cardiomegaly, no pericardial effusion. Prominent size of the pulmonary arteries concerning for pulmonary vasculature hypertension. 3. Trace bilateral pleural effusion with bibasilar small infiltrates/atelectasis. Extensive hazy groundglass opacities scattered throughout bilateral lung fierro which may indicate pulmonary edema versus pneumonitis. No pneumothorax. 4. Prominent mediastinal and hilar lymph nodes suggestive of reactive inflammatory lymphadenopathy. 5. Small amount of ascites fluid in the visualized upper abdomen. Dictated by: Tyler Daniel M.D. on 04/15/2018 at 19:08 Approved by: Tyler Daniel M.D. on 04/15/2018 at 19:17 Chest x-ray: Radiologist's impression: [address] [address] XRay Report Signed Patient: Nathaly Dee MMR#: [id number] : [id number]:[id number] Age/Sex: 82 / FDate of Service: 04/15/18 Loc: ED Accession Number: [id number] Procedure: XR chest 1V Ordering Provider: Trip Patel M.D. PROCEDURE: XR CHEST 1V INDICATIONS: increased shortness of breath TECHNIQUE: One view of the chest was acquired. COMPARISON: [facility], , XR CHEST 1V, 01/20/2018, 6:33. FINDINGS: Surgical changes and devices: Post-fusion hardware in lower cervical spine is seen. Lungs and pleura: There is blunting of left costophrenic angle suggestive of trace left pleural effusion. Chronic emphysematous changes are seen. No gross pneumothorax. No definite focal infiltrate. Mediastinum: Mediastinal contours appear normal. Heart size is enlarged. Bones and chest wall: No suspicious bony lesions. Overlying soft tissues appear unremarkable. IMPRESSION: Cardiomegaly and COPD. Trace left pleural effusion. No definite focal infiltrate. Dictated by: Tyler Daniel M.D. on 04/15/2018 at 18:19 Approved by: Tyler Daniel M.D. on 04/15/2018 at 18:20 ECG Data Attestation: I personally reviewed and interpreted this ECG as follows: (AFib rate 70 bpm. RVH. IVCD. No acute ST elevation.) Discharge Plan Departure Patient Disposition: Home Clinical Impression: Urinary tract infection Qualifiers: Urinary tract infection type: acute cystitis Hematuria presence: without hematuria Qualified Code(s): N30.00 - Acute cystitis without hematuria CHF (congestive heart failure) Qualifiers: Heart failure type: unspecified Heart failure chronicity: chronic Qualified Code(s): I50.9 - Heart failure, unspecified Discharge Date/Time: 04/15/18 20:13 Interventions: ED Discharge Assessment Last Done: 04/15/18 20:12 Instructions: DI for Urinary Tract Infection (UTI) Activity Restrictions/Additional Instructions: We have mild CHF worsening. Continue with her current medications. Take the antibiotics as prescribed. Follow up with her doctor in 2-3 days. Return here if worse. Prescriptions: New cephalexin [Keflex] 500 mg capsule 500 mg PO Q8H 7 Days Qty: 21 RF: 0 No Action oxycodone 5 MG tablet 5 mg PO Q6H PRN (Reason: pain) Qty: 0 RF: 0 duloxetine 60 MG capsule,delayed release(DR/EC) 60 mg PO BID Qty: 0 RF: 0 ondansetron HCl 4 MG tablet 4 mg PO PRN PRN (Reason: Nausea) Qty: 0 RF: 0 sennosides [senna] 8.6 MG tablet 1 tab PO TID Qty: 0 RF: 0 cetirizine 10 MG tablet 10 mg PO DAILY Qty: 0 RF: 0 cyanocobalamin (vitamin B-12) 1,000 MCG tablet extended release 1,000 mcg PO QPM Qty: 0 RF: 0 fentanyl 25 MCG/HR patch 72 hour 1 patch Topical Q72H Qty: 0 RF: 0 latanoprost 0.005 % drops 1 drp OPHTH BEDTIME Qty: 0 RF: 0 clobetasol 0.05 % ointment 1 applictn Topical .COMPLEX Qty: 30 RF: 0 torsemide 20 mg tablet 10 mg PO DAILY RF: 0 lidocaine 4 % Adhesive Patch,Medicated 1 patch TOPICAL PRN PRN (Reason: pain) RF: 0 diltiazem HCl 180 mg capsule,extended release 24hr 180 mg PO BID RF: 0 docusate calcium 240 mg Capsule 240 mg PO QPM RF: 0 acetaminophen 500 mg Tablet 500 mg PO PRN PRN (Reason: pain) RF: 0 warfarin 5 mg tablet 2.5 mg PO SUTUTHSA RF: 0 timolol maleate 0.5 % drops 1 drp EYE-BOTH BID RF: 0 Vitamin D3 50 mcg 50 mcg PO DAILY RF: 0 cannabidiol (CBD) extract 50 mg miscellaneous PRN PRN (Reason: pain) RF: 0 metoprolol succinate 100 MG tablet extended release 24 hr 100 mg PO DAILY RF: 0 pantoprazole 40 MG tablet,delayed release (DR/EC) 40 mg PO BID RF: 0 polyethylene glycol 3350 [Miralax] 119 GM powder 2 tsp PO DAILY RF: 0 melatonin 3 mg Tablet 3 mg PO BEDTIME RF: 0 mirtazapine 15 mg tablet 15 mg PO BEDTIME RF: 0 guaifenesin 400 mg Tablet 400 mg PO DAILY RF: 0 warfarin 5 mg tablet 5 mg PO QMWF RF: 0 Referrals: Arturo Mcdonald MD [Primary Care Provider] - ED Cosign/Signout Cosign ED Attending Cosignature Attestation: I was present in the ER at the time this patient's care. I was available for verbal consultation or to see the patient directly if requested. I agree with the assessment and management plan.
[2018-04-15 15:44] LABS: BUN Creatinine Ratio 21.1 (6-22); Blood Urea Nitrogen 19 mg/dL (7-17); Calcium 8.7 mg/dL (8.4-10.2); Carbon Dioxide 29 mmol/L (22-32); Chloride 99 mmol/L (98-107); Creatine Kinase 28 U/L (30-135); Estimated Glomerular Filt Rate > 60.0 mL/min (>60); Glucose 167 mg/dL (80-110); Potassium 4.8 mmol/L (3.4-5.1); Sodium 138 mmol/L (137-145)
[2018-04-15 15:47] LABS: HEMOLYSIS 60 (0-50)
[2018-04-15 15:56] LABS: Troponin I < 0.012 ng/mL (0.01-0.034)
[2018-04-15 16:00] LABS: B Type Natriuretic Peptide 490 (<100)
[2018-04-15 16:01] LABS: Procalcitonin < 0.05 ng/mL (<0.5)
[2018-04-15 16:03] LABS: D Dimer 902 ng/mL (<230)
[2018-04-15 16:11] LABS: Add Manual Diff / Slide Review NO; Basophils Absolute Auto 100 /uL (0-100); Basophils Percent Auto 0.8 % (0-2); Eosinophils Absolute Auto 400 /uL (0-450); Eosinophils Percent Auto 3.1 % (2-4); Hematocrit 40.3 % (36-46); Hemoglobin 12.7 g/dL (12.0-16.0); Lymphocytes Absolute Auto 2100 /uL (1100-4500); Lymphocytes Percent Auto 18.2 % (25-40); Mean Corpuscular HGB Conc 31.6 % (30-36); Mean Corpuscular Hemoglobin 27.8 PG (26-34); Mean Corpuscular Volume 87.9 fL (80-100); Monocytes Absolute Auto 800 /uL (0-900); Neutrophils Absolute Auto 8200 /uL (1500-7000); Neutrophils Percent Auto 70.9 % (50-75); Platelet Count 254 X10^3/uL (150-400); Red Blood Cell Count 4.58 X10^6/uL (4.0-5.2); Red Cell Distribution Width 16.4 % (11.6-14.8); White Blood Cell Count 11.5 X10^3/uL (4.5-11.0)
[2018-04-15 16:12] LABS: INR 3.3 (0.9-1.3); PTT Partial Thromboplastin Tim 57 SECONDS (26.4-36.2); Prothrombin Time 39.4 SECONDS (10.1-12.7)
[2018-04-15] MEDS: FUROSEMIDE 40 MG/4 ML VIAL IV (16:59)
[2018-04-15 17:42] LABS: Culture Indicated Urine Specimen Cultured
--- NOTE | 2018-04-15 18:04 | DI.RAD.S_ITS ---
PROCEDURE: XR CHEST 1V INDICATIONS: increased shortness of breath TECHNIQUE: One view of the chest was acquired. COMPARISON: Located [facility], CR, XR CHEST 1V, 01/20/2018, 6:33. FINDINGS: Surgical changes and devices: Post-fusion hardware in lower cervical spine is seen. Lungs and pleura: There is blunting of left costophrenic angle suggestive of trace left pleural effusion. Chronic emphysematous changes are seen. No gross pneumothorax. No definite focal infiltrate. Mediastinum: Mediastinal contours appear normal. Heart size is enlarged. Bones and chest wall: No suspicious bony lesions. Overlying soft tissues appear unremarkable. IMPRESSION: Cardiomegaly and COPD. Trace left pleural effusion. No definite focal infiltrate. Dictated by: Tyler Daniel M.D. on 04/15/2018 at 18:19 Approved by: Tyler Daniel M.D. on 04/15/2018 at 18:20
--- NOTE | 2018-04-15 18:40 | DI.CT.S_ITS ---
PROCEDURE: CT ANGIO CHEST PE PROTOCOL INDICATIONS: dyspnea TECHNIQUE: After the administration of intravenous contrast, 2 mm thick sections acquired from the pulmonary apices to the posterior costophrenic angles. 3-dimensional maximum intensity projection (MIP) coronal and sagittal reformats were then acquired through the thorax. For radiation dose reduction, the following was used: automated exposure control, adjustment of mA and/or kV according to patient size. COMPARISON: None. FINDINGS: Image quality: Excellent. Pulmonary arteries: Pulmonary arteries are prominent in size, and demonstrate no intraluminal filling defects to suggest central pulmonary embolism. Lungs and pleura: Extensive patchy groundglass opacities are seen scattered throughout bilateral lung fierro. Trace bilateral pleural effusion is noted. Dependent atelectasis/small infiltrates are noted in posterior aspect of bilateral lung bases. There is no pneumothorax. Central and peripheral airways are patent. Mediastinum: Heart size is markedly enlarged, without pericardial effusion. There is mediastinal and bilateral hilar lymphadenopathy measures up to 2.2 cm in short axis diameter a right paratracheal space Thoracic aorta is normal in caliber and enhancement. Atherosclerotic ossifications are noted throughout the mid vessels and thoracic aorta. Esophagus is normal in caliber, with with a small out hiatal hernia. Bones and chest wall: No suspicious bony lesions. Ribs and thoracic spine appear intact throughout. Thyroid gland is enlarged with ill-defined calcification in right thyroid lobe, which may represent calcified thyroid nodule. No axillary or supraclavicular adenopathy. Abdomen: Small amount of ascites fluid is seen in upper abdomen surrounding liver and spleen. IMPRESSION: 1. No evidence of pulmonary embolism. 2. Marked cardiomegaly, no pericardial effusion. Prominent size of the pulmonary arteries concerning for pulmonary vasculature hypertension. 3. Trace bilateral pleural effusion with bibasilar small infiltrates/atelectasis. Extensive hazy groundglass opacities scattered throughout bilateral lung fierro which may indicate pulmonary edema versus pneumonitis. No pneumothorax. 4. Prominent mediastinal and hilar lymph nodes suggestive of reactive inflammatory lymphadenopathy. 5. Small amount of ascites fluid in the visualized upper abdomen. Dictated by: Tyler Daniel M.D. on 04/15/2018 at 19:08 Approved by: Tyler Daniel M.D. on 04/15/2018 at 19:17
--- NOTE | 2018-04-15 20:04 | PC.NURSE ---
Catheter d/c'd. Pt able to assist in walking short amount w/ sat 90% and no increased work of breathing. Feels improved and wants to go home. agreed pt is close to baseline.
== END 2018-04-15 20:13 | disposition home or self-care (01) ==
PROVIDERS: Emergency Provider Emergency Medicine; PCP Internal Medicine
DX: N30.00 Acute cystitis without hematuria (principal); I50.9 Heart failure, unspecified; R42 Dizziness and giddiness; R06.00 Dyspnea, unspecified; I48.2 Chronic atrial fibrillation; R11.0 Nausea; R06.02 Shortness of breath; Z79.01 Long term (current) use of anticoagulants
CPT/HCPCS: 36591; 51701; 71045; 71275; 80048; 81003; 81015; 82550; 83605; 83735; 83880; 84145; 84484; 85025; 85379; 85610; 85730; 87086; 93005; 93010; 96374; 99284; 99285; J1940; Q9967

== ENCOUNTER 2018-06-18 09:47 | Inpatient (IN) | payer MEDICARE, OTHER, SELFPAY ==
[2018-01-18 21:54] VITALS: BMI 28.3
[2018-06-18] VITALS (14 sets, daily range): BP systolic 92–108; BP diastolic 46–70; PULSE 63–86; RESP 14–26; TEMP 36.1–36.7; O2SAT 90–100; BMI 30.9
--- NOTE | 2018-06-18 09:59 | ED.WEAKNESS ---
HPI - Weakness General Chief complaint: Weakness Stated complaint: General weakness, UTI, legs swelling Time Seen by Provider: 06/18/18 09:53 Source: patient Mode of arrival: EMS Limitations: no limitations History of Present Illness HPI Narrative: Patient is an 82-year-old female. History of atrial fibrillation and CHF. Has been on an antibiotic for the past 3 days for urinary tract infection prescribed by her primary provider. She has noted that since then she has had increasing swelling in her lower extremities. Weakness, shaking, inability to urinate fully. States she is just dribbling. No fevers. No shortness of breath or chest pain. She does wear CPAP at night. States that she did not take her Lasix this morning. Related Data Home Medications Medication Instructions Recorded Confirmed ondansetron HCl 4 mg PO TID PRN #0 03/13/16 06/18/18 oxycodone 5 mg PO Q6H PRN #0 03/13/16 06/18/18 sennosides [senna] 2 tab PO TID #0 03/13/16 06/18/18 fentanyl 1 patch TOPICAL Q72H #0 12/26/16 06/18/18 latanoprost 1 drp OPHTH BID #0 02/03/17 06/18/18 warfarin 5 mg tablet 5 mg PO TUFR 11/15/17 06/18/18 acetaminophen 1,000 mg PO Q6H PRN MDD 5 tablets 01/18/18 06/18/18 diltiazem HCl 180 mg PO BID 01/18/18 06/18/18 metoprolol succinate 100 mg PO QPM 01/18/18 06/18/18 pantoprazole 40 mg PO BID 01/18/18 06/18/18 polyethylene glycol 3350 [Miralax] 2 tsp PO DAILY 01/18/18 06/18/18 timolol maleate 1 drp EYE-BOTH BID 01/18/18 06/18/18 torsemide 40 mg PO BID 01/18/18 06/18/18 warfarin 2.5 mg PO SUMOWETHSA 01/18/18 06/18/18 melatonin 3 mg PO BEDTIME 04/15/18 06/18/18 mirtazapine 15 mg PO BEDTIME 04/15/18 06/18/18 cholecalciferol (vitamin D3) 2,000 unit PO DAILY 06/18/18 06/18/18 [Vitamin D3] cyanocobalamin (vitamin B-12) 1,000 mcg PO DAILY 06/18/18 06/18/18 [Vitamin B-12] docusate calcium 240 mg PO DAILY 06/18/18 06/18/18 lidocaine 1 patch TOPICAL DAILY 06/18/18 06/18/18 loratadine [Claritin] 10 mg PO DAILY 06/18/18 06/18/18 sertraline 50 mg PO DAILY 06/18/18 06/18/18 sulfamethoxazole-trimethoprim 1 tab PO BID 06/18/18 06/18/18 Previous Rx's Medication Instructions Recorded clobetasol 0.05 % topical ointment 1 applictn TOPICAL .COMPLEX #30 12/17/17 gram Allergies Allergy/AdvReac Type Severity Reaction Status Date / Time Penicillins [PENICILLINS] Allergy Severe RASH/SWELLI Verified 04/15/18 14:54 NG sulfite [SULFITE] Allergy Severe GI UPSET Verified 04/15/18 14:54 gabapentin [GABAPENTIN] AdvReac Unknown LOW BP, Verified 04/15/18 14:54 CONFUSION pregabalin [From LYRICA] AdvReac Unknown LOW BP, Verified 04/15/18 14:54 CONFUSION Review of Systems Constitutional Reports chills, Reports fatigue, Denies fever(s), Denies frequent falls, Denies headache(s), Reports weakness and Reports weight gain ENT Ears, Nose, Mouth, and Throat: Denies vertigo and Denies headache(s) Cardiovascular Denies chest pain and Denies dyspnea Respiratory Denies dyspnea Gastrointestinal Gastrointestinal: Denies abdominal pain, Denies nausea and Denies vomiting Genitourinary Comments: ?Dribbling? when she urinates Musculoskeletal Denies myalgias and Denies arthralgias Comments: Lower extremity swelling Integumentary/Breasts Denies rash Neurologic Denies confusion, Denies vertigo, Denies frequent falls, Denies headache(s) and Reports weakness Psychiatric Denies confusion Endocrine Reports fatigue Hematologic/Lymphatic Comments: On anticoagulation [facility] Medical History Obstructive sleep apnea of adult (Chronic ~2004) Snoring (Chronic ~2004) Chronic a-fib (Acute) Social History (Reviewed 06/18/18 @ 10:01 by CASSIDY Altamirano marital status: household members: spouse lives independently: Yes Smoking Status: Never smoker alcohol intake: current Exam Initial Vital Signs Initial Vital Signs: Vital Signs Temperature 98.0 F 06/18/18 09:54 Pulse Rate 68 06/18/18 09:54 Respiratory Rate 19 06/18/18 09:54 Blood Pressure 108/70 06/18/18 09:54 Pulse Oximetry 93 06/18/18 09:54 Const General: cooperative, comfortable, well developed, well groomed and No acute distress Orientation: alert, awake and oriented x3 HENMT Head: normal to inspection and normocephalic Resp Effort & Inspection: normal respiratory effort Auscultation: clear to auscultation bilaterally, no crackles, no rales, no rhonchi and no wheezes Cardio Rate: regular rate Rhythm: abnormal rhythm Pulses: radial pulses present GI Inspection: non-distended Palpation: soft Skin Lesions: no lesions Rashes: no rashes Neuro General: alert Cognition: normal cognition Speech: speech normal Extrem General: edema (3+ bilateral pitting edema lower extremities) Psych Appearance: grossly normal and well kempt Scores GCS Adam coma scale eye opening: Spontaneous [place] coma scale verbal response: Orientated [place] coma scale motor response: Obey commands Adam coma scale total score: 15 Course Orders Ordered: ED Orders 06/18/18 10:02 XR chest 1V Stat 06/18/18 10:15 B Type Natriuretic Peptide Stat Complete Blood Count AUTO DIFF Stat Comprehensive Metabolic Panel Stat Lipase Stat Magnesium Routine Partial Thromboplastin Time Stat Prothrombin Time INR Stat Troponin I Stat EKG-12 Lead Stat 06/18/18 11:00 Urinalysis and Microscopic Stat 06/18/18 13:32 Education, smoking cessation ONGOING 06/18/18 13:37 Consult to Occupational Therapy Evaluate & Treat Consult to Physical Therapy Evaluate & Treat 06/18/18 14:35 MRSA PCR Stat 06/18/18 14:53 Urinalysis and Microscopic Routine Acetaminophen (Tylenol) 650 mg PO Q6HR PRN PRN Reason: As Needed for Fever/Mild Pain Al Hydrox/Mg Hydrox/Simethicone (Maalox Plus) 30 ml PO Q6HR PRN PRN Reason: Dyspepsia Bisacodyl (Dulcolax) 10 mg PO DAILY PRN PRN Reason: Constipation Calcium Carbonate (Tums) 1,000 mg PO Q4HR PRN PRN Reason: Dyspepsia Docusate Sodium (Colace) 100 mg PO BID PRN PRN Reason: Constipation Ondansetron HCl (Zofran) 4 mg IV Q8HR PRN PRN Reason: Nausea And Vomiting Sennosides (Senna) 17.2 mg PO BEDTIME PRN PRN Reason: Constipation Discontinued Medications Furosemide (Lasix) 40 mg IV NOW ONE Stop: 06/18/18 11:00 Last Admin: 06/18/18 11:41 Dose: 40 mg Vital Signs - 8 hr 06/18/18 11:00 06/18/18 11:45 06/18/18 12:35 Temperature Pulse Rate 71 74 85 Respiratory Rate 16 18 26 H Blood Pressure Blood Pressure [Left Arm] 106/60 103/57 L 103/58 L Pulse Oximetry 97 97 96 06/18/18 13:00 06/18/18 14:12 06/18/18 14:29 Temperature 97.0 F L Pulse Rate 69 68 86 Respiratory Rate 16 14 16 Blood Pressure 92/62 Blood Pressure [Left Arm] 99/60 92/51 L Pulse Oximetry 97 100 90 L 06/18/18 14:49 06/18/18 15:04 06/18/18 16:00 Temperature 97.6 F Pulse Rate 82 Respiratory Rate 18 20 Blood Pressure 101/64 Blood Pressure [Left Arm] Pulse Oximetry 97 99 96 MDM - Weakness Lab Data Attestation: I reviewed the patient's lab results. Result diagrams: 06/18/18 10:15 06/18/18 10:15 Lab Results 06/18/18 06/18/18 06/18/18 Range/Units 10:15 10:15 10:15 WBC 9.6 (4.5-11.0) X10^3/uL RBC 4.40 (4.0-5.2) X10^6/uL Hgb 12.4 (12.0-16.0) g/dL Hct 38.7 (36-46) % MCV 87.9 (80-100) fL MCH 28.2 (26-34) PG MCHC 32.0 (30-36) % RDW 16.6 H (11.6-14.8) % Plt Count 314 (150-400) X10^3/uL Neut % (Auto) 70.9 (50-75) % Lymph % (Auto) 17.0 L (25-40) % Jasper % (Auto) 9.8 (3-14) % Eos % (Auto) 1.3 L (2-4) % Baso % (Auto) 1.0 (0-2) % Neut # (Auto) 6800 (1458-2488) /uL Lymph # (Auto) 1600 (3967-4514) /uL Jasper # (Auto) 900 (0-900) /uL Eos # (Auto) 100 (0-450) /uL Baso # (Auto) 100 (0-100) /uL PT 25.2 H (10.1-12.7) SECONDS INR 2.1 H (0.9-1.3) APTT 45 H D (26.4-36.2) SECONDS Sodium 136 L (137-145) mmol/L Potassium 4.8 (3.4-5.1) mmol/L Chloride 89 L (98-107) mmol/L Carbon Dioxide 35 H (22-32) mmol/L BUN 32 H (7-17) mg/dL Creatinine 1.40 H (0.52-1.04) mg/dL Estimated GFR 36.1 L (>60) mL/min BUN/Creatinine Ratio 22.9 H (6-22) Glucose 124 H (80-110) mg/dL Calcium 8.4 (8.4-10.2) mg/dL Magnesium (1.6-2.3) mg/dL Total Bilirubin 0.7 (0.2-1.3) mg/dL AST 25 (14-36) IU/L ALT 17 (9-52) IU/L Alkaline Phosphatase 100 (38-126) U/L Troponin I < 0.012 (0.01-0.034) ng/mL B-Natriuretic Peptide 861 H (<100) Total Protein 7.1 (6.3-8.2) g/dL Albumin 3.6 (3.5-5.0) g/dL Globulin 3.5 (1.7-4.1) g/dL Albumin/Globulin Ratio 1.0 (1.0-2.8) Lipase 18 L (23-300) U/L Urine Color Urine Appearance Urine pH (4.5-8.0) Ur Specific [place] (1.000-1.035) Urine Protein (Negative) Urine Glucose (UA) (Negative) g/dL Urine Ketones (NEGATIVE) Urine Occult Blood (Negative) Urine Nitrate (Negative) Urine Bilirubin (NEGATIVE) Urine Urobilinogen (0.2) E.U./dL Ur Leukocyte Esterase (NEGATIVE) Urine RBC (0-5/HPF) Urine WBC (0-5/HPF) Ur Squamous Epith Cells (0-5/HPF) Urine Bacteria (None) Hyaline Casts (None) Ur Culture Indicated? Nasal Screen MRSA (PCR) (Negative) 06/18/18 06/18/18 06/18/18 Range/Units 10:15 11:00 14:35 WBC (4.5-11.0) X10^3/uL RBC (4.0-5.2) X10^6/uL Hgb (12.0-16.0) g/dL Hct (36-46) % MCV (80-100) fL MCH (26-34) PG MCHC (30-36) % RDW (11.6-14.8) % Plt Count (150-400) X10^3/uL Neut % (Auto) (50-75) % Lymph % (Auto) (25-40) % Jasper % (Auto) (3-14) % Eos % (Auto) (2-4) % Baso % (Auto) (0-2) % Neut # (Auto) (6107-7204) /uL Lymph # (Auto) (5448-4415) /uL Jasper # (Auto) (0-900) /uL Eos # (Auto) (0-450) /uL Baso # (Auto) (0-100) /uL PT (10.1-12.7) SECONDS INR (0.9-1.3) APTT (26.4-36.2) SECONDS Sodium (137-145) mmol/L Potassium (3.4-5.1) mmol/L Chloride (98-107) mmol/L Carbon Dioxide (22-32) mmol/L BUN (7-17) mg/dL Creatinine (0.52-1.04) mg/dL Estimated GFR (>60) mL/min BUN/Creatinine Ratio (6-22) Glucose (80-110) mg/dL Calcium (8.4-10.2) mg/dL Magnesium 2.3 (1.6-2.3) mg/dL Total Bilirubin (0.2-1.3) mg/dL AST (14-36) IU/L ALT (9-52) IU/L Alkaline Phosphatase (38-126) U/L Troponin I (0.01-0.034) ng/mL B-Natriuretic Peptide (<100) Total Protein (6.3-8.2) g/dL Albumin (3.5-5.0) g/dL Globulin (1.7-4.1) g/dL Albumin/Globulin Ratio (1.0-2.8) Lipase (23-300) U/L Urine Color Yellow Urine Appearance Clear Urine pH 5.0 (4.5-8.0) Ur Specific [place] 1.020 (1.000-1.035) Urine Protein Negative (Negative) Urine Glucose (UA) Negative (Negative) g/dL Urine Ketones Negative (NEGATIVE) Urine Occult Blood Negative (Negative) Urine Nitrate Negative (Negative) Urine Bilirubin Negative (NEGATIVE) Urine Urobilinogen 0.2 (0.2) E.U./dL Ur Leukocyte Esterase Negative (NEGATIVE) Urine RBC None seen (0-5/HPF) Urine WBC None seen (0-5/HPF) Ur Squamous Epith Cells 10-30 /hpf H (0-5/HPF) Urine Bacteria Few (2-10) H (None) Hyaline Casts 5-10/lpf (None) Ur Culture Indicated? Cult not indicated Nasal Screen MRSA (PCR) Negative for mrsa (Negative) 06/18/18 Range/Units 14:53 WBC (4.5-11.0) X10^3/uL RBC (4.0-5.2) X10^6/uL Hgb (12.0-16.0) g/dL Hct (36-46) % MCV (80-100) fL MCH (26-34) PG MCHC (30-36) % RDW (11.6-14.8) % Plt Count (150-400) X10^3/uL Neut % (Auto) (50-75) % Lymph % (Auto) (25-40) % [place]asper % (Auto) (3-14) % Eos % (Auto) (2-4) % Baso % (Auto) (0-2) % Neut # (Auto) (0449-3251) /uL Lymph # (Auto) (3894-1529) /uL Jasper # (Auto) (0-900) /uL Eos # (Auto) (0-450) /uL Baso # (Auto) (0-100) /uL PT (10.1-12.7) SECONDS INR (0.9-1.3) APTT (26.4-36.2) SECONDS Sodium (137-145) mmol/L Potassium (3.4-5.1) mmol/L Chloride (98-107) mmol/L Carbon Dioxide (22-32) mmol/L BUN (7-17) mg/dL Creatinine (0.52-1.04) mg/dL Estimated GFR (>60) mL/min BUN/Creatinine Ratio (6-22) Glucose (80-110) mg/dL Calcium (8.4-10.2) mg/dL Magnesium (1.6-2.3) mg/dL Total Bilirubin (0.2-1.3) mg/dL AST (14-36) IU/L ALT (9-52) IU/L Alkaline Phosphatase (38-126) U/L Troponin I (0.01-0.034) ng/mL B-Natriuretic Peptide (<100) Total Protein (6.3-8.2) g/dL Albumin (3.5-5.0) g/dL Globulin (1.7-4.1) g/dL Albumin/Globulin Ratio (1.0-2.8) Lipase (23-300) U/L Urine Color Yellow Urine Appearance Clear Urine pH 6.5 (4.5-8.0) Ur Specific [place] 1.010 (1.000-1.035) Urine Protein Negative (Negative) Urine Glucose (UA) Negative (Negative) g/dL Urine Ketones Negative (NEGATIVE) Urine Occult Blood Negative (Negative) Urine Nitrate Negative (Negative) Urine Bilirubin Negative (NEGATIVE) Urine Urobilinogen 0.2 (0.2) E.U./dL Ur Leukocyte Esterase Negative (NEGATIVE) Urine RBC 0-1/hpf (0-5/HPF) Urine WBC None seen (0-5/HPF) Ur Squamous Epith Cells 0-1 /hpf D (0-5/HPF) Urine Bacteria None seen (None) Hyaline Casts (None) Ur Culture Indicated? Cult not indicated Nasal Screen MRSA (PCR) (Negative) Imaging Data Chest x-ray: Radiologist's impression: [facility] [address] [place] [id number] XRay Report Signed Patient: Nathaly Dee MMR#: [id number] : 1936Acct:[id number] Age/Sex: 82 / FDate of Service: 06/18/18 Loc: ED Accession Number: [id number] Procedure: XR chest 1V Ordering Provider: Adryan Howell D.O. PROCEDURE: XR CHEST 1V INDICATIONS: History of CHF with bilateral lower extremity swelling TECHNIQUE: One view of the chest was acquired. COMPARISON: [facility], CR, XR CHEST 1V, 04/15/2018, 18:10. FINDINGS: Surgical changes and devices: Postsurgical changes related to a lower cervical fusion are evident. Lungs and pleura: The blunting of left costophrenic angle is identified. No large effusion or pneumothorax is evident. No large area of consolidation. Mediastinum: Mediastinal contours appear normal. Heart size is enlarged. There is aortic atherosclerosis. Bones and chest wall: No suspicious bony lesions. Overlying soft tissues appear unremarkable. IMPRESSION: 1. Cardiomegaly without overt heart failure. 2. Small left-sided pleural effusion with probable associated scarring/atelectasis. Superimposed pneumonia is felt to be unlikely. Dictated by: Isaiah Jameson M.D. on 06/18/2018 at 9:29 Approved by: Isaiah Jameson M.D. on 06/18/2018 at 9:3 ECG Data Attestation: I personally reviewed and interpreted this ECG as follows: Prior ECG tracings: not available for review Interpretation: Atrial fibrillation Ventricular rate is [address] T wave changes MDM Narrative Medical decision making narrative: Review of her pharmacology records that the patient has been on Bactrim for the past couple days for the urinary tract infection. She does have a bump in her creatinine today. She also has a elevated BNP however no chest pain or shortness of breath and her chest x-ray shows no signs of fluid overload. She does have bilateral lower extremity swelling. Patient told me that she takes Lasix however her medicine shows that she takes torsemide. The patient request a Georges because she states she was too weak to get up and go to the bathroom. One was placed. She was given Lasix for her lower extremity swelling. given her weakness and her a KI I in her lower extremity swelling will admit for continued observation and treatment. Discussed the case with the hospitalist who accepts the patient. Discussed the admission with the patient and her who is at bedside they expressed understanding and agreement with plan. Discharge Plan Departure Patient Disposition: Admitted As Inpatient Clinical Impression: SHEELA (acute kidney injury), Weakness CHF (congestive heart failure) Qualifiers: Heart failure type: unspecified Heart failure chronicity: unspecified Qualified Code(s): I50.9 - Heart failure, unspecified Discharge Date/Time: 06/18/18 14:21 Interventions: ED Discharge Assessment Last Done: 06/18/18 14:11 Admit Date/Time: 06/18/18 14:20 Admit Provider: Adelita Thompson
--- NOTE | 2018-06-18 10:02 | ED_ITS ---
HPI - Weakness General Chief complaint: Weakness Stated complaint: General weakness, UTI, legs swelling Time Seen by Provider: 06/18/18 09:53 Source: patient Mode of arrival: EMS Limitations: no limitations History of Present Illness HPI Narrative: Patient is an 82-year-old female. History of atrial fibrillation and CHF. Has been on an antibiotic for the past 3 days for urinary tract infection prescribed by her primary provider. She has noted that since then she has had increasing swelling in her lower extremities. Weakness, shaking, inability to urinate fully. States she is just dribbling. No fevers. No shortness of breath or chest pain. She does wear CPAP at night. States that she did not take her Lasix this morning. Related Data Home Medications Medication Instructions Recorded Confirmed ondansetron HCl 4 mg PO TID PRN #0 03/13/16 06/18/18 oxycodone 5 mg PO Q6H PRN #0 03/13/16 06/18/18 sennosides [senna] 2 tab PO TID #0 03/13/16 06/18/18 fentanyl 1 patch TOPICAL Q72H #0 12/26/16 06/18/18 latanoprost 1 drp OPHTH BID #0 02/03/17 06/18/18 warfarin 5 mg tablet 5 mg PO TUFR 11/15/17 06/18/18 acetaminophen 1,000 mg PO Q6H PRN MDD 5 tablets 01/18/18 06/18/18 diltiazem HCl 180 mg PO BID 01/18/18 06/18/18 metoprolol succinate 100 mg PO QPM 01/18/18 06/18/18 pantoprazole 40 mg PO BID 01/18/18 06/18/18 polyethylene glycol 3350 [Miralax] 2 tsp PO DAILY 01/18/18 06/18/18 timolol maleate 1 drp EYE-BOTH BID 01/18/18 06/18/18 torsemide 40 mg PO BID 01/18/18 06/18/18 warfarin 2.5 mg PO SUMOWETHSA 01/18/18 06/18/18 melatonin 3 mg PO BEDTIME 04/15/18 06/18/18 mirtazapine 15 mg PO BEDTIME 04/15/18 06/18/18 cholecalciferol (vitamin D3) 2,000 unit PO DAILY 06/18/18 06/18/18 [Vitamin D3] cyanocobalamin (vitamin B-12) 1,000 mcg PO DAILY 06/18/18 06/18/18 [Vitamin B-12] docusate calcium 240 mg PO DAILY 06/18/18 06/18/18 lidocaine 1 patch TOPICAL DAILY 06/18/18 06/18/18 loratadine [Claritin] 10 mg PO DAILY 06/18/18 06/18/18 sertraline 50 mg PO DAILY 06/18/18 06/18/18 sulfamethoxazole-trimethoprim 1 tab PO BID 06/18/18 06/18/18 Previous Rx's Medication Instructions Recorded clobetasol 0.05 % topical ointment 1 applictn TOPICAL .COMPLEX #30 12/17/17 gram Allergies Allergy/AdvReac Type Severity Reaction Status Date / Time Penicillins [PENICILLINS] Allergy Severe RASH/SWELLI Verified 04/15/18 14:54 NG sulfite [SULFITE] Allergy Severe GI UPSET Verified 04/15/18 14:54 gabapentin [GABAPENTIN] AdvReac Unknown LOW BP, Verified 04/15/18 14:54 CONFUSION pregabalin [From LYRICA] AdvReac Unknown LOW BP, Verified 04/15/18 14:54 CONFUSION Review of Systems Constitutional Reports chills, Reports fatigue, Denies fever(s), Denies frequent falls, Denies headache(s), Reports weakness and Reports weight gain ENT Ears, Nose, Mouth, and Throat: Denies vertigo and Denies headache(s) Cardiovascular Denies chest pain and Denies dyspnea Respiratory Denies dyspnea Gastrointestinal Gastrointestinal: Denies abdominal pain, Denies nausea and Denies vomiting Genitourinary Comments: ?Dribbling? when she urinates Musculoskeletal Denies myalgias and Denies arthralgias Comments: Lower extremity swelling Integumentary/Breasts Denies rash Neurologic Denies confusion, Denies vertigo, Denies frequent falls, Denies headache(s) and Reports weakness Psychiatric Denies confusion Endocrine Reports fatigue Hematologic/Lymphatic Comments: On anticoagulation [facility] Medical History Obstructive sleep apnea of adult (Chronic ~2004) Snoring (Chronic ~2004) Chronic a-fib (Acute) Social History (Reviewed 06/18/18 @ 10:01 by CASSIDY Altamirano marital status: household members: spouse lives independently: Yes Smoking Status: Never smoker alcohol intake: current Exam Initial Vital Signs Initial Vital Signs: Vital Signs Temperature 98.0 F 06/18/18 09:54 Pulse Rate 68 06/18/18 09:54 Respiratory Rate 19 06/18/18 09:54 Blood Pressure 108/70 06/18/18 09:54 Pulse Oximetry 93 06/18/18 09:54 Const General: cooperative, comfortable, well developed, well groomed and No acute distress Orientation: alert, awake and oriented x3 HENMT Head: normal to inspection and normocephalic Resp Effort & Inspection: normal respiratory effort Auscultation: clear to auscultation bilaterally, no crackles, no rales, no rhonchi and no wheezes Cardio Rate: regular rate Rhythm: abnormal rhythm Pulses: radial pulses present GI Inspection: non-distended Palpation: soft Skin Lesions: no lesions Rashes: no rashes Neuro General: alert Cognition: normal cognition Speech: speech normal Extrem General: edema (3+ bilateral pitting edema lower extremities) Psych Appearance: grossly normal and well kempt Scores GCS Adam coma scale eye opening: Spontaneous [place] coma scale verbal response: Orientated [place] coma scale motor response: Obey commands Adam coma scale total score: 15 Course Orders Ordered: ED Orders 06/18/18 10:02 XR chest 1V Stat 06/18/18 10:15 B Type Natriuretic Peptide Stat Complete Blood Count AUTO DIFF Stat Comprehensive Metabolic Panel Stat Lipase Stat Magnesium Routine Partial Thromboplastin Time Stat Prothrombin Time INR Stat Troponin I Stat EKG-12 Lead Stat 06/18/18 11:00 Urinalysis and Microscopic Stat 06/18/18 13:32 Education, smoking cessation ONGOING 06/18/18 13:37 Consult to Occupational Therapy Evaluate & Treat Consult to Physical Therapy Evaluate & Treat 06/18/18 14:35 MRSA PCR Stat 06/18/18 14:53 Urinalysis and Microscopic Routine Acetaminophen (Tylenol) 650 mg PO Q6HR PRN PRN Reason: As Needed for Fever/Mild Pain Al Hydrox/Mg Hydrox/Simethicone (Maalox Plus) 30 ml PO Q6HR PRN PRN Reason: Dyspepsia Bisacodyl (Dulcolax) 10 mg PO DAILY PRN PRN Reason: Constipation Calcium Carbonate (Tums) 1,000 mg PO Q4HR PRN PRN Reason: Dyspepsia Docusate Sodium (Colace) 100 mg PO BID PRN PRN Reason: Constipation Ondansetron HCl (Zofran) 4 mg IV Q8HR PRN PRN Reason: Nausea And Vomiting Sennosides (Senna) 17.2 mg PO BEDTIME PRN PRN Reason: Constipation Discontinued Medications Furosemide (Lasix) 40 mg IV NOW ONE Stop: 06/18/18 11:00 Last Admin: 06/18/18 11:41 Dose: 40 mg Vital Signs - 8 hr 06/18/18 11:00 06/18/18 11:45 06/18/18 12:35 Temperature Pulse Rate 71 74 85 Respiratory Rate 16 18 26 H Blood Pressure Blood Pressure [Left Arm] 106/60 103/57 L 103/58 L Pulse Oximetry 97 97 96 06/18/18 13:00 06/18/18 14:12 06/18/18 14:29 Temperature 97.0 F L Pulse Rate 69 68 86 Respiratory Rate 16 14 16 Blood Pressure 92/62 Blood Pressure [Left Arm] 99/60 92/51 L Pulse Oximetry 97 100 90 L 06/18/18 14:49 06/18/18 15:04 06/18/18 16:00 Temperature 97.6 F Pulse Rate 82 Respiratory Rate 18 20 Blood Pressure 101/64 Blood Pressure [Left Arm] Pulse Oximetry 97 99 96 MDM - Weakness Lab Data Attestation: I reviewed the patient's lab results. Result diagrams: 06/18/18 10:15 06/18/18 10:15 Lab Results 06/18/18 06/18/18 06/18/18 Range/Units 10:15 10:15 10:15 WBC 9.6 (4.5-11.0) X10^3/uL RBC 4.40 (4.0-5.2) X10^6/uL Hgb 12.4 (12.0-16.0) g/dL Hct 38.7 (36-46) % MCV 87.9 (80-100) fL MCH 28.2 (26-34) PG MCHC 32.0 (30-36) % RDW 16.6 H (11.6-14.8) % Plt Count 314 (150-400) X10^3/uL Neut % (Auto) 70.9 (50-75) % Lymph % (Auto) 17.0 L (25-40) % Carbon % (Auto) 9.8 (3-14) % Eos % (Auto) 1.3 L (2-4) % Baso % (Auto) 1.0 (0-2) % Neut # (Auto) 6800 (6173-8252) /uL Lymph # (Auto) 1600 (3642-8419) /uL Carbon # (Auto) 900 (0-900) /uL Eos # (Auto) 100 (0-450) /uL Baso # (Auto) 100 (0-100) /uL PT 25.2 H (10.1-12.7) SECONDS INR 2.1 H (0.9-1.3) APTT 45 H D (26.4-36.2) SECONDS Sodium 136 L (137-145) mmol/L Potassium 4.8 (3.4-5.1) mmol/L Chloride 89 L (98-107) mmol/L Carbon Dioxide 35 H (22-32) mmol/L BUN 32 H (7-17) mg/dL Creatinine 1.40 H (0.52-1.04) mg/dL Estimated GFR 36.1 L (>60) mL/min BUN/Creatinine Ratio 22.9 H (6-22) Glucose 124 H (80-110) mg/dL Calcium 8.4 (8.4-10.2) mg/dL Magnesium (1.6-2.3) mg/dL Total Bilirubin 0.7 (0.2-1.3) mg/dL AST 25 (14-36) IU/L ALT 17 (9-52) IU/L Alkaline Phosphatase 100 (38-126) U/L Troponin I < 0.012 (0.01-0.034) ng/mL B-Natriuretic Peptide 861 H (<100) Total Protein 7.1 (6.3-8.2) g/dL Albumin 3.6 (3.5-5.0) g/dL Globulin 3.5 (1.7-4.1) g/dL Albumin/Globulin Ratio 1.0 (1.0-2.8) Lipase 18 L (23-300) U/L Urine Color Urine Appearance Urine pH (4.5-8.0) Ur Specific [place] (1.000-1.035) Urine Protein (Negative) Urine Glucose (UA) (Negative) g/dL Urine Ketones (NEGATIVE) Urine Occult Blood (Negative) Urine Nitrate (Negative) Urine Bilirubin (NEGATIVE) Urine Urobilinogen (0.2) E.U./dL Ur Leukocyte Esterase (NEGATIVE) Urine RBC (0-5/HPF) Urine WBC (0-5/HPF) Ur Squamous Epith Cells (0-5/HPF) Urine Bacteria (None) Hyaline Casts (None) Ur Culture Indicated? Nasal Screen MRSA (PCR) (Negative) 06/18/18 06/18/18 06/18/18 Range/Units 10:15 11:00 14:35 WBC (4.5-11.0) X10^3/uL RBC (4.0-5.2) X10^6/uL Hgb (12.0-16.0) g/dL Hct (36-46) % MCV (80-100) fL MCH (26-34) PG MCHC (30-36) % RDW (11.6-14.8) % Plt Count (150-400) X10^3/uL Neut % (Auto) (50-75) % Lymph % (Auto) (25-40) % Carbon % (Auto) (3-14) % Eos % (Auto) (2-4) % Baso % (Auto) (0-2) % Neut # (Auto) (1549-8268) /uL Lymph # (Auto) (5807-2191) /uL Carbon # (Auto) (0-900) /uL Eos # (Auto) (0-450) /uL Baso # (Auto) (0-100) /uL PT (10.1-12.7) SECONDS INR (0.9-1.3) APTT (26.4-36.2) SECONDS Sodium (137-145) mmol/L Potassium (3.4-5.1) mmol/L Chloride (98-107) mmol/L Carbon Dioxide (22-32) mmol/L BUN (7-17) mg/dL Creatinine (0.52-1.04) mg/dL Estimated GFR (>60) mL/min BUN/Creatinine Ratio (6-22) Glucose (80-110) mg/dL Calcium (8.4-10.2) mg/dL Magnesium 2.3 (1.6-2.3) mg/dL Total Bilirubin (0.2-1.3) mg/dL AST (14-36) IU/L ALT (9-52) IU/L Alkaline Phosphatase (38-126) U/L Troponin I (0.01-0.034) ng/mL B-Natriuretic Peptide (<100) Total Protein (6.3-8.2) g/dL Albumin (3.5-5.0) g/dL Globulin (1.7-4.1) g/dL Albumin/Globulin Ratio (1.0-2.8) Lipase (23-300) U/L Urine Color Yellow Urine Appearance Clear Urine pH 5.0 (4.5-8.0) Ur Specific [place] 1.020 (1.000-1.035) Urine Protein Negative (Negative) Urine Glucose (UA) Negative (Negative) g/dL Urine Ketones Negative (NEGATIVE) Urine Occult Blood Negative (Negative) Urine Nitrate Negative (Negative) Urine Bilirubin Negative (NEGATIVE) Urine Urobilinogen 0.2 (0.2) E.U./dL Ur Leukocyte Esterase Negative (NEGATIVE) Urine RBC None seen (0-5/HPF) Urine WBC None seen (0-5/HPF) Ur Squamous Epith Cells 10-30 /hpf H (0-5/HPF) Urine Bacteria Few (2-10) H (None) Hyaline Casts 5-10/lpf (None) Ur Culture Indicated? Cult not indicated Nasal Screen MRSA (PCR) Negative for mrsa (Negative) 06/18/18 Range/Units 14:53 WBC (4.5-11.0) X10^3/uL RBC (4.0-5.2) X10^6/uL Hgb (12.0-16.0) g/dL Hct (36-46) % MCV (80-100) fL MCH (26-34) PG MCHC (30-36) % RDW (11.6-14.8) % Plt Count (150-400) X10^3/uL Neut % (Auto) (50-75) % Lymph % (Auto) (25-40) % Carbon % (Auto) (3-14) % Eos % (Auto) (2-4) % Baso % (Auto) (0-2) % Neut # (Auto) (3613-2865) /uL Lymph # (Auto) (5566-8352) /uL Carbon # (Auto) (0-900) /uL Eos # (Auto) (0-450) /uL Baso # (Auto) (0-100) /uL PT (10.1-12.7) SECONDS INR (0.9-1.3) APTT (26.4-36.2) SECONDS Sodium (137-145) mmol/L Potassium (3.4-5.1) mmol/L Chloride (98-107) mmol/L Carbon Dioxide (22-32) mmol/L BUN (7-17) mg/dL Creatinine (0.52-1.04) mg/dL Estimated GFR (>60) mL/min BUN/Creatinine Ratio (6-22) Glucose (80-110) mg/dL Calcium (8.4-10.2) mg/dL Magnesium (1.6-2.3) mg/dL Total Bilirubin (0.2-1.3) mg/dL AST (14-36) IU/L ALT (9-52) IU/L Alkaline Phosphatase (38-126) U/L Troponin I (0.01-0.034) ng/mL B-Natriuretic Peptide (<100) Total Protein (6.3-8.2) g/dL Albumin (3.5-5.0) g/dL Globulin (1.7-4.1) g/dL Albumin/Globulin Ratio (1.0-2.8) Lipase (23-300) U/L Urine Color Yellow Urine Appearance Clear Urine pH 6.5 (4.5-8.0) Ur Specific [place] 1.010 (1.000-1.035) Urine Protein Negative (Negative) Urine Glucose (UA) Negative (Negative) g/dL Urine Ketones Negative (NEGATIVE) Urine Occult Blood Negative (Negative) Urine Nitrate Negative (Negative) Urine Bilirubin Negative (NEGATIVE) Urine Urobilinogen 0.2 (0.2) E.U./dL Ur Leukocyte Esterase Negative (NEGATIVE) Urine RBC 0-1/hpf (0-5/HPF) Urine WBC None seen (0-5/HPF) Ur Squamous Epith Cells 0-1 /hpf D (0-5/HPF) Urine Bacteria None seen (None) Hyaline Casts (None) Ur Culture Indicated? Cult not indicated Nasal Screen MRSA (PCR) (Negative) Imaging Data Chest x-ray: Radiologist's impression: [facility] [address] [place] [id number] XRay Report Signed Patient: Nathaly Dee MMR#: [id number] : 1936Acct:[id number] Age/Sex: 82 / FDate of Service: 06/18/18 Loc: ED Accession Number: [id number] Procedure: XR chest 1V Ordering Provider: Adryan Howell D.O. PROCEDURE: XR CHEST 1V INDICATIONS: History of CHF with bilateral lower extremity swelling TECHNIQUE: One view of the chest was acquired. COMPARISON: [facility], CR, XR CHEST 1V, 04/15/2018, 18:10. FINDINGS: Surgical changes and devices: Postsurgical changes related to a lower cervical fusion are evident. Lungs and pleura: The blunting of left costophrenic angle is identified. No large effusion or pneumothorax is evident. No large area of consolidation. Mediastinum: Mediastinal contours appear normal. Heart size is enlarged. There is aortic atherosclerosis. Bones and chest wall: No suspicious bony lesions. Overlying soft tissues appear unremarkable. IMPRESSION: 1. Cardiomegaly without overt heart failure. 2. Small left-sided pleural effusion with probable associated scarring/atelectasis. Superimposed pneumonia is felt to be unlikely. Dictated by: Isaiah Jameson M.D. on 06/18/2018 at 9:29 Approved by: Isaiah Jameson M.D. on 06/18/2018 at 9:3 ECG Data Attestation: I personally reviewed and interpreted this ECG as follows: Prior ECG tracings: not available for review Interpretation: Atrial fibrillation Ventricular rate is [address] T wave changes MDM Narrative Medical decision making narrative: Review of her pharmacology records that the patient has been on Bactrim for the past couple days for the urinary tract infection. She does have a bump in her creatinine today. She also has a elevated BNP however no chest pain or shortness of breath and her chest x-ray shows no signs of fluid overload. She does have bilateral lower extremity swelling. Patient told me that she takes Lasix however her medicine shows that she takes torsemide. The patient request a Georges because she states she was too weak to get up and go to the bathroom. One was placed. She was given Lasix for her lower extremity swelling. given her weakness and her a KI I in her lower extremity swelling will admit for continued observation and treatment. Discussed the case with the hospitalist who accepts the patient. Discussed the admission with the patient and her who is at bedside they expressed understanding and agreement with plan. Discharge Plan Departure Patient Disposition: Admitted As Inpatient Clinical Impression: SHEELA (acute kidney injury), Weakness CHF (congestive heart failure) Qualifiers: Heart failure type: unspecified Heart failure chronicity: unspecified Qualified Code(s): I50.9 - Heart failure, unspecified Discharge Date/Time: 06/18/18 14:21 Interventions: ED Discharge Assessment Last Done: 06/18/18 14:11 Admit Date/Time: 06/18/18 14:20 Admit Provider: Adelita Thompson
--- NOTE | 2018-06-18 10:26 | PC.NURSE ---
pt reports increase in generalized weakness for one week, unable to ambulate now, appetite decrease, unable to void, pt dx with uti on antibiotic for 3 days. denies fever,vomiting. noted abd down to bilateral lower legs edema, right side worsen than the left.
[2018-06-18 10:31] LABS: Add Manual Diff / Slide Review NO; Basophils Absolute Auto 100 /uL (0-100); Eosinophils Absolute Auto 100 /uL (0-450); Eosinophils Percent Auto 1.3 % (2-4); Hematocrit 38.7 % (36-46); Hemoglobin 12.4 g/dL (12.0-16.0); Lymphocytes Absolute Auto 1600 /uL (1100-4500); Mean Corpuscular Hemoglobin 28.2 PG (26-34); Mean Corpuscular Volume 87.9 fL (80-100); Monocytes Absolute Auto 900 /uL (0-900); Monocytes Percent Auto 9.8 % (3-14); Neutrophils Absolute Auto 6800 /uL (1500-7000); Neutrophils Percent Auto 70.9 % (50-75); Platelet Count 314 X10^3/uL (150-400); Red Cell Distribution Width 16.6 % (11.6-14.8); White Blood Cell Count 9.6 X10^3/uL (4.5-11.0)
[2018-06-18 10:36] LABS: INR 2.1 (0.9-1.3); Prothrombin Time 25.2 SECONDS (10.1-12.7)
--- NOTE | 2018-06-18 10:38 | PC.NURSE ---
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
[2018-06-18 10:39] LABS: PTT Partial Thromboplastin Tim 45 SECONDS (26.4-36.2)
[2018-06-18 10:43] LABS: Alanine Aminotransferase 17 IU/L (9-52); Albumin 3.6 g/dL (3.5-5.0); Alkaline Phosphatase 100 U/L (38-126); Aspartate Aminotransferase 25 IU/L (14-36); BUN Creatinine Ratio 22.9 (6-22); Bilirubin Total 0.7 mg/dL (0.2-1.3); Blood Urea Nitrogen 32 mg/dL (7-17); Calcium 8.4 mg/dL (8.4-10.2); Carbon Dioxide 35 mmol/L (22-32); Chloride 89 mmol/L (98-107); Estimated Glomerular Filt Rate 36.1 mL/min (>60); Globulin 3.5 g/dL (1.7-4.1); Glucose 124 mg/dL (80-110); HEMOLYSIS < 15 (0-50); Lipase 18 U/L (23-300); Potassium 4.8 mmol/L (3.4-5.1); Sodium 136 mmol/L (137-145); Total Protein 7.1 g/dL (6.3-8.2)
[2018-06-18 10:54] LABS: Troponin I < 0.012 ng/mL (0.01-0.034)
[2018-06-18 10:56] LABS: B Type Natriuretic Peptide 861 (<100)
[2018-06-18 11:10] LABS: RBC Urine None Seen (0-5/HPF); WBC Urine None Seen (0-5/HPF)
[2018-06-18 11:12] LABS: Appearance Urine UA CLEAR; Bilirubin Urine UA NEGATIVE (NEGATIVE); Color Urine UA YELLOW; Glucose Urine UA NEGATIVE (Negative); Ketones Urine UA NEGATIVE (NEGATIVE); Leukocyte Esterase Urine UA NEGATIVE (NEGATIVE); Nitrite Urine UA NEGATIVE (Negative); Occult Blood Urine UA NEGATIVE (Negative); Protein Urine UA NEGATIVE (Negative); Urobilinogen Urine UA 0.2 E.U./dL (0.2)
[2018-06-18 11:36] LABS: Bacteria Urine Few (2-10); Culture Indicated Urine Cult Not Indicated; Hyaline Casts Urine 5-10/LPF; Squamous Epithelial Cell Urine 10-30 /HPF (0-5/HPF)
--- NOTE | 2018-06-18 11:38 | PC.NURSE ---
provider made aware.
[2018-06-18] MEDS: FUROSEMIDE 40 MG/4 ML VIAL IV (11:41)
[2018-06-18 13:52] LABS: Magnesium 2.3 mg/dL (1.6-2.3)
--- NOTE | 2018-06-18 14:58 | PC.NURSE ---
PT TRANSFERRED TO ROOM 106 FROM ED- VSS AFEBRILE ALERT/ORIENTED AND ASKING APPROPRIATE QUESTIONS ASKED AND ANSWERED TO HER SATISFACTION. REVELES PATENT, 40MG IV LASIX GIVEN IN ED, DENIES PAIN- AFIB CVR - OPEN AREA NOTED TO FOURTH TOE ON LEFT AND BLACKENED NAIL TO 2ND TOE ON LEFT AND 2CM OPEN AREA TO INNER LEFT BUTTOCK NO DRAINAGE NOTED WELL RIGHT CHEEK RECENT BX SITE - SCAB NOTED BANDAID REMOVED
[2018-06-18 15:05] LABS: Bacteria Urine None Seen; WBC Urine None Seen (0-5/HPF)
[2018-06-18 15:09] LABS: Appearance Urine UA CLEAR; Bilirubin Urine UA NEGATIVE (NEGATIVE); Color Urine UA YELLOW; Glucose Urine UA NEGATIVE (Negative); Ketones Urine UA NEGATIVE (NEGATIVE); Leukocyte Esterase Urine UA NEGATIVE (NEGATIVE); Nitrite Urine UA NEGATIVE (Negative); Occult Blood Urine UA NEGATIVE (Negative); Protein Urine UA NEGATIVE (Negative); Urobilinogen Urine UA 0.2 E.U./dL (0.2); pH Urine UA 6.5 (4.5-8.0)
[2018-06-18 15:26] LABS: RBC Urine 0-1/HPF (0-5/HPF)
[2018-06-18 15:27] LABS: Culture Indicated Urine Cult Not Indicated; Squamous Epithelial Cell Urine 0-1 /HPF (0-5/HPF)
--- NOTE | 2018-06-18 15:30 | PT.IIE ---
Surgical History (Last Reviewed 04/15/18 @ 18:45 by Trip Patel MD) History of cataract removal with insertion of prosthetic lens History of cataract removal with insertion of prosthetic lens History of knee replacement History of thyroidectomy Status post appendectomy Status post breast reduction Status post colonoscopy Status post hysterectomy Medical History (Last Reviewed 06/18/18 @ 10:01 by Adryan Howell DO) Obstructive sleep apnea of adult (Chronic ~2004) Snoring (Chronic ~2004) Chronic a-fib (Acute) Physical Therapy Inpatient Evaluation/Re-Eval M1 PT/OT-IP Prior Functional Status Start: 06/18/18 17:00 Freq: NEEDED Status: Active Protocol: Document 06/18/18 15:30 AB (Rec: 06/18/18 17:10 AB [id number]) Medical Review Prior Functional Status Medical History Reviewed Yes Communication able to make needs known Mobility and Gait pt stated that she is modified independent with all mobilities and ambulation using 4WW indoors/outdoors. stated that since she had her UTI, her has to help her. stated that she has fear of falling and when that happens, she just panics and loses her balance posteriorly. Social History Household Members spouse Living Arrangements House Number of Floors (Floors) One Floor Number of Stairs To Enter/Railing? rampt to enter Home Environment High Toilet Walk in Shower Ramp Home Equipment Four Wheel Walker Straight Cane Shower Seat with Backrest Hand Held Shower Grab Bars Near Toilet Grab Bars In Shower Additional Social History Comment pt stated that she has a bedrail on the L side M2 PT-IP Current Condition Start: 06/18/18 17:00 Freq: NEEDED Status: Active Protocol: Document 06/18/18 15:30 AB (Rec: 06/18/18 17:10 AB [id number]) Physical Therapy Current Condition Current Condition Evaluation Date 06/18/18 Treatment Diagnosis UTI; generalized weakness; difficulty in walking Onset Date 06/18/18 Precautions Other Precautions falls M3 PT-IP Subjective Start: 06/18/18 17:00 Freq: NEEDED Status: Active Protocol: Document 06/18/18 15:30 AB (Rec: 06/18/18 17:10 AB [id number]) Subjective Physical Therapy Visit Type Type Initial Evaluation Visit Start Time 15:30 Visit Stop Time 16:00 Total Visit Minutes 30 Number of MULTIMEDIA ARTIST Visits 0 Physical Therapy Visit Comments Patient Comments pt initially refusing PT but then agreed. stated that she is weak M4 PT-IP Mobility and Gait Start: 06/18/18 17:00 Freq: NEEDED Status: Active Protocol: Document 06/18/18 15:30 AB (Rec: 06/18/18 17:10 [id number]) PT-Bed Mobility Assessment Supine to Sit Supine to Sit Standby Assistance Bedrails Sit to Supine Sit to Supine Maximum Assistance Bedrails PT-Transfer Assessment Sit to and From Stand Sit to and from Stand Moderate Assistance 1 Person Assistance Use of Upper Extremities Comments Mobility Comments pt refused to transfer to a chair and ambulate but agreed to do marching in place; completed marching in place using FWW requiring mod A and cues. PT-Balance Assessment Sitting Balance and Reactions Static Sitting Balance Ability Good Dynamic Sitting Balance Ability Good Standing Balance and Reactions Static Standing Balance Ability Fair Dynamic Standing Balance Ability Poor Device Used FWW M5 PT-IP Objective Assessments Start: 06/18/18 17:00 Freq: NEEDED Status: Active Protocol: Document 06/18/18 15:30 AB (Rec: 06/18/18 17:10 [id number]) Orientation Orientation/Cognition Level of Alertness Alert Orientation Name Place Situation Language Function Ability Hard of Hearing Safety Awareness Decreased Safety Awareness Gross Range of Motion Lower Extremity ROM Assessment Right Impaired Impairments decrease R knee flexion Strength Lower Extremity Strength Assessment Bilaterally Impaired Hip 3-/5 Knee 3+/5 Coordination Assessment Gross Coordination Gross Coordination WNL Sensation Assessment Sensation Gross Sensation WNL Muscle Tone Muscle Tone WNL Yes M6 PT-IP Treatment Start: 06/18/18 17:00 Freq: NEEDED Status: Active Protocol: Document 06/18/18 15:30 AB (Rec: 06/18/18 17:10 [id number]) Physical Therapy Treatment Education Education Provided Safety M7 PT-IP Assessment and Plan Start: 06/18/18 17:00 Freq: NEEDED Status: Active Protocol: Document 06/18/18 15:30 AB (Rec: 06/18/18 17:10 AB [id number]) PT Summary Assessment and Plan Potential Rehabilitation Potential Fair Status of Condition at Evaluation Evolving Summary Impairments Pain ROM Strength Balance Coordination Sensation Tone Cognition Bed Mobility Transfers Gait Activity Tolerance Assessment Summary pt requiring mod A with mobility at this time; refused to ambulate but completed marching in place requiring mod A. d/c plan depending on progress but at this time, pt requires SNF rehab to improve strength and mobility. Goals Bed Mobility Goal Standby Assistance Transfer Goal Standby Assistance Front Wheeled Walker Gait Goal Standby Assistance Front Wheel Walker Gait Distance 100 Other Goals improve ambulation using 4WW ~ 200 ft SBA Days to Meet Goals 5 Frequency of Treatment Frequency Of Treatment Once a Day Treatment Plan Physical Therapy Treatment Plan Bed Mobility Training Transfer Training Gait Training Therapeutic Exercise Balance Retraining Discharge Planning Hot or Cold Pack Neuromuscular Re-ed Coordination Retraining Manual Therapy Other Recommendations and Next Treatment ambulation Focus Recommendations To Nursing Amount of Assist Needed 2 Person Assist Discharge Recommendations PT Discharge Recommendations SNF Rehab Equipment Needed for Home Before FWW: if not safe with FWW Discharge
--- NOTE | 2018-06-18 23:41 | P.HP_ITS ---
History of Present Illness Date Patient Seen: 06/18/18 Time Patient Seen: 23:41 Chief complaint: General weakness, UTI, legs swelling Narrative: Patient is an unreliable historian. HPI is obtained via direct interview with the patient and review of records. The patient is an 82-year-old female with PMH of AFIB (AC w/ coumadin), HFpEF, moderate MR, LUIS (on CPAP), chronic pain (h/o spinal stenosis and osteoarthritis), and opioid dependence. The patient was sent to the ED out of concern for weakness. Associated symptoms include lower extremity edema, dyspnea w/ exertion, decreased urine output and fatigue. Given degree of weakness, she had difficulty ambulating. Patient is known to have frequent hospitalizations for hypervolemia. Also, she was recently treated for a UTI with Bactrim, x3 doses. Denies fever and chills. No chest pain, palpitations, dizziness / lightheadedness, and syncopal events. Denies symptoms of blood loss. Not sure if she has been adherent with diuretic doses. No other exacerbating or remitting factors noted. Patient History Medical History Obstructive sleep apnea of adult (Chronic ~2004) Snoring (Chronic ~2004) Chronic a-fib (Acute) Surgical History History of cataract removal with insertion of prosthetic lens History of cataract removal with insertion of prosthetic lens History of knee replacement History of thyroidectomy Status post appendectomy Status post breast reduction Status post colonoscopy Status post hysterectomy Social History marital status: household members: spouse lives independently: Yes Smoking Status: Never smoker alcohol intake: current Family & Social History Social History: household members spouse Prior Living Arrangements House lives independently Yes Safety & Behavioral: Feels Safe in Current Yes Environment Been Physically Hurt or No Threatened By a Person Suicidal Ideation Description None Suicide Plan Description No Plan Tobacco & Substance use: Smoking Status Never smoker alcohol intake current alcohol intake frequency holiday/special occasion Substance Use Type does not use Meds Home Medications Medication Instructions Recorded Confirmed Type ondansetron HCl 4 mg PO TID PRN #0 03/13/16 06/18/18 History oxycodone 5 mg PO Q6H PRN #0 03/13/16 06/18/18 History sennosides [senna] 2 tab PO TID #0 03/13/16 06/18/18 History fentanyl 1 patch TOPICAL Q72H #0 12/26/16 06/18/18 History latanoprost 1 drp OPHTH BID #0 02/03/17 06/18/18 History warfarin 5 mg tablet 5 mg PO TUFR 11/15/17 06/18/18 History clobetasol 0.05 % topical ointment 1 applictn TOPICAL .COMPLEX #30 12/17/17 06/18/18 Rx gram acetaminophen 1,000 mg PO Q6H PRN MDD 5 tablets 01/18/18 06/18/18 History diltiazem HCl 180 mg PO BID 01/18/18 06/18/18 History metoprolol succinate 100 mg PO QPM 01/18/18 06/18/18 History pantoprazole 40 mg PO BID 01/18/18 06/18/18 History polyethylene glycol 3350 [Miralax] 2 tsp PO DAILY 01/18/18 06/18/18 History timolol maleate 1 drp EYE-BOTH BID 01/18/18 06/18/18 History torsemide 40 mg PO BID 01/18/18 06/18/18 History warfarin 2.5 mg PO SUMOWETHSA 01/18/18 06/18/18 History melatonin 3 mg PO BEDTIME 04/15/18 06/18/18 History mirtazapine 15 mg PO BEDTIME 04/15/18 06/18/18 History cholecalciferol (vitamin D3) 2,000 unit PO DAILY 06/18/18 06/18/18 History [Vitamin D3] cyanocobalamin (vitamin B-12) 1,000 mcg PO DAILY 06/18/18 06/18/18 History [Vitamin B-12] docusate calcium 240 mg PO DAILY 06/18/18 06/18/18 History lidocaine 1 patch TOPICAL DAILY 06/18/18 06/18/18 History loratadine [Claritin] 10 mg PO DAILY 06/18/18 06/18/18 History sertraline 50 mg PO DAILY 06/18/18 06/18/18 History sulfamethoxazole-trimethoprim 1 tab PO BID 05/07/19 05/07/19 History Allergies Allergy/AdvReac Type Severity Reaction Status Date / Time Penicillins [PENICILLINS] Allergy Severe RASH/SWELLI Verified 04/15/18 14:54 NG sulfite [SULFITE] Allergy Severe GI UPSET Verified 04/15/18 14:54 gabapentin [GABAPENTIN] AdvReac Unknown LOW BP, Verified 04/15/18 14:54 CONFUSION pregabalin [From LYRICA] AdvReac Unknown LOW BP, Verified 04/15/18 14:54 CONFUSION Review of Systems Review of Systems All systems reviewed & are unremarkable except as noted in HPI and below Exam Vital Signs (past 8 hours): - 06/18/18 16:00 06/18/18 19:53 Temperature 97.6 F 97.9 F Pulse Rate 82 74 Respiratory Rate 20 15 Blood Pressure 101/64 97/46 L Pulse Oximetry 96 96 Oxygen Delivery Method Nasal Cannula Oxygen Flow Rate 2 Narrative Exam Narrative: Constitutional: NAD, elderly female BMI 31 Neurologic: Awake and alert; oriented to person, place, season; degree of forgetfulness is noted No focal neurological deficits, no facial asymmetry, no fasciculations, no tremor Head: NC, AT Eyes: PERRL, EOMI, Ears: external ears normal, no otorrhea, diminished hearing acuity Nose: external nose normal, no rhinorrhea or epistaxis; BiPAP device present Throat: dry MM, oropharynx w/o exudate Neck: no masses, lymphadenopathy, or JVD Chest / Respiratory: equal chest rise, unlabored respiratory effort, diminished, mild tachypnea at rest RR 22 Heart / CV: S1S2, + murmur Abdomen / GI: round, NT, ND, + BS, no organomegaly : no suprapubic tenderness Peripheral / Vascular: warm to touch, sensation intact, distal pulses palpable 3+, pitting lower extremity edema Musc: full ROM of upper and lower extremities, diminished strength bilaterally, equal Skin: Overall dermal thinning, and edema, areas bruising upper extremities Objective Labs Result Diagrams: 06/18/18 10:15 06/18/18 10:15 Labs: Laboratory Results - last 24 hr 06/18/18 06/18/18 06/18/18 10:15 10:15 10:15 WBC 9.6 RBC 4.40 Hgb 12.4 Hct 38.7 MCV 87.9 MCH 28.2 MCHC 32.0 RDW 16.6 H Plt Count 314 Neut % (Auto) 70.9 Lymph % (Auto) 17.0 L Smyth % (Auto) 9.8 Eos % (Auto) 1.3 L Baso % (Auto) 1.0 Neut # (Auto) 6800 Lymph # (Auto) 1600 Smyth # (Auto) 900 Eos # (Auto) 100 Baso # (Auto) 100 PT 25.2 H INR 2.1 H APTT 45 H D Sodium 136 L Potassium 4.8 Chloride 89 L Carbon Dioxide 35 H BUN 32 H Creatinine 1.40 H Estimated GFR 36.1 L BUN/Creatinine Ratio 22.9 H Glucose 124 H Calcium 8.4 Magnesium Total Bilirubin 0.7 AST 25 ALT 17 Alkaline Phosphatase 100 Troponin I < 0.012 B-Natriuretic Peptide 861 H Total Protein 7.1 Albumin 3.6 Globulin 3.5 Albumin/Globulin Ratio 1.0 Lipase 18 L Urine Color Urine Appearance Urine pH Ur Specific [place] Urine Protein Urine Glucose (UA) Urine Ketones Urine Occult Blood Urine Nitrate Urine Bilirubin Urine Urobilinogen Ur Leukocyte Esterase Urine RBC Urine WBC Ur Squamous Epith Cells Urine Bacteria Hyaline Casts Ur Culture Indicated? Nasal Screen MRSA (PCR) 06/18/18 06/18/18 06/18/18 10:15 11:00 14:35 WBC RBC Hgb Hct MCV MCH MCHC RDW Plt Count Neut % (Auto) Lymph % (Auto) Smyth % (Auto) Eos % (Auto) Baso % (Auto) Neut # (Auto) Lymph # (Auto) Smyth # (Auto) Eos # (Auto) Baso # (Auto) PT INR APTT Sodium Potassium Chloride Carbon Dioxide BUN Creatinine Estimated GFR BUN/Creatinine Ratio Glucose Calcium Magnesium 2.3 Total Bilirubin AST ALT Alkaline Phosphatase Troponin I B-Natriuretic Peptide Total Protein Albumin Globulin Albumin/Globulin Ratio Lipase Urine Color Yellow Urine Appearance Clear Urine pH 5.0 Ur Specific [place] 1.020 Urine Protein Negative Urine Glucose (UA) Negative Urine Ketones Negative Urine Occult Blood Negative Urine Nitrate Negative Urine Bilirubin Negative Urine Urobilinogen 0.2 Ur Leukocyte Esterase Negative Urine RBC None seen Urine WBC None seen Ur Squamous Epith Cells 10-30 /hpf H Urine Bacteria Few (2-10) H Hyaline Casts 5-10/lpf Ur Culture Indicated? Cult not indicated Nasal Screen MRSA (PCR) Negative for mrsa 06/18/18 14:53 WBC RBC Hgb Hct MCV MCH MCHC RDW Plt Count Neut % (Auto) Lymph % (Auto) Smyth % (Auto) Eos % (Auto) Baso % (Auto) Neut # (Auto) Lymph # (Auto) Smyth # (Auto) Eos # (Auto) Baso # (Auto) PT INR APTT Sodium Potassium Chloride Carbon Dioxide BUN Creatinine Estimated GFR BUN/Creatinine Ratio Glucose Calcium Magnesium Total Bilirubin AST ALT Alkaline Phosphatase Troponin I B-Natriuretic Peptide Total Protein Albumin Globulin Albumin/Globulin Ratio Lipase Urine Color Yellow Urine Appearance Clear Urine pH 6.5 Ur Specific [place] 1.010 Urine Protein Negative Urine Glucose (UA) Negative Urine Ketones Negative Urine Occult Blood Negative Urine Nitrate Negative Urine Bilirubin Negative Urine Urobilinogen 0.2 Ur Leukocyte Esterase Negative Urine RBC 0-1/hpf Urine WBC None seen Ur Squamous Epith Cells 0-1 /hpf D Urine Bacteria None seen Hyaline Casts Ur Culture Indicated? Cult not indicated Nasal Screen MRSA (PCR) Assessment & Plan Assessment & Plan narrative: Kidney injury, acute, present on admission, active sCr 1.4 on presentation (baseline 0.7-0.8) Cause is likely multi-factorial hypervolemia, [id number] HF, recent UTI, and nephrotoxicity - Treat underlying cause - Will hold from IVF in lieu of hypervolemia - Repeat Renal panel and Mg now - Avoid hypotension, optimize renal perfusion - D/C or avoid use of nephrotoxic agents (ie. Bactrim), reduce polypharmacy Acute on chronic diastolic heart failure, chronic condition, present admission CXR is remarkable for cardiomegaly, small left-sided pleural effusion with probable associated scarring/atelectasis. Echo, 03/29/2017 (LVEF 60-65%) LV w/ normal size and fx. RV moderately dilated. RV systolic function is at the lower limit of normal. [id number] MR, with an increase in severity of MR since 01/2017. Severe tricuspid regurgitation. RVSP 33 mmHg (pulmonary HTN improved from 01/2017). - received 40 mg IV Lasix in the ED. Diuresed 1000 ml. 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 - i/o monitoring q4h, daily weight - Compression stalkings - Echo, last 03/2017 Bilateral lower extremity edema, acute on chronic, present on admission, active 2/2 multifactorial... 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 Goal INR between 2 and 3. - Resume PT regimen of Coumadin Generalized weakness, acute, present on admission, improving - treat acute underlying condition - PT eval and treat Essential hypertension, chronic condition, present on admission, currently hypotensive - hold metoprolol and diltiazem Patient wishes to be a DNR. Authorizes spouse as a surrogate decision maker. Home medications reviewed and reconciled accordingly VTE prophylaxis: On Coumadin, compression stockings Quality VTE Deep Vein Thrombosis/Pulmonary Embolism Present on Admission: No
[2018-06-18] MEDS: ACETAMINOPHEN 325 MG TABLET 650 MG PO (23:58)
[2018-06-19] VITALS (12 sets, daily range): BP systolic 93–110; BP diastolic 54–70; PULSE 66–88; RESP 12–22; TEMP 36.1–36.8; O2SAT 92–99
--- NOTE | 2018-06-19 | DI.ECHO.S_ITS ---
[facility]---------+ [facility] +---------+ : : [address] : : : [place], [place] : : : : [id number] : : : : Phone: [phone] Echocardiogram Report + + :Name: NUNO MCKENZIE Study Date: 06/19/2018 Height: 66 in : :[facility] Exam Location: [facility] Weight: 191 lb : : Gender: Female BSA: 2.0 m2 : :: 1935 Age: 82 yrs BP: 103/70 mmHg: :Reason For Study: Edema/ Dyspnea : :Ordering Physician: Lisa : :Hospitalist Performed By: Hope Page : :Referring: AMRITA PHILLIPS : + + Interpretation Summary Left ventricular systolic function is normal with the ejection fraction visually estimated to be 55-60% without focal wall motion abnormalities although there is flattening of the interventricular septum, consistent with a significant right ventricular volume overload but this is unchanged compared to the previous study. There has been no significant change since the previous study. The right ventricle is moderate to severely dilated and systolic function is mildly reduced but unchanged compared to the previous study. The right ventricular systolic pressure is estimated to be at least 25 mmHg based on an estimated right atrial pressure of 15 mm Hg. Both atria are severely dilated and both atria have mildly increased in size since the prior echo exam. The mitral valve leaflets are mildly calcified with moderate mitral regurgitation that is unchanged compared to the previous study. The tricuspid annulus is dilated with obvious malcoaptation of the leaflets with significant leaflet separation during systole producing severe tricuspid regurgitation that is unchanged compared to the previous study. There is a moderate left-sided pleural effusion that is unchanged compared to the previous study. Procedure: A two-dimensional transthoracic echocardiogram with color flow and Doppler was performed. The study quality was technically adequate. Comparison is made with the echocardiogram of 01/19/2018. A contrast injection of Definity was performed to improve assessment of LV function. The patient was in atrial fibrillation with heart rates between 61-87 bpm during the exam. Left Ventricle: The left ventricle is normal in size. Left ventricular wall thickness is normal. Left ventricular systolic function is normal without focal wall motion abnormalities. The ejection fraction is estimated to be 55- 60%. Flattened septum is consistent with RV volume overload. This is unchanged compared to the previous study. Diastolic function could not be accurately assessed due to atrial fibrillation. There has been no significant change since the previous study. Right Ventricle: The right ventricle is moderate to severely dilated. Right ventricular systolic function is mildly reduced. This is unchanged compared to the previous study. Atria: Both atria are severely dilated. Both atria have mildly increased in size since the prior echo exam. There is no Doppler evidence for an interatrial shunt. Mitral Valve: There is moderate mitral annular calcification. There is moderate calcification extending into the subvalvular apparatus. The mitral valve leaflets are mildly calcified. There is moderate mitral regurgitation. This is unchanged compared to the previous study. Aortic Valve: The aortic valve is mildly calcified. Leaflet mobility is mildly reduced. There is no aortic valve stenosis. There is trace aortic regurgitation. Tricuspid Valve: The tricuspid annulus is dilated. There is obvious malcoaptation of the leaflets with significant leaflet separation during systole. There is severe tricuspid regurgitation. This is unchanged compared to the previous study. The right ventricular systolic pressure is estimated to be at least 25 mmHg based on an estimated right atrial pressure of 15 mm Hg. Pulmonic Valve: The pulmonic valve is not well seen, but is grossly normal. There is mild pulmonic regurgitation. Great Vessels: The aortic root is normal size. The ascending aorta is normal in size. The pulmonary artery is normal size. The IVC is dilated (diameter is greater than 2.1 cm) and it collapses less than 50% with a sniff. This suggests a high right atrial pressure of 15 mm Hg. Pericardium/ Pleura There is no pericardial effusion. There is a moderate left-sided pleural effusion. This is unchanged compared to the previous study. MMode/2D Measurements & Calculations LVIDd: 3.8 cm LVOT diam: 2.1 cm LVIDs: 2.5 cm Ao root diam: 3.3 cm FS: 34.1 % asc Aorta Diam: 3.1 cm EPSS: 0.96 cm IVSd: 0.74 cm LVPWd: 0.89 cm LV gardner. diameter/BSA (cm/m^2): 1.9 LV sys. diameter/BSA (cm/m^2): 1.3 LA A2 area: 37.5 cm2 RA long axis: 6.3 cm LA A4 area: 31.1 cm2 RA area: 35.6 cm2 LA length (vol): 6.3 cm RA vol: 171.3 ml LA vol: 157.1 ml RA : 87.4 ml/m2 LA vol index: 80.1 ml/m2 IVC diam: 2.8 cm RVD1 (basal): 5.2 cm RVD2 (mid): 5.5 cm TAPSE: 1.1 cm Doppler Measurements & Calculations Ao V2 max: 123.1 cm/sec LVOT Max Larry: 58.8 cm/sec Ao V2 mean: 82.0 cm/sec LV V1 max P.4 mmHg Ao max P.1 mmHg LV V1 VTI: 12.2 cm Ao mean P.1 mmHg ELAINA(I,D): 1.7 cm2 Ao V2 VTI: 24.7 cm ELAINA(V,D): 1.6 cm2 sev ratio: 0.50 ELAINA indexed to BSA (cm^2/m^2): 0.85 MV E max larry: 136.8 cm/sec TR max larry: 158.0 cm/sec Med Peak E' Larry: 4.1 cm/sec TR max P.0 mmHg E/E' med: 33.7 PA V2 max: 49.9 cm/sec Lat Peak E' Larry: 6.1 cm/sec PA V2 mean: 32.6 cm/sec E/E' lat: 22.3 PA mean P.49 mmHg E/e' average: 28.0 PA Accel Time: 0.10 sec MV dec time: 0.27 sec MV P1/2t: 77.0 msec MVA(VTI): 1.3 cm2 MV V2 mean: 60.7 cm/sec MV P1/2t max larry: 138.1 cm/sec MV mean P.0 mmHg MVA(P1/2t): 2.9 cm2 MV V2 VTI: 32.9 cm SV(LVOT): 41.2 ml Reading Physician:WON
[2018-06-19 02:14] LABS: Albumin 3.2 g/dL (3.5-5.0); BUN Creatinine Ratio 23.1 (6-22); Blood Urea Nitrogen 30 mg/dL (7-17); Calcium 7.8 mg/dL (8.4-10.2); Carbon Dioxide 34 mmol/L (22-32); Chloride 91 mmol/L (98-107); Estimated Glomerular Filt Rate 39.3 mL/min (>60); Glucose 110 mg/dL (80-110); HEMOLYSIS < 15 (0-50); Magnesium 2.3 mg/dL (1.6-2.3); Phosphorous 4.1 mg/dL (2.8-4.1); Potassium 3.8 mmol/L (3.4-5.1); Sodium 133 mmol/L (137-145)
[2018-06-19] MEDS: WARFARIN 2.5 MG TABLET PO ×2 (03:16→18:10)
--- NOTE | 2018-06-19 06:27 | PC.NURSE ---
Patient is alert and oriented x3, forgetful. Tylenol given for back and leg pain. Dozed little, she takes melatonin nightly, not available in night pharmacy. A-fib CVR, SpO2 92-97% on 2L. Coumadin given as ordered. SCDs on, Curt farias ordered. VSS.
[2018-06-19] MEDS: SERTRALINE 50 MG TABLET PO (09:55)
--- NOTE | 2018-06-19 10:05 | OT.IP.EVAL ---
Current Diagnoses Acute kidney failure, unspecified (06/18/18) Past Medical History (Last Reviewed 06/18/18 @ 23:48 by GADIEL Morales) Obstructive sleep apnea of adult (Chronic ~2004) Snoring (Chronic ~2004) Chronic a-fib (Acute) Surgical History (Last Reviewed 06/18/18 @ 23:48 by GADIEL Morales) History of cataract removal with insertion of prosthetic lens History of cataract removal with insertion of prosthetic lens History of knee replacement History of thyroidectomy Status post appendectomy Status post breast reduction Status post colonoscopy Status post hysterectomy Occupational Therapy Inpatient Evaluation/Re-Eval M1 PT/OT-IP Prior Functional Status Start: 06/18/18 17:00 Freq: NEEDED Status: Active Protocol: Document 06/19/18 10:05 CHAPITO (Rec: 06/19/18 17:32 CHAPITO [id number]) Medical Review Prior Functional Status Medical History Reviewed Yes Communication WNL Mobility and Gait Per , pt only walks 3-4 feet from doorway into bathroom. Pt use 3 wheel Go- Go scooter in the home. Pt does stand step transfer from bed to scooter. Scooter does not fit in bathroom door way so pt walks into bathroom. Pt stated that she has fear of falling and when that happens, she just panics and loses her balance posteriorly.This is why she does not walk much at home. concerned that pt keeps getting weaker and weaker and eventually he won't be physically able to care for her at home. Activities of Daily Living and IADL's Pt was independent with eating and grooming seated on 4WW at bathroom sink. assists with getting pants over feet, socks (pt rarely wears them) and shoes. Pt needs assist with incontinent brief change and seated shower at home. does all IADLS and they have house decorator 1x/month. They have painter helper with yard work. Social History Household Members spouse Living Arrangements House Number of Floors (Floors) One Floor Number of Stairs To Enter/Railing? ramp to enter Home Environment High Toilet Walk in Shower Ramp Home Equipment Front Wheel Walker Four Wheel Walker Manual Wheelchair Power Wheelchair/Scooter Shower Seat with Backrest Hand Held Shower Grab Bars Near Toilet Grab Bars In Shower Employment Status Retired Additional Social History Comment expressing caregiver fatigue and need for respite, daughter was scheduled to assist pt this weekend while visited his brother M2 OT-IP Current Condition Start: 06/19/18 17:03 Freq: Status: Active Protocol: Document 06/19/18 10:05 PJM (Rec: 06/19/18 17:32 PJ [id number]) Occupational Therapy Current Condition Current Condition Evaluation Date 06/19/18 Treatment Diagnosis decreased self care, mobility with strong anxiety overlay. DX: r/o UTI, CHF Diagnosis Onset Date 06/18/18 Post Operative Precautions Other Precautions fall risk, high anxiety re: mobility/falling M3 OT- IP Subjective and Pain Start: 06/19/18 17:03 Freq: Status: Active Protocol: Document 06/19/18 10:05 PJM (Rec: 06/19/18 17:32 [facility] [id number]) OT- Subjective Occupational Therapy Visit Type Type Initial Evaluation Visit Start Time 09:27 Visit Stop Time 10:05 Total Visit Minutes 33 Notes here this session to provide information re: prior level of function. Occupational Therapy Visit Comments Patient Comments I just don't want to fall. It is hard to make myself exercise. Patient/Caregiver Goals to go home OT Pain Assessment Pain When Pain Assessed After Treatment Pain Present Pain Present Denied Pain M4 OT- IP ADL's Start: 06/19/18 17:03 Freq: Status: Active Protocol: Document 06/19/18 10:05 PJM (Rec: 06/19/18 17:32 [facility] [id number]) OT [id number] General Evaluation Self-Feeding Ability Independent OT ADL-Grooming General Evaluation Grooming Ability Standby Assistance Areas Needing Assistance Face Washing Comments OT Grooming Comments seated in chair, pt sits on 4WW at home by bathroom sink OT ADL-Oral Care Comments Oral Care Comments did not occur this session, OT ADL-Dressing General Eval Lower Body Dressing Ability Total Assistance Areas Needing Assistance Socks OT ADL-Toileting Comments OT Toileting Comments did not occur this session, to be assessed OT ADL-Bathing General Evaluation Bathing Ability Minimal Assistance Comments OT Bathing Comments to be assessed; assists with drying off at home and supervises transfer in and out of shower M5 OT- IP IADL's Start: 06/19/18 17:03 Freq: Status: Active Protocol: Document 06/19/18 10:05 PJM (Rec: 06/19/18 17:32 [facility] [id number]) OT-Instrumental Activities of Daily Living Deficits IADL Deficits Identified Deficits Home Safety Awareness Awareness of Need for Assistance at Home Good Awareness Ability to Problem Solve Emergency Unable to Problem Solve Situations Medication Management Medication Management Caregiver Administers Medication Management Comments manages all pt's medications at home Money Management Money Management Caregiver Provides Assistance Money Management Comments provides total assist Meal Preparation Meal Preparation Caregiver Provides Assist Meal Preparation Comments provides total assist Personal Fitness Trainer Personal Fitness Trainer Caregiver Provides Assist Personal Fitness Trainer Comments provides total assist plus house decorator Driving Driving Caregiver Provides Assist Driving Comments pt no longer drives M6 OT- IP Functional Cognition Start: 06/19/18 17:03 Freq: Status: Active Protocol: Document 06/19/18 10:05 PJM (Rec: 06/19/18 17:32 [facility] [id number]) Cognitive Factors Limiting Selfcare Function Cognitive Ability Level of Alertness Alert Patient Orientation Name Age Birthday Month Date Year Day of Week Place Situation Attention Span Ability Capable of Focused Attention Capable of Sustained Attention Ability to Follow Commands Able to Follow One Step Commands Problem Solving Ability Needs Assist to Identify Solutions Executive Function Ability Unable to Make Plans Unable to Integrate Past Experience With Present Action Abstract Thinking Ability Unable to Make Generalizations Unable to Understand Generalizations Unable to Draw Logical Conclusions Unable to Be Adaptable in Thinking Cognitive Comments Cognitive Assessment Comments Pt is alert and oriented but with significantly decreased insight into current situation and her high care needs. Pt has high anxiety overlay re: mobility/falling and has severely self limited her ambulation over past several months per . OT- Vision and Hearing OT- Hearing Assessment OT- Hearing Assessment WFL Use of Hearing Aids OT- Vision Assessment Visual Acuity WFL Glasses All The Time Vision Assessment Comments Pt reports episodes of blurred vision but none today. M7 OT- IP Mobility and Balance Start: 06/19/18 17:03 Freq: Status: Active Protocol: Document 06/19/18 10:05 PJM (Rec: 06/19/18 17:32 [facility] [id number]) OT-Transfer Assessment Comments Mobility Comments see P.T. notes OT- Gait Assessment Gait Gait Assistance Required: Contact Guard Assist 2 Person Assist Distance (Feet) 8 Assistive Devices Assistive Device Gait Belt Front Wheeled Walker Comments Gait Ability Comments pt needs chair follow to relieve anxiety about falling during gait OT- Balance Assessment Comments Other Balance Tests/Deviations/Treatment see P.T. notes : M8 OT- IP Objective Assessments Start: 06/19/18 17:03 Freq: Status: Active Protocol: Document 06/19/18 10:05 PJM (Rec: 06/19/18 17:32 [facility] [id number]) OT Gross Range of Motion Upper Extremity Range of Motion Assessment Within Functional Limits OT Strength Upper Extremity Strength Assessment Within Functional Limits Hand Stereo Map Plotter Operator Strength Hand Dominance Right OT- Coordination Assessment Comments Coordination Comments BUE WFL for self care OT-Muscle Tone Assessment Muscle Tone WNL Yes OT Sensation Assessment Comments Summary Comments Pt denies deficits in BUE's, but reports decreased sensation in her feet and legs . Edema Edema Present Edema Comments BLE's, feet M9 OT- IP Assessment and Plan Start: 06/19/18 17:03 Freq: Status: Active Protocol: Document 06/19/18 10:05 PJM (Rec: 06/19/18 17:32 PJ [id number]) OT Summary Assessment and Plan Potential Analytic Complexity at Evaluation Low Summary OT Impairments Strength Balance Functional Cognition Functional Mobility Dressing Toileting Bathing Toilet Transfers Shower Transfers Assessment Summary Low complexity OT assessment completed on this 82 yr old female admitted with generalized weakness, inability to ambulate, LYNCH. DX is CHF exacerbation and r/o UTI. Per , pt has high anxiety overlay re: walking/ falling and has severely self limited her ambulation over past several months at home. Pt now only walks only 3-4 feet into bathroom and otherwise uses 3 wheel scooter in the home. is concerned that pt is getting weaker and weaker and eventually he won't be able to care for her at home. He expresses caregiver fatigue and need for respite services. Pt appears to have significantly decreased insight into her high care needs and difficulty initiating following through with home exercise programs. Provided education today to pt / re: concrete goal setting with pt, posting written goals where pt can see them on daily basis with check offsheet of daily participation in exercises/ ambulation. Pt would benefit from structured subacute rehab program with emphasis on controlling anxiety re: ambulation with education re: self calming strategies prior to mobilizing. Pt would also benefit from OT services to increase indep/safety/ endurance in lower body dressing, bathing and toileting. Goals Grooming Goal Contact Guard Assistance Dressing Goal Standby Assistance Toileting Goal Standby Assistance Bathing Goal Standby Assistance Toilet Transfer Goal Standby Assistance Shower Transfer Goal Contact Guard Assistance Walk-in Shower Shower Chair Grab Bars Patient/Caregiver Education Goal Demonstrate Energy Conservation and Pacing Caregiver Independent Assisting Patient OT-Other Goals Pt to verbalize/use 2 strategies for anxiety reduction prior to ambulating. Days to Meet Goals 7 Frequency of Treatment Frequency Of Treatment Once a Day Treatment Plan OT Treatment Plan ADL Training Functional Cognition Training Functional Mobility Patient/Family Education Discharge Planning Discharge Recommendations OT Discharge Recommendations SNF Rehab
--- NOTE | 2018-06-19 10:24 | PT.IPTN ---
Current Diagnoses Acute kidney failure, unspecified (06/18/18) Physical Therapy Treatment Note M2 PT-IP Current Condition Start: 06/18/18 17:00 Freq: NEEDED Status: Active Protocol: Document 06/18/18 15:30 AB (Rec: 06/18/18 17:10 AB [id number]) Physical Therapy Current Condition Current Condition Evaluation Date 06/18/18 Treatment Diagnosis UTI; generalized weakness; difficulty in walking Onset Date 06/18/18 Precautions Other Precautions falls M3 PT-IP Subjective Start: 06/18/18 17:00 Freq: NEEDED Status: Active Protocol: Document 06/19/18 10:14 SA (Rec: 06/19/18 10:24 SA [id number]) Subjective Physical Therapy Visit Type Type Treatment Note Visit Start Time 09:05 Visit Stop Time 09:38 Total Visit Minutes 23 Number of ROOF TRUSS BUILDER Visits 1 Physical Therapy Visit Comments Patient Comments Pt declined PT initially citing fatigue but was agreeable when encouraged her. Therapy Pain Assessment Pain When Pain Assessed At Rest Pain Present Pain Present Denied Pain M4 PT-IP Mobility and Gait Start: 06/18/18 17:00 Freq: NEEDED Status: Active Protocol: Document 06/19/18 10:14 SA (Rec: 06/19/18 10:24 SA [id number]) PT-Bed Mobility Assessment Rolling Type of Rolling Roll to Left Level of Assist Standby Assistance Supine to Sit Supine to Sit Standby Assistance Bedrails Scooting Scooting to Edge of Bed Contact Guard Assistance Scooting Up and Down in Bed Contact Guard Assistance PT-Transfer Assessment Sit to and From Stand Sit to and from Stand Minimal Assistance 1 Person Assistance Equipment Transfer Assistive Device Gait Belt Front Wheeled Walker Orthotic/Prosthetic Devices or Brace: No Transfers Transfer Destination Chair Transfer Technique Stand Step Pivot Transfer Ability Level of Assist Contact Guard Assistance Minimal Assistance 1 Person Assistance Comments Mobility Comments Pt CGA-Min A with functional transfers and cues for safety, SBA with bed mobility. PT with rapid fatigue. Gait Assessment Gait Gait Assistance Required: Contact Guard Assist Minimum Assistance 1 Person Assist Distance (Feet) 8 Assistive Devices Assistive Device Gait Belt Front Wheeled Walker Orthotic/Prosthetic Devices or Brace: No Gait Deviations General Gait Pattern Antalgic Decreased Stride Length Flexed Trunk Factors Limiting Gait Function Factors Limiting Gait Function Decreased Activity Tolerance Decreased Strength Poor Balance Poor Safety Awareness Comments Gait Comments Pt reports having falls in the past and is very fearful of falling which contributes to unsafe movements. Education for fall prevention and use of FWW safely. Chair follow with short walk to decrease pt anxiety and fear. M5 PT-IP Objective Assessments Start: 06/18/18 17:00 Freq: NEEDED Status: Active Protocol: Document 06/18/18 15:30 AB (Rec: 06/18/18 17:10 AB [id number]) Orientation Orientation/Cognition Level of Alertness Alert Orientation Name Place Situation Language Function Ability Hard of Hearing Safety Awareness Decreased Safety Awareness Gross Range of Motion Lower Extremity ROM Assessment Right Impaired Impairments decrease R knee flexion Strength Lower Extremity Strength Assessment Bilaterally Impaired Hip 3-/5 Knee 3+/5 Coordination Assessment Gross Coordination Gross Coordination WNL Sensation Assessment Sensation Gross Sensation WNL Muscle Tone Muscle Tone WNL Yes M6 PT-IP Treatment Start: 06/18/18 17:00 Freq: NEEDED Status: Active Protocol: Document 06/19/18 10:14 SA (Rec: 06/19/18 10:24 SA [id number]) Physical Therapy Treatment Exercises Exercises Ankle Pumps Gluteal Sets Quad Sets Education Education Provided Safety Other Treatments Other Treatment Performed Static standing for balance and postural corretion. M7 PT-IP Assessment and Plan Start: 06/18/18 17:00 Freq: NEEDED Status: Active Protocol: Document 06/19/18 10:14 SA (Rec: 06/19/18 10:24 SA [id number]) PT Summary Assessment and Plan Summary Assessment Summary Pt encouraged to slow down with mobility tasks to increase safety and reduce risk of falls, pt anxious with standing tasks d/t fear of falling. Pt would benefit from continued safety and balance training at SNF prior to d/c home. Frequency of Treatment Frequency Of Treatment Once a Day Treatment Plan Physical Therapy Treatment Plan Bed Mobility Training Transfer Training Gait Training Therapeutic Exercise Balance Retraining Discharge Planning Hot or Cold Pack Neuromuscular Re-ed Coordination Retraining Manual Therapy Other Recommendations and Next Treatment ambulation Focus Recommendations To Nursing Amount of Assist Needed 2 Person Assist Discharge Recommendations PT Discharge Recommendations SNF Rehab Equipment Needed for Home Before FWW Discharge
--- NOTE | 2018-06-19 12:34 | PC.NURSE ---
Transfer Note Transferred to room 214 via wheelchair by staff member at 1230. All belongings with patient including own CPAP, home meds (to be sent home with ), clothing, and cell phone. Report called to [facility].
--- NOTE | 2018-06-19 12:57 | PC.NURSE ---
Transfer: Received pt from [facility], report given by Angel [facility]. Personel items and c-pap device received with patient. Pt is concerned about some of her meds and Dr Thompson was made aware per [facility]. Dr. Thompson will be coming to see patient later today. Pt is up in the chair eating lunch. Denies any pain or breathing concerns. Apparently had a bad night last night. Feels better now. O2 is on at 2L NC, spot check O2 show sats of 93%. Resting quietly at the moment. Cont with poc.
[2018-06-19] MEDS: fentaNYL 25 MCG/PATCH TOP (20:18)
--- NOTE | 2018-06-19 21:12 | PM.PN.1 ---
Subjective Date Patient Seen: 06/19/18 Interval history: Nathaly Dee is an 82-year-old female with a past medical history significant for atrial fibrillation on chronic warfarin, HFpEF, moderate MR, LUIS on CPAP, and chronic pain with opiate dependence due to spinal stenosis and osteoarthritis who presented for weakness. Found to have SHEELA secondary to Bactrim and diuretic, recent not completely treated UTI and possible CHF exacerbation. The patient is resting in bed side chair comfortably. She reports her breathing and lower extremity swelling has improved since yesterday. Georges catheter was placed in the ED due to patient's weakness. She continues to be quite weak and has started working with physical therapy. She also endorses fatigue. Otherwise she denies headache, chest pain, abdominal pain, nausea, vomiting, fever, chills, diarrhea or constipation. She is voiding via Georges catheter with good UOP. She is up ambulating minimally due to weakness with assistance. Exam Vital Signs (past 8 hours): - 06/19/18 15:20 06/19/18 16:41 06/19/18 19:30 Temperature 98.2 F 97.6 F Pulse Rate 75 88 Respiratory Rate 17 18 Blood Pressure 97/59 L 108/62 Pulse Oximetry 98 98 98 06/19/18 20:00 Temperature Pulse Rate Respiratory Rate Blood Pressure Pulse Oximetry 96 Oxygen Delivery Method Nasal Cannula Oxygen Flow Rate 2 Narrative Exam Narrative: General: Elderly female sitting in bedside chair and in no acute distress, well-developed, well-nourished, appropriately interactive. HEENT: Normocephalic, atraumatic. External ears without defect. Pupils equal, round, and reactive to light. Anicteric sclerae, moist conjunctivae, and no lid lag. Neck: Supple with full range of motion. No jugular venous distension. No lymphadenopathy or thyromegaly. Cardiovascular: Irregularly irregular with grade 2/6 holosystolic murmur. No rubs or gallops appreciated. Pulmonary: Diminished throughout but appears to be clear to auscultation bilaterally without crackles, wheezes, or rhonchi. Normal respiratory effort with no use of accessory muscles. Abdomen: Soft, bowel sounds present nontender, nondistended. No hepatosplenomegaly or masses appreciated. Extremities: No clubbing, cyanosis, or edema. Mild trace edema to pretibial area bilaterally. Skin: Normal temperature, turgor, and texture; no rash, ulcers, or subcutaneous nodules appreciated. Neurological: Cranial nerves grossly intact. Psychiatric: Normal mood and affect. Alert and oriented to person, place, and time. Objective Labs Result Diagrams: 06/18/18 10:15 06/19/18 01:55 Labs: Laboratory Results - last 24 hr 06/19/18 01:55 Sodium 133 L Potassium 3.8 Chloride 91 L Carbon Dioxide 34 H BUN 30 H Creatinine 1.30 H Estimated GFR 39.3 L BUN/Creatinine Ratio 23.1 H Glucose 110 Calcium 7.8 L Phosphorus 4.1 Magnesium 2.3 Albumin 3.2 L Assessment & Plan Assessment & Plan narrative: Nathaly Dee is an 82-year-old female with a past medical history significant for atrial fibrillation on chronic warfarin, HFpEF, moderate MR, LUIS on CPAP, and chronic pain with opiate dependence due to spinal stenosis and osteoarthritis who presented for weakness. Found to have SHEELA secondary to Bactrim and diuretic, recent not completely treated UTI and possible CHF exacerbation. 1. Acute kidney injury, present on admission. Active. -Multifactorial and secondary to Bactrim in addition to patient's normal diuretic which together are nephrotoxic. -Initial creatinine 1.4 on presentation. Baseline creatinine 0.7-0.8. -Avoid hypotension, optimize renal perfusion -Discontinued and avoid nephrotoxic agents (ie. Bactrim). Will continue diuresis gently. 2. Acute on chronic diastolic heart failure, secondary to acute kidney injury, present on admission. Active. -CXR is remarkable for cardiomegaly, small left-sided pleural effusion with probable associated scarring/atelectasis. -Last echocardiogram on 03/29/2017 demonstrated normal left ventricular EF 60-65%, RV moderately dilated with lower limit of normal function, [id number] MR with an increase in severity since 01/2017, severe tricuspid regurgitation and RVSP 33 mmHg (pulmonary HTN improved from 01/2017). -Received 40 mg IV Lasix in the ED. Diuresed 1000 ml. Plan to restart torsemide 40 mg daily (usual dose 40 mg twice daily). -Continue strict I&O and daily weights. -Continue compression stockings and avoid medications with predisposition towards peripheral edema. 3. Recent UTI not completely treated, present on admission. Active. -Patient had urinary retention and says symptoms started on Bactrim DS per PCP. -No urinalysis was performed due to retention. Urinalysis on admission was contaminated, therefore, repeat was performed and is clear with culture not indicated likely due to being on antibiotics. -Started empiric doxycycline 100 mg twice daily for 3 additional days due to multiple antibiotic allergies (including penicillin with angioedema). 4. Acute generalized weakness, present on admission. Improving. -Treat acute underlying condition which is SHEELA and possibly deconditioning. -Continue PT evaluation and treatment. 5. Chronic atrial fibrillation on warfarin, present on admission. Stable. -Currently controlled ventricular rate. -Held metoprolol and diltiazem as patients BP borderline. Restart diltiazem 180 mg twice daily tomorrow morning. Continue holding metoprolol until SHEELA improving. -Replete electrolytes as needed. -INR currently therapeutic at 2.1. Continue home warfarin regimen, check daily INR, and adjust if needed. 6. Hypertension, chronic, present on admission. Stable. -Held metoprolol and diltiazem as above. 7. Insomnia, chronic, present on admission. Stable. -Continue melatonin 3 mg daily at bedtime and mirtazapine 50 mg daily at bedtime. 8. Chronic back pain with opiate dependence, present on admission. Stable. -Continue fentanyl patch 25 mcg every 72 hours and oxycodone 5 mg every 6 hours as needed for moderate to severe pain. 9. GERD, chronic, present on admission. Stable. -Continue Protonix 40 mg twice daily. 10. Depression, chronic, present on admission. Stable. -Continue sertraline 50 mg daily. Disposition: Likely discharge home possibly with home health versus shelter facility for rehabilitation in several days depending on improvement with treatment of SHEELA, UTI, CHF exacerbation and generalized weakness. Quality VTE Deep Vein Thrombosis/Pulmonary Embolism Present on Admission: No
--- NOTE | 2018-06-19 21:17 | P.PN_ITS ---
Subjective Date Patient Seen: 06/19/18 Interval history: Nathaly Dee is an 82-year-old female with a past medical history significant for atrial fibrillation on chronic warfarin, HFpEF, moderate MR, LUIS on CPAP, and chronic pain with opiate dependence due to spinal stenosis and osteoarthritis who presented for weakness. Found to have SHEELA secondary to Bactrim and diuretic, recent not completely treated UTI and possible CHF exacerbation. The patient is resting in bed side chair comfortably. She reports her breathing and lower extremity swelling has improved since yesterday. Georges catheter was placed in the ED due to patient's weakness. She continues to be quite weak and has started working with physical therapy. She also endorses fatigue. Otherwise she denies headache, chest pain, abdominal pain, nausea, vomiting, fever, chills, diarrhea or constipation. She is voiding via Georges catheter with good UOP. She is up ambulating minimally due to weakness with assistance. Exam Vital Signs (past 8 hours): - 06/19/18 15:20 06/19/18 16:41 06/19/18 19:30 Temperature 98.2 F 97.6 F Pulse Rate 75 88 Respiratory Rate 17 18 Blood Pressure 97/59 L 108/62 Pulse Oximetry 98 98 98 06/19/18 20:00 Temperature Pulse Rate Respiratory Rate Blood Pressure Pulse Oximetry 96 Oxygen Delivery Method Nasal Cannula Oxygen Flow Rate 2 Narrative Exam Narrative: General: Elderly female sitting in bedside chair and in no acute distress, well-developed, well-nourished, appropriately interactive. HEENT: Normocephalic, atraumatic. External ears without defect. Pupils equal, round, and reactive to light. Anicteric sclerae, moist conjunctivae, and no lid lag. Neck: Supple with full range of motion. No jugular venous distension. No lymphadenopathy or thyromegaly. Cardiovascular: Irregularly irregular with grade 2/6 holosystolic murmur. No rubs or gallops appreciated. Pulmonary: Diminished throughout but appears to be clear to auscultation bilaterally without crackles, wheezes, or rhonchi. Normal respiratory effort with no use of accessory muscles. Abdomen: Soft, bowel sounds present nontender, nondistended. No hepatosplenomegaly or masses appreciated. Extremities: No clubbing, cyanosis, or edema. Mild trace edema to pretibial area bilaterally. Skin: Normal temperature, turgor, and texture; no rash, ulcers, or subcutaneous nodules appreciated. Neurological: Cranial nerves grossly intact. Psychiatric: Normal mood and affect. Alert and oriented to person, place, and time. Objective Labs Result Diagrams: 06/18/18 10:15 06/19/18 01:55 Labs: Laboratory Results - last 24 hr 06/19/18 01:55 Sodium 133 L Potassium 3.8 Chloride 91 L Carbon Dioxide 34 H BUN 30 H Creatinine 1.30 H Estimated GFR 39.3 L BUN/Creatinine Ratio 23.1 H Glucose 110 Calcium 7.8 L Phosphorus 4.1 Magnesium 2.3 Albumin 3.2 L Assessment & Plan Assessment & Plan narrative: Nathaly Dee is an 82-year-old female with a past medical history significant for atrial fibrillation on chronic warfarin, HFpEF, moderate MR, LUIS on CPAP, and chronic pain with opiate dependence due to spinal stenosis and osteoarthritis who presented for weakness. Found to have SHEELA secondary to Ba ctrim and diuretic, recent not completely treated UTI and possible CHF exacerbation. 1. Acute kidney injury, present on admission. Active. -Multifactorial and secondary to Bactrim in addition to patient's normal diuretic which together are nephrotoxic. -Initial creatinine 1.4 on presentation. Baseline creatinine 0.7-0.8. -Avoid hypotension, optimize renal perfusion -Discontinued and avoid nephrotoxic agents (ie. Bactrim). Will continue diuresis gently. 2. Acute on chronic diastolic heart failure, secondary to acute kidney injury, present on admission. Active. -CXR is remarkable for cardiomegaly, small left-sided pleural effusion with probable associated scarring/atelectasis. -Last echocardiogram on 03/29/2017 demonstrated normal left ventricular EF 60- 65%, RV moderately dilated with lower limit of normal function, [id number] MR with an increase in severity since 01/2017, severe tricuspid regurgitation and RVSP 33 mmHg (pulmonary HTN improved from 01/2017). -Received 40 mg IV Lasix in the ED. Diuresed 1000 ml. Plan to restart torsemide 40 mg daily (usual dose 40 mg twice daily). -Continue strict I&O and daily weights. -Continue compression stockings and avoid medications with predisposition towards peripheral edema. 3. Recent UTI not completely treated, present on admission. Active. -Patient had urinary retention and says symptoms started on Bactrim DS per PC P. -No urinalysis was performed due to retention. Urinalysis on admission was contaminated, therefore, repeat was performed and is clear with culture not indicated likely due to being on antibiotics. -Started empiric doxycycline 100 mg twice daily for 3 additional days due to multiple antibiotic allergies (including penicillin with angioedema). 4. Acute generalized weakness, present on admission. Improving. -Treat acute underlying condition which is SHEELA and possibly deconditioning. -Continue PT evaluation and treatment. 5. Chronic atrial fibrillation on warfarin, present on admission. Stable. -Currently controlled ventricular rate. -Held metoprolol and diltiazem as patients BP borderline. Restart diltiazem 180 mg twice daily tomorrow morning. Continue holding metoprolol until SHEELA i mproving. -Replete electrolytes as needed. -INR currently therapeutic at 2.1. Continue home warfarin regimen, check daily INR, and adjust if needed. 6. Hypertension, chronic, present on admission. Stable. -Held metoprolol and diltiazem as above. 7. Insomnia, chronic, present on admission. Stable. -Continue melatonin 3 mg daily at bedtime and mirtazapine 50 mg daily at bedtime. 8. Chronic back pain with opiate dependence, present on admission. Stable. -Continue fentanyl patch 25 mcg every 72 hours and oxycodone 5 mg every 6 hours as needed for moderate to severe pain. 9. GERD, chronic, present on admission. Stable. -Continue Protonix 40 mg twice daily. 10. Depression, chronic, present on admission. Stable. -Continue sertraline 50 mg daily. Disposition: Likely discharge home possibly with home health versus retirement facility for rehabilitation in several days depending on improvement with treatment of SHEELA, UTI, CHF exacerbation and generalized weakness. Quality VTE Deep Vein Thrombosis/Pulmonary Embolism Present on Admission: No
[2018-06-19] MEDS: DOXYCYCLINE HYCLATE 100 MG TABLET PO (21:35)
[2018-06-19] MEDS: OXYCODONE IR 5 MG TABLET PO (22:43)
[2018-06-20] VITALS (16 sets, daily range): BP systolic 94–123; BP diastolic 57–68; PULSE 66–97; RESP 18–20; TEMP 36.1–37.1; O2SAT 91–100
[2018-06-20] MEDS: OXYCODONE IR 5 MG TABLET PO ×3 (05:40→22:08)
[2018-06-20 06:34] LABS: INR 1.9 (0.9-1.3); Prothrombin Time 22.3 SECONDS (10.1-12.7)
[2018-06-20 06:35] LABS: Add Manual Diff / Slide Review NO; Basophils Absolute Auto 0 /uL (0-100); Basophils Percent Auto 0.5 % (0-2); Eosinophils Absolute Auto 300 /uL (0-450); Eosinophils Percent Auto 3.4 % (2-4); Hematocrit 39.8 % (36-46); Hemoglobin 12.6 g/dL (12.0-16.0); Lymphocytes Absolute Auto 2300 /uL (1100-4500); Lymphocytes Percent Auto 25.4 % (25-40); Mean Corpuscular HGB Conc 31.8 % (30-36); Mean Corpuscular Volume 88.3 fL (80-100); Monocytes Absolute Auto 1000 /uL (0-900); Monocytes Percent Auto 10.5 % (3-14); Neutrophils Absolute Auto 5500 /uL (1500-7000); Neutrophils Percent Auto 60.2 % (50-75); Platelet Count 301 X10^3/uL (150-400); Red Blood Cell Count 4.51 X10^6/uL (4.0-5.2); Red Cell Distribution Width 16.7 % (11.6-14.8); White Blood Cell Count 9.2 X10^3/uL (4.5-11.0)
[2018-06-20 06:41] LABS: Alanine Aminotransferase 19 IU/L (9-52); Albumin 3.4 g/dL (3.5-5.0); Alkaline Phosphatase 97 U/L (38-126); Aspartate Aminotransferase 26 IU/L (14-36); Bilirubin Total 0.6 mg/dL (0.2-1.3); Blood Urea Nitrogen 23 mg/dL (7-17); Calcium 8.1 mg/dL (8.4-10.2); Carbon Dioxide 37 mmol/L (22-32); Chloride 92 mmol/L (98-107); Estimated Glomerular Filt Rate 53.2 mL/min (>60); Globulin 3.4 g/dL (1.7-4.1); Glucose 92 mg/dL (80-110); HEMOLYSIS < 15 (0-50); Magnesium 2.4 mg/dL (1.6-2.3); Potassium 3.7 mmol/L (3.4-5.1); Sodium 136 mmol/L (137-145); Total Protein 6.8 g/dL (6.3-8.2)
[2018-06-20 07:24] LABS: Procalcitonin < 0.05 ng/mL (<0.5)
[2018-06-20] MEDS: TORSEMIDE 10 MG TABLET 40 MG PO (08:45)
[2018-06-20] MEDS: DOXYCYCLINE HYCLATE 100 MG TABLET PO ×2 (08:46→20:04)
[2018-06-20] MEDS: SERTRALINE 50 MG TABLET PO (08:46)
[2018-06-20] MEDS: dilTIAZem CD 180 MG CAP PO (08:46)
[2018-06-20] MEDS: PANTOPRAZOLE 40 MG TABLET PO ×2 (08:47→20:05)
[2018-06-20] MEDS: LATANOPROST 0.005% OPHTH 2.5 ML 1 DROPS EYE-BOTH ×2 (09:13→20:04)
--- NOTE | 2018-06-20 11:20 | PT.IPTN ---
Current Diagnoses Acute kidney failure, unspecified (06/18/18) Physical Therapy Treatment Note M2 PT-IP Current Condition Start: 06/18/18 17:00 Freq: NEEDED Status: Active Protocol: Document 06/18/18 15:30 AB (Rec: 06/18/18 17:10 AB [id number]) Physical Therapy Current Condition Current Condition Evaluation Date 06/18/18 Treatment Diagnosis UTI; generalized weakness; difficulty in walking Onset Date 06/18/18 Precautions Other Precautions falls M3 PT-IP Subjective Start: 06/18/18 17:00 Freq: NEEDED Status: Active Protocol: Document 06/20/18 11:12 SA (Rec: 06/20/18 11:20 SA [id number]) Subjective Physical Therapy Visit Type Type Treatment Note Visit Start Time 08:49 Visit Stop Time 09:13 Total Visit Minutes 24 Number of BONDERIZER OPERATOR Visits 2 Physical Therapy Visit Comments Patient Comments Pt in bed an agreeable to PT this AM. Patient Goals To return home with . Therapy Pain Assessment Pain When Pain Assessed At Rest Pain Present Pain Present Denied Pain M4 PT-IP Mobility and Gait Start: 06/18/18 17:00 Freq: NEEDED Status: Active Protocol: Document 06/20/18 11:12 SA (Rec: 06/20/18 11:20 SA [id number]) PT-Bed Mobility Assessment Rolling Type of Rolling Roll to Left Level of Assist Standby Assistance Supine to Sit Supine to Sit Standby Assistance Bedrails Sit to Supine Sit to Supine Minimal Assistance Scooting Scooting to Edge of Bed Standby Assistance Scooting Up and Down in Bed Standby Assistance PT-Transfer Assessment Sit to and From Stand Sit to and from Stand Minimal Assistance 1 Person Assistance Equipment Orthotic/Prosthetic Devices or Brace: No Transfers Transfer Destination Chair Transfer Technique Stand Step Pivot Transfer Ability Level of Assist Contact Guard Assistance Minimal Assistance 1 Person Assistance Comments Mobility Comments Pt with continued fear of falling and difficulty initiating activity. Requires clear cues and reassurance of safety. CGA with transfers. Gait Assessment Gait Gait Assistance Required: Contact Guard Assist Minimum Assistance 1 Person Assist Distance (Feet) 12 Assistive Devices Assistive Device Gait Belt Front Wheeled Walker Orthotic/Prosthetic Devices or Brace: No Gait Deviations General Gait Pattern Antalgic Decreased Stride Length Flexed Trunk Factors Limiting Gait Function Factors Limiting Gait Function Decreased Activity Tolerance Decreased Strength Poor Balance Poor Safety Awareness Comments Gait Comments Pt's biggest barrier is fear/ cognition. Repeated, concise cues for breathing and leaning forward into walker help. Goal is for pt to ambulate 50 feet consistently ot return home with . M5 PT-IP Objective Assessments Start: 06/18/18 17:00 Freq: NEEDED Status: Active Protocol: Document 06/18/18 15:30 AB (Rec: 06/18/18 17:10 AB [id number]) Orientation Orientation/Cognition Level of Alertness Alert Orientation Name Place Situation Language Function Ability Hard of Hearing Safety Awareness Decreased Safety Awareness Gross Range of Motion Lower Extremity ROM Assessment Right Impaired Impairments decrease R knee flexion Strength Lower Extremity Strength Assessment Bilaterally Impaired Hip 3-/5 Knee 3+/5 Coordination Assessment Gross Coordination Gross Coordination WNL Sensation Assessment Sensation Gross Sensation WNL Muscle Tone Muscle Tone WNL Yes M6 PT-IP Treatment Start: 06/18/18 17:00 Freq: NEEDED Status: Active Protocol: Document 06/20/18 11:12 SA (Rec: 06/20/18 11:20 SA [id number]) Physical Therapy Treatment Exercises Exercises Ankle Pumps Gluteal Sets Quad Sets Education Education Provided Safety Other Treatments Other Treatment Performed Static standing for balance and postural correction. M7 PT-IP Assessment and Plan Start: 06/18/18 17:00 Freq: NEEDED Status: Active Protocol: Document 06/20/18 11:12 SA (Rec: 06/20/18 11:20 SA [id number]) PT Summary Assessment and Plan Summary Assessment Summary Pt needs redirection from fear /anxiety to task at hand with clear cues. Pt very fearful of falling and this is biggest mobility barrier. Confered with OT and use of visual written cues in place in room to help ease anxiety with mobility and encourage activity. Frequency of Treatment Frequency Of Treatment Once a Day Treatment Plan Physical Therapy Treatment Plan Bed Mobility Training Transfer Training Gait Training Therapeutic Exercise Balance Retraining Discharge Planning Hot or Cold Pack Neuromuscular Re-ed Coordination Retraining Manual Therapy Recommendations To Nursing Amount of Assist Needed 2 Person Assist Discharge Recommendations PT Discharge Recommendations SNF Rehab Equipment Needed for Home Before FWW Discharge
--- NOTE | 2018-06-20 11:21 | OT.IP.TRT ---
Current Diagnoses Acute kidney failure, unspecified (06/18/18) Occupational Therapy Treatment Note M2 OT-IP Current Condition Start: 06/19/18 17:03 Freq: Status: Active Protocol: Document 06/19/18 10:05 PJM (Rec: 06/19/18 17:32 PJ [id number]) Occupational Therapy Current Condition Current Condition Evaluation Date 06/19/18 Treatment Diagnosis decreased self care, mobility with strong anxiety overlay. DX: r/o UTI, CHF Diagnosis Onset Date 06/18/18 Post Operative Precautions Other Precautions fall risk, high anxiety re: mobility/falling M3 OT- IP Subjective and Pain Start: 06/19/18 17:03 Freq: Status: Active Protocol: Document 06/20/18 11:21 PJJaun Antonio (Rec: 06/20/18 16:58 [facility] [id number]) OT- Subjective Occupational Therapy Visit Type Type Treatment Note Visit Start Time 10:40 Visit Stop Time 11:21 Total Visit Minutes 41 Notes Pt's present for first half of session to work on goal setting and behavioral strategies with pt. Occupational Therapy Visit Comments Patient Comments I will try to do it. Patient/Caregiver Goals I want to go home if I can, not to rehab. Pt/ agreed that pt needs to be able to walk 50 ft to return home, control her anxiety about falling during ambulation and participate in home exercise program to prevent weakness in order to return home. OT Pain Assessment Pain When Pain Assessed After Treatment Pain Present Pain Present Pain Reported Location Bilateral Leg Intensity 3 Description Chronic Management Techniques Distraction Timing of Activity with Medications M4 OT- IP ADL's Start: 06/19/18 17:03 Freq: Status: Active Protocol: Document 06/20/18 11:21 PJJuan Antonio (Rec: 06/20/18 16:58 [facility] [id number]) OT ADL-Grooming General Evaluation Grooming Ability Standby Assistance Areas Needing Assistance Retrieving/Set-up of Grooming Items Face Washing Glasses Comments OT Grooming Comments seated at sink on BSC; pt normally sits on 4WW at sink so will bring this in to simulate home set up OT ADL-Oral Care General Eval Oral Care Ability Standby Assistance Comments Oral Care Comments seated at sink on BSC OT ADL-Dressing Comments OT Dressing Comments did not occur this session OT ADL-Toileting General Evaluation Toileting Ability Total Assistance Areas Needing Assistance Empty Catheter or Colostomy Comments OT Toileting Comments jackson in place OT ADL-Bathing Comments OT Bathing Comments to be assessed as activity tolerance improves M5 OT- IP IADL's Start: 06/19/18 17:03 Freq: Status: Active Protocol: Document 06/19/18 10:05 PJM (Rec: 06/19/18 17:32 PJ [id number]) OT-Instrumental Activities of Daily Living Deficits IADL Deficits Identified Deficits Home Safety Awareness Awareness of Need for Assistance at Home Good Awareness Ability to Problem Solve Emergency Unable to Problem Solve Situations Medication Management Medication Management Caregiver Administers Medication Management Comments manages all pt's medications at home Money Management Money Management Caregiver Provides Assistance Money Management Comments provides total assist Meal Preparation Meal Preparation Caregiver Provides Assist Meal Preparation Comments provides total assist Sales Route Driver Helper Sales Route Driver Helper Caregiver Provides Assist Sales Route Driver Helper Comments provides total assist plus boarding house manager Driving Driving Caregiver Provides Assist Driving Comments pt no longer drives M6 OT- IP Functional Cognition Start: 06/19/18 17:03 Freq: Status: Active Protocol: Document 06/20/18 11:21 PJM (Rec: 06/20/18 16:58 [facility] [id number]) Cognitive Factors Limiting Selfcare Function Cognitive Ability Level of Alertness Alert Patient Orientation Name Place Situation Attention Span Ability Capable of Focused Attention Capable of Sustained Attention Ability to Follow Commands Able to Follow One Step Commands Safety Awareness Decreased Ability to Apply Precautions Underestimates Need for Assistance Problem Solving Ability Unable to Identify Errors Needs Assist to Identify Solutions Executive Function Ability Unable to Make Plans Unable to Organize Plans Unable to Remember Details Abstract Thinking Ability Unable to Draw Logical Conclusions Unable to Be Adaptable in Thinking Cognitive Comments Cognitive Assessment Comments Worked with pt and present re: strategies for self calming when pt gets anxious about falling. Pt will 1) Stop, 2) Push down through hands on FWW and get nose over toes by leaning forward, 3) Breathe deeply, 4) Carry on Posted this behavorial strategy in room for trial use. M7 OT- IP Mobility and Balance Start: 06/19/18 17:03 Freq: Status: Active Protocol: Document 06/20/18 11:21 PJ (Rec: 06/20/18 16:58 [facility] [id number]) OT-Transfer Assessment Sit to and From Stand Sit to and from Stand Standby Assistance Transfers Transfer Ability Contact Guard Assistance 1 Person Assistance Use of Upper Extremities Technique Transfer Destination Bedside Commode Chair Transfer Technique Stand Step Pivot Devices Transfer Assistive Devices Gait Belt Front Wheeled Walker OT- Gait Assessment Gait Gait Assistance Required: Contact Guard Assist Distance (Feet) 12 Assistive Devices Assistive Device Gait Belt Front Wheeled Walker Comments Gait Ability Comments Pt ambulated 6+ 6 ft to sink and back with FWW with seated rest on BSC for grooming. Distracted pt with conversation during gait with no anxiety episodes noted. OT- Balance Assessment Sitting Balance and Reactions Static Sitting Balance Ability Good Standing Balance and Reactions Static Standing Balance Ability Good Dynamic Standing Balance Ability Fair M8 OT- IP Objective Assessments Start: 06/19/18 17:03 Freq: Status: Active Protocol: Document 06/19/18 10:05 PJM (Rec: 06/19/18 17:32 PJM [id number]) OT Gross Range of Motion Upper Extremity Range of Motion Assessment Within Functional Limits OT Strength Upper Extremity Strength Assessment Within Functional Limits Hand Program Control Analyst Strength Hand Dominance Right OT- Coordination Assessment Comments Coordination Comments BUE WFL for self care OT-Muscle Tone Assessment Muscle Tone WNL Yes OT Sensation Assessment Comments Summary Comments Pt denies deficits in BUE's, but reports decreased sensation in her feet and legs . Edema Edema Present Edema Comments BLE's, feet M9 OT- IP Assessment and Plan Start: 06/19/18 17:03 Freq: Status: Active Protocol: Document 06/20/18 11:21 PJM (Rec: 06/20/18 16:58 PJM [id number]) OT Summary Assessment and Plan Summary OT Impairments Pain Strength Balance Functional Cognition Functional Mobility Grooming Dressing Toileting Bathing Toilet Transfers Shower Transfers Progress Towards Goals Slow Progress due to Activity Tolerance Assessment Summary Pt ambulated to sink and back today (12 ft total) with no anxiety when distracted with conversation. Pt/ agreed on goals that pt needs to achieve for home d/c and these were posted in room within pt view. Also posted behavioral strategy for anxiety episodes so all staff can approach these consistently. states he would like pt to go to SNF at d/c to get stronger and more consistent with per participation and anxiety management prior to return home. states he will consider hiring private caregiver for some respite time each week. Goals Grooming Goal Contact Guard Assistance Dressing Goal Standby Assistance Toileting Goal Standby Assistance Bathing Goal Standby Assistance Toilet Transfer Goal Standby Assistance Shower Transfer Goal Contact Guard Assistance Walk-in Shower Shower Chair Grab Bars Patient/Caregiver Education Goal Demonstrate Energy Conservation and Pacing Caregiver Independent Assisting Patient OT-Other Goals Pt to verbalize/use 2 strategies for anxiety reduction prior to ambulating. Days to Meet Goals 7 Frequency of Treatment Frequency Of Treatment Once a Day Treatment Plan OT Treatment Plan ADL Training Functional Cognition Training Functional Mobility Patient/Family Education Discharge Planning Other Treatment Recommendations and Next behavioral strategies for Treatment Focus anxiety management and self calming during mobility Discharge Recommendations OT Discharge Recommendations SNF Rehab
--- NOTE | 2018-06-20 12:35 | CM.DANOTE ---
Addendum entered by Dorie Silva LPN 06/20/18 16:08: Received a call from [facility]. He and Nicki had just toured and he reports the facility like an excellent facility and a good fit for my 's rehab.He and Nicki will be updating pt later today. P: [facility] when stable for same. Addendum entered by Dorie Silva LPN 06/20/18 14:48: Was summoned to room by pt and joined shortly thereafter by her Goyo to discuss update to their d/c plan. Pt says : I have to go to the rehab facility so I will do it. Goyo is poised to go to look at the [facility], identified earlier today as their first choice. Called [facility] and spoke with Yony/speaker phone. Explained case and need for [facility] to tour as he is leaving for a long planned visit to his brother's home tomorrow and will be gone a week. A bed is available and they will tour [facility] when he arrives this afternoon. Referral packed faxed. Asked Lissette is she could see pt tomorrow morning to help alleviate any concerns she has about her rehab stay and she kindly agreed to be here about 0830. Pt and Goyo are updated. Pt now seems quite relaxed and at ease. Goyo has left for tour. Pt says her daughter Nicki is in favor of this plan, lives very close to the facility and will visit often. Pt says she has been looking at pictures of the facility on her tablet. P: [facility] Will have met the 3 day qualifying stay by tomorrow. Is unclear when d/c might be and Dr. Thompson's note is not in for today. Dr. Leyva will be on as hospitalist tomorrow. The facility will provide transport. Will see pt in the morning and introduce her to Lissette. Need: PASRR Addendum entered by Dorie Silva LPN 06/20/18 12:56: Pt also does identify some family support. She and her have been 30 years. They each have 2 children/now all adults. Pt's daughter Nicki lives in [facility]. Original Note: Discharge Planning/Care Management DCP: assessment: case received yesterday and discussed in Team Rounds. OT and PT were ordered. Discussed outcome of therapy at end of day with OT Lety and planned to see pt this morning to continue the assessment process. In prep for same reviewed notes from the January admission and noted that pt had asked DCP/social work team for counseling resources and HH had been set up with [facility]. Met as planned with pt and her Louie. Introduced self and role. Both confirm that [facility] did come out for some time and pt says they were helpful. Pt also followed up on the counseling resources and saw a counselor in [facility] (neither recall the name) for 3 sessions. Then she told us she did not need to see me anymore. She had given me some ideas and I was to work on them. It was helpful. Pt admits to primarily using her 3 wheel scooter to get about the house, walking only into the bathroom. She says my goal is to be able to use the walker all the time in the house and not use the scooter. Discussed options to assist pt to meet this goal and encouraged consideration of a short snf stay before going home with HH to continue the process. Pt seemed open to this and was encouraged by her to same. SNF options: discussed: and both were considering [facility] due to abundance of therapy and treatment room. OT then entered the room to begin therapy session and pt immediately said but I will definitely be going home this time. I am only going to go somewhere else when I absolutely must. At this point pt's spouse Louie left for a massage. P: pt is open to [facility]. Louie seems open to same although would prefer her to have a snf stay. Agreed to come back tomorrow and continue the conversation. Will plan to optain a HH/Face/Face document from physician as sees very likely pt will elect this option at d/c. If home, will plan for HH RN/OT/PT/HRIS DEVELOPER. CM Discharge Assessment Start: 06/20/18 12:33 Freq: Status: Active Protocol: Document 06/20/18 12:33 ITV (Rec: 06/20/18 12:35 ITV [id number]) Discharge Planning Assessment Advance Directives? Yes: HERE IN MEDICAL RECORDS History Provided By Patient Family Member Medical Record Has Patient been admitted in last 30 No days? Comment last admission: 2017 : went home with HH Prior Living Arrangements House Household Members spouse Type of transporation used prior to Relies on Others admit Whiteboard Updated in Patient Room with Yes name and ext. # of Block Mechanic Review Status In Process Next Review Type Continued Stay Review
[2018-06-20] MEDS: WARFARIN 2.5 MG TABLET PO (16:37)
--- NOTE | 2018-06-20 17:45 | PM.PN.1 ---
Subjective Date Patient Seen: 06/20/18 Interval history: Nathaly Dee is an 82-year-old female with a past medical history significant for atrial fibrillation on chronic warfarin, HFpEF, moderate MR, LUIS on CPAP, and chronic pain with opiate dependence due to spinal stenosis and osteoarthritis who presented for weakness. Found to have SHEELA secondary to Bactrim and diuretic, recent not completely treated UTI and possible CHF exacerbation. The patient is resting in bed side chair comfortably. She reports she feels much better. She does endorse generalized weakness that she reports is new. Discussion with her yesterday reveals that she has been weak for some time and that he is unable to care for her at home. The patient is adamant that she does not want to go to a intermediate facility. She has no complaints and denies headache, chest pain, shortness of breath abdominal pain, nausea, vomiting, fever, chills, diarrhea or constipation. She is voiding via Georges catheter with good UOP. She is hesitant to remove Georges catheter but is agreeable to later this afternoon. She is up ambulating minimally due to weakness with assistance and PT/OT. Exam Vital Signs (past 8 hours): - 06/20/18 12:17 06/20/18 14:06 06/20/18 15:15 Temperature 98.7 F 98.7 F Pulse Rate 91 H 92 H Respiratory Rate 18 Blood Pressure 105/60 94/57 L Pulse Oximetry 92 93 92 Fraction of Inspired Oxygen 21 Oxygen Delivery Method Room Air Oxygen Flow Rate 0 Narrative Exam Narrative: General: Elderly female sitting in bedside chair and in no acute distress, well-developed, well-nourished, appropriately interactive. HEENT: Normocephalic, atraumatic. External ears without defect. Pupils equal, round, and reactive to light. Anicteric sclerae, moist conjunctivae, and no lid lag. Neck: Supple with full range of motion. No jugular venous distension. No lymphadenopathy or thyromegaly. Cardiovascular: Irregularly irregular with grade 2/6 holosystolic murmur. No rubs or gallops appreciated. Pulmonary: Diminished throughout but appears to be clear to auscultation bilaterally without crackles, wheezes, or rhonchi. Normal respiratory effort with no use of accessory muscles. Abdomen: Soft, bowel sounds present nontender, nondistended. No hepatosplenomegaly or masses appreciated. Extremities: No clubbing or cyanosis. Trace edema to pretibial area bilaterally with compression stockings in place. Skin: Normal temperature, turgor, and texture; no rash, ulcers, or subcutaneous nodules appreciated. Neurological: Cranial nerves grossly intact. Psychiatric: Normal mood and affect. Alert and oriented to person, place, and time. Objective Labs Result Diagrams: 06/20/18 06:04 06/20/18 06:04 Labs: Laboratory Results - last 24 hr 06/20/18 06/20/18 06/20/18 06:04 06:04 06:04 WBC 9.2 RBC 4.51 Hgb 12.6 Hct 39.8 MCV 88.3 MCH 28.0 MCHC 31.8 RDW 16.7 H Plt Count 301 Neut % (Auto) 60.2 Lymph % (Auto) 25.4 [place] % (Auto) 10.5 Eos % (Auto) 3.4 Baso % (Auto) 0.5 Neut # (Auto) 5500 Lymph # (Auto) 2300 [place] # (Auto) 1000 H Eos # (Auto) 300 Baso # (Auto) 0 PT 22.3 H INR 1.9 H Sodium Potassium Chloride Carbon Dioxide BUN Creatinine Estimated GFR BUN/Creatinine Ratio Glucose Calcium Magnesium Total Bilirubin AST ALT Alkaline Phosphatase Total Protein Albumin Globulin Albumin/Globulin Ratio Procalcitonin < 0.05 06/20/18 06:04 WBC RBC Hgb Hct MCV MCH MCHC RDW Plt Count Neut % (Auto) Lymph % (Auto) [place] % (Auto) Eos % (Auto) Baso % (Auto) Neut # (Auto) Lymph # (Auto) [place] # (Auto) Eos # (Auto) Baso # (Auto) PT INR Sodium 136 L Potassium 3.7 Chloride 92 L Carbon Dioxide 37 H BUN 23 H Creatinine 1.00 Estimated GFR 53.2 L BUN/Creatinine Ratio 23.0 H Glucose 92 Calcium 8.1 L Magnesium 2.4 H Total Bilirubin 0.6 AST 26 ALT 19 Alkaline Phosphatase 97 Total Protein 6.8 Albumin 3.4 L Globulin 3.4 Albumin/Globulin Ratio 1.0 Procalcitonin Assessment & Plan Assessment & Plan narrative: Nathaly Dee is an 82-year-old female with a past medical history significant for atrial fibrillation on chronic warfarin, HFpEF, moderate MR, LUIS on CPAP, and chronic pain with opiate dependence due to spinal stenosis and osteoarthritis who presented for weakness. Found to have SHEELA secondary to Bactrim and diuretic, recent not completely treated UTI and possible CHF exacerbation. 1. Acute kidney injury, present on admission. Resolved. -Multifactorial and secondary to Bactrim in addition to patient's normal diuretic which together are nephrotoxic. -Initial creatinine 1.4 on presentation. Baseline creatinine 0.7-0.9. -Avoid hypotension, optimize renal perfusion. -Discontinued and avoid nephrotoxic agents (ie. Bactrim). Will continue diuresis gently. 2. Acute on chronic diastolic heart failure, secondary to acute kidney injury, present on admission. Active. -CXR is remarkable for cardiomegaly, small left-sided pleural effusion with probable associated scarring/atelectasis. -Last echocardiogram on 03/29/2017 demonstrated normal left ventricular EF 60-65%, RV moderately dilated with lower limit of normal function, [id number] MR with an increase in severity since 01/2017, severe tricuspid regurgitation and RVSP 33 mmHg (pulmonary HTN improved from 01/2017). -Received 40 mg IV Lasix in the ED. Diuresed 1000 ml. Restarted torsemide 40 mg daily (usual dose 40 mg twice daily). -Continue strict I&O and daily weights. -Continue compression stockings and avoid medications with predisposition towards peripheral edema. 3. Recent UTI not completely treated, present on admission. Active. -Patient had urinary retention and says symptoms started on Bactrim DS per PCP. -No urinalysis was performed due to retention. Urinalysis on admission was contaminated, therefore, repeat was performed and is clear with culture not indicated likely due to being on antibiotics. -Started empiric doxycycline 100 mg twice daily for 3 additional days ( stop after 06/22) due to multiple antibiotic allergies (including penicillin with angioedema). 4. Acute generalized weakness, present on admission. Improving. -Treat acute underlying condition which is SHEELA and possibly deconditioning. -Continue PT evaluation and treatment. 5. Chronic atrial fibrillation on warfarin, present on admission. Stable. -Currently controlled ventricular rate. -Held metoprolol and diltiazem as patients BP borderline. Restarted diltiazem 180 mg twice daily, however, held evening dose due to low normal BP. (may have to gently bolus her if BP trending down. Continue holding metoprolol. -Replete electrolytes as needed. -INR currently therapeutic at 2.1. Continue home warfarin regimen, check daily INR, and adjust if needed. 6. Hypertension, chronic, present on admission. Stable. -Held metoprolol. Restarted diltiazem as above. 7. Insomnia, chronic, present on admission. Stable. -Continue melatonin 3 mg daily at bedtime and mirtazapine 50 mg daily at bedtime. 8. Chronic back pain with opiate dependence, present on admission. Stable. -Continue fentanyl patch 25 mcg every 72 hours and oxycodone 5 mg every 6 hours as needed for moderate to severe pain. 9. GERD, chronic, present on admission. Stable. -Continue Protonix 40 mg twice daily. 10. Depression, chronic, present on admission. Stable. -Continue sertraline 50 mg daily. Disposition: Likely discharge tomorrow home possibly with home health versus intermediate facility for rehabilitation if she is agreeable. Quality VTE Deep Vein Thrombosis/Pulmonary Embolism Present on Admission: No
--- NOTE | 2018-06-20 17:49 | P.PN_ITS ---
Subjective Date Patient Seen: 06/20/18 Interval history: Nathaly Dee is an 82-year-old female with a past medical history significant for atrial fibrillation on chronic warfarin, HFpEF, moderate MR, LUIS on CPAP, and chronic pain with opiate dependence due to spinal stenosis and osteoarthritis who presented for weakness. Found to have SHEELA secondary to Bactrim and diuretic, recent not completely treated UTI and possible CHF exacerbation. The patient is resting in bed side chair comfortably. She reports she feels much better. She does endorse generalized weakness that she reports is new. Discussion with her yesterday reveals that she has been weak for some time and that he is unable to care for her at home. The patient is adamant that she does not want to go to a residential facility. She has no complaints and denies headache, chest pain, shortness of breath abdominal pain, nausea, vomiting, fever, chills, diarrhea or constipation. She is voiding via Georges catheter with good UOP. She is hesitant to remove Georges catheter but is agreeable to later this afternoon. She is up ambulating minimally due to weakness with assistance and PT/OT. Exam Vital Signs (past 8 hours): - 06/20/18 12:17 06/20/18 14:06 06/20/18 15:15 Temperature 98.7 F 98.7 F Pulse Rate 91 H 92 H Respiratory Rate 18 Blood Pressure 105/60 94/57 L Pulse Oximetry 92 93 92 Fraction of Inspired Oxygen 21 Oxygen Delivery Method Room Air Oxygen Flow Rate 0 Narrative Exam Narrative: General: Elderly female sitting in bedside chair and in no acute distress, well-developed, well-nourished, appropriately interactive. HEENT: Normocephalic, atraumatic. External ears without defect. Pupils equal, round, and reactive to light. Anicteric sclerae, moist conjunctivae, and no lid lag. Neck: Supple with full range of motion. No jugular venous distension. No lymphadenopathy or thyromegaly. Cardiovascular: Irregularly irregular with grade 2/6 holosystolic murmur. No rubs or gallops appreciated. Pulmonary: Diminished throughout but appears to be clear to auscultation bilaterally without crackles, wheezes, or rhonchi. Normal respiratory effort with no use of accessory muscles. Abdomen: Soft, bowel sounds present nontender, nondistended. No hepatosplenomegaly or masses appreciated. Extremities: No clubbing or cyanosis. Trace edema to pretibial area bilaterally with compression stockings in place. Skin: Normal temperature, turgor, and texture; no rash, ulcers, or subcutaneous nodules appreciated. Neurological: Cranial nerves grossly intact. Psychiatric: Normal mood and affect. Alert and oriented to person, place, and time. Objective Labs Result Diagrams: 06/20/18 06:04 06/20/18 06:04 Labs: Laboratory Results - last 24 hr 06/20/18 06/20/18 06/20/18 06:04 06:04 06:04 WBC 9.2 RBC 4.51 Hgb 12.6 Hct 39.8 MCV 88.3 MCH 28.0 MCHC 31.8 RDW 16.7 H Plt Count 301 Neut % (Auto) 60.2 Lymph % (Auto) 25.4 [place] % (Auto) 10.5 Eos % (Auto) 3.4 Baso % (Auto) 0.5 Neut # (Auto) 5500 Lymph # (Auto) 2300 [place] # (Auto) 1000 H Eos # (Auto) 300 Baso # (Auto) 0 PT 22.3 H INR 1.9 H Sodium Potassium Chloride Carbon Dioxide BUN Creatinine Estimated GFR BUN/Creatinine Ratio Glucose Calcium Magnesium Total Bilirubin AST ALT Alkaline Phosphatase Total Protein Albumin Globulin Albumin/Globulin Ratio Procalcitonin < 0.05 06/20/18 06:04 WBC RBC Hgb Hct MCV MCH MCHC RDW Plt Count Neut % (Auto) Lymph % (Auto) [place] % (Auto) Eos % (Auto) Baso % (Auto) Neut # (Auto) Lymph # (Auto) [place] # (Auto) Eos # (Auto) Baso # (Auto) PT INR Sodium 136 L Potassium 3.7 Chloride 92 L Carbon Dioxide 37 H BUN 23 H Creatinine 1.00 Estimated GFR 53.2 L BUN/Creatinine Ratio 23.0 H Glucose 92 Calcium 8.1 L Magnesium 2.4 H Total Bilirubin 0.6 AST 26 ALT 19 Alkaline Phosphatase 97 Total Protein 6.8 Albumin 3.4 L Globulin 3.4 Albumin/Globulin Ratio 1.0 Procalcitonin Assessment & Plan Assessment & Plan narrative: Nathaly Dee is an 82-year-old female with a past medical history significant for atrial fibrillation on chronic warfarin, HFpEF, moderate MR, LUIS on CPAP, and chronic pain with opiate dependence due to spinal stenosis and ost eoarthritis who presented for weakness. Found to have SHEELA secondary to Bactrim and diuretic, recent not completely treated UTI and possible CHF exacerbation. 1. Acute kidney injury, present on admission. Resolved. -Multifactorial and secondary to Bactrim in addition to patient's normal diuretic which together are nephrotoxic. -Initial creatinine 1.4 on presentation. Baseline creatinine 0.7-0.9. -Avoid hypotension, optimize renal perfusion. -Discontinued and avoid nephrotoxic agents (ie. Bactrim). Will continue diuresis gently. 2. Acute on chronic diastolic heart failure, secondary to acute kidney injury, present on admission. Active. -CXR is remarkable for cardiomegaly, small left-sided pleural effusion with probable associated scarring/atelectasis. -Last echocardiogram on 03/29/2017 demonstrated normal left ventricular EF 60- 65%, RV moderately dilated with lower limit of normal function, [id number] MR with an increase in severity since 01/2017, severe tricuspid regurgitation and RVSP 33 mmHg (pulmonary HTN improved from 01/2017). -Received 40 mg IV Lasix in the ED. Diuresed 1000 ml. Restarted torsemide 40 mg daily (usual dose 40 mg twice daily). -Continue strict I&O and daily weights. -Continue compression stockings and avoid medications with predisposition toward s peripheral edema. 3. Recent UTI not completely treated, present on admission. Active. -Patient had urinary retention and says symptoms started on Bactrim DS per PCP. -No urinalysis was performed due to retention. Urinalysis on admission was contaminated, therefore, repeat was performed and is clear with culture not indicated likely due to being on antibiotics. -Started empiric doxycycline 100 mg twice daily for 3 additional days ( stop after 06/22) due to multiple antibiotic allergies (including penicillin with angioedema). 4. Acute generalized weakness, present on admission. Improving. -Treat acute underlying condition which is SHEELA and possibly deconditioning. -Continue PT evaluation and treatment. 5. Chronic atrial fibrillation on warfarin, present on admission. Stable. -Currently controlled ventricular rate. -Held metoprolol and diltiazem as patients BP borderline. Restarted diltiazem 180 mg twice daily, however, held evening dose due to low normal BP. (may have to gently bolus her if BP trending down. Continue holding metoprolol. -Replete electrolytes as needed. -INR currently therapeutic at 2.1. Continue home warfarin regimen, check daily INR, and adjust if needed. 6. Hypertension, chronic, present on admission. Stable. -Held metoprolol. Restarted diltiazem as above. 7. Insomnia, chronic, present on admission. Stable. -Continue melatonin 3 mg daily at bedtime and mirtazapine 50 mg daily at bedtime. 8. Chronic back pain with opiate dependence, present on admission. Stable. -Continue fentanyl patch 25 mcg every 72 hours and oxycodone 5 mg every 6 hours as needed for moderate to severe pain. 9. GERD, chronic, present on admission. Stable. -Continue Protonix 40 mg twice daily. 10. Depression, chronic, present on admission. Stable. -Continue sertraline 50 mg daily. Disposition: Likely discharge tomorrow home possibly with home health versus residential facility for rehabilitation if she is agreeable. Quality VTE Deep Vein Thrombosis/Pulmonary Embolism Present on Admission: No
[2018-06-20] MEDS: MIRTAZAPINE 15 MG TABLET PO (20:05)
[2018-06-20] MEDS: TIMOLOL 0.5% OPHTH 1 DROPS EYE-BOTH (20:23)
[2018-06-20] MEDS: MELATONIN 3 MG TABLET PO (22:08)
[2018-06-21] VITALS (7 sets, daily range): BP systolic 90–113; BP diastolic 52–71; PULSE 87–97; RESP 18–20; TEMP 36.4–36.8; O2SAT 93–98
[2018-06-21] MEDS: OXYCODONE IR 5 MG TABLET PO ×2 (04:57→11:42)
--- NOTE | 2018-06-21 06:47 | PC.NURSE ---
0530 Reported to GADIEL Barron BS noted 675 cc & pt. got up to the BSC. Voided 250 cc & BS for PVR & noted 409 cc in the bladder. No new order, but to monitor, will report to day RN.
[2018-06-21] MEDS: dilTIAZem CD 180 MG CAP PO (09:38)
[2018-06-21] MEDS: DOXYCYCLINE HYCLATE 100 MG TABLET PO (09:38)
[2018-06-21] MEDS: TIMOLOL 0.5% OPHTH 1 DROPS EYE-BOTH (09:39)
[2018-06-21] MEDS: PANTOPRAZOLE 40 MG TABLET PO (09:39)
[2018-06-21] MEDS: SERTRALINE 50 MG TABLET PO (09:39)
--- NOTE | 2018-06-21 10:32 | CM.DPC ---
DCP: continued: Lissette/NORM was here to see pt this morning as planned. Dr. Daily plans for a d/c today and will have orders completed by noon. Checked in with pt, she remains very agreeable to the plan. She says her has now left on his trip and I told my daughter Nicki I expected to d/c today. Benji is alerted, will set up van transport for afternoon and call back with the time. PASRR: completed and faxed with copy to snf packet. Will await orders and follow accordingly. JOELLE Padilla is updated.
--- NOTE | 2018-06-21 10:39 | PM.DS.1 ---
History of Present Illness Date Patient Seen: 06/21/18 Time Patient Seen: 10:39 Chief complaint: General weakness, UTI, legs swelling Narrative: The patient is an 82-year-old female with PMH of AFIB (AC w/ coumadin), HFpEF, moderate MR, LUIS (on CPAP), chronic pain (h/o spinal stenosis and osteoarthritis), and opioid dependence. The patient was sent to the ED out of concern for weakness. Associated symptoms include lower extremity edema, dyspnea w/ exertion, decreased urine output and fatigue. Given degree of weakness, she had difficulty ambulating. Patient is known to have frequent hospitalizations for hypervolemia. Also, she was recently treated for a UTI with Bactrim, x3 doses. Denies fever and chills. No chest pain, palpitations, dizziness / lightheadedness, and syncopal events. Denies symptoms of blood loss. Not sure if she has been adherent with diuretic doses. No other exacerbating or remitting factors noted. Discharge Providers Date of admission: 06/18/18 14:20 Discharge Date: 06/21/18 Primary care physician: Arturo Mcdonald MD Consults: 06/18/18 13:37 Consult to Occupational Therapy Evaluate & Treat Comment: Physician Instructions: Evaluate and treat Consult to Physical Therapy Evaluate & Treat Comment: Physician Instructions: Evaluate and Treat Discharge provider: Romain Leyva MD Summary Discharge Diagnosis: 1. Acute kidney injury, present on admission. Resolved. 2. Acute on chronic diastolic heart failure, secondary to acute kidney injury, present on admission. 3. Recent UTI not completely treated, present on admission 4. Acute generalized weakness, present on admission. . 5. Chronic atrial fibrillation on warfarin 6. Hypertension 7. Insomnia 8. Chronic back pain with opiate dependence 9. GERD 10. Depression Hospital Course: 1. Acute kidney injury, present on admission. Resolved. -Multifactorial and possibly related to Bactrim in addition to patient's normal diuretic which together are nephrotoxic. -Initial creatinine 1.4 on presentation. Baseline creatinine 0.7-0.9. Creatinine today of 1.0. 2. Acute on chronic diastolic heart failure, secondary to acute kidney injury, present on admission. Active. -CXR is remarkable for cardiomegaly, small left-sided pleural effusion with probable associated scarring/atelectasis. -Last echocardiogram on 03/29/2017 demonstrated normal left ventricular EF 60-65%, RV moderately dilated with lower limit of normal function, [id number] MR with an increase in severity since 01/2017, severe tricuspid regurgitation and RVSP 33 mmHg (pulmonary HTN improved from 01/2017). -Received 40 mg IV Lasix in the ED. Diuresed 1000 ml. Resume 40 mg twice daily. -Continue compression stockings and avoid medications with predisposition towards peripheral edema. 3. Recent UTI not completely treated, present on admission. Active. -Patient had urinary retention and says symptoms started on Bactrim DS. - Urinalysis on admission was contaminated, therefore, repeat was performed and is clear with culture not indicated likely due to being on antibiotics. -no antibiotics indicated. 4. Acute generalized weakness, present on admission. Improving. -Treat acute underlying condition which is SHEELA and possibly deconditioning. -Continue PT evaluation and treatment at [facility].. 5. Chronic atrial fibrillation on warfarin, present on admission. Stable. -Currently controlled ventricular rate. -Resume metoprolol and diltiazem -INR currently therapeutic at 1.9. Continue home warfarin regimen and follow INR weekly. 6. Hypertension, chronic, present on admission. Stable. -Continue Metoprolol and diltiazem 7. Insomnia, chronic, present on admission. Stable. -Continue melatonin 3 mg daily at bedtime and mirtazapine 50 mg daily at bedtime. 8. Chronic back pain with opiate dependence, present on admission. Stable. -Continue fentanyl patch 25 mcg every 72 hours and oxycodone 5 mg every 6 hours as needed for moderate to severe pain. 9. GERD, chronic, present on admission. Stable. -Continue Protonix 40 mg twice daily. 10. Depression, chronic, present on admission. Stable. -Continue sertraline 50 mg daily. She hopes to go home from the [facility] facility soon once her strength returns and her is able to physically cope with her needs. Total time today of 45 minutes. Exam Vital Signs (past 8 hours): - 06/21/18 04:00 06/21/18 05:00 06/21/18 08:00 Temperature 97.7 F 97.5 F L Pulse Rate 87 94 H Respiratory Rate 20 18 Blood Pressure 111/71 113/63 Pulse Oximetry 97 93 95 06/21/18 09:30 Temperature Pulse Rate Respiratory Rate Blood Pressure Pulse Oximetry 93 Fraction of Inspired Oxygen 21 Oxygen Delivery Method Room Air Oxygen Flow Rate 0 Narrative Exam Narrative: She is alert and oriented x3. No apparent distress. She tells me that that she has decided to ?keep making people happy, but not myself? she will be going to [facility] today. There is trace bilateral ankle edema. There are bibasilar crackles. Heart is irregular without murmur. Objective Labs Result Diagrams: 06/20/18 06:04 06/20/18 06:04 Discharge Plan Discharge Plan Patient Disposition: SNF Transfer to: [facility] Under care of provider: Dr. Ellis Espinoza Labs: BMP and CBC in 4 days. PT/INR in one week. I certify the postop hospital [facility] care is medically necessary on a continuing basis for any conditions for which he/ she received care during this hospitalization.: Yes The receiving facility has agreed to accept transfer and provide medical treatment.: Yes Discharge Med Rec/Prescriptions Prescriptions: New fentanyl 25 mcg/hr Patch 72 Hour 25 mcg topical Q72H Qty: 10 RF: 0 oxycodone 5 mg Tablet 5 mg PO Q6H PRN (Reason: pain) Qty: 30 RF: 0 Continued oxycodone 5 MG tablet 5 mg PO Q6H PRN (Reason: pain) Qty: 0 RF: 0 ondansetron HCl 4 MG tablet 4 mg PO TID PRN (Reason: Nausea) Qty: 0 RF: 0 sennosides [senna] 8.6 MG tablet 2 tab PO TID Qty: 0 RF: 0 fentanyl 25 MCG/HR patch 72 hour 1 patch Topical Q72H Qty: 0 RF: 0 latanoprost 0.005 % drops 1 drp OPHTH BEDTIME Qty: 0 RF: 0 torsemide 20 mg tablet 40 mg PO BID RF: 0 diltiazem HCl 180 mg capsule,extended release 24hr 180 mg PO BID RF: 0 acetaminophen 500 mg Tablet 1,000 mg PO Q6H MDD 5 tablets PRN (Reason: pain) RF: 0 warfarin 5 mg tablet 2.5 mg PO SUMOWETHSA RF: 0 timolol maleate 0.5 % drops 1 drp EYE-BOTH BID RF: 0 metoprolol succinate 100 MG tablet extended release 24 hr 100 mg PO QPM RF: 0 pantoprazole 40 MG tablet,delayed release (DR/EC) 40 mg PO BID RF: 0 polyethylene glycol 3350 [Miralax] 119 GM powder 2 tsp PO DAILY RF: 0 melatonin 3 mg Tablet 3 mg PO BEDTIME RF: 0 mirtazapine 15 mg tablet 15 mg PO BEDTIME RF: 0 cyanocobalamin (vitamin B-12) [Vitamin B-12] 1,000 mcg Tablet 1,000 mcg PO DAILY RF: 0 sertraline 50 mg tablet 50 mg PO DAILY RF: 0 cholecalciferol (vitamin D3) [Vitamin D3] 2,000 unit Tablet 2,000 unit PO DAILY RF: 0 docusate calcium 240 mg Capsule 240 mg PO DAILY RF: 0 loratadine [Claritin] 10 mg Tablet 10 mg PO DAILY RF: 0 warfarin 5 mg tablet 5 mg PO TUFR RF: 0 Discontinued clobetasol 0.05 % ointment 1 applictn Topical .COMPLEX Qty: 30 RF: 0 sulfamethoxazole-trimethoprim 800-160 mg tablet 1 tab PO BID RF: 0 Follow up/Referrals: Arturo Mcdonald MD [Primary Care Provider] - Discharge Health Status Precautions: [place] Provider Discharge Instructions Diet: Diet as Tolerated and Regular Liquid consistency: Normal/Thin Food texture: Regular [facility] Rehab type: Physical therapy and Occupational therapy Visit Report/Discharge Packet Instructions: DI for Heart Failure Discharge Data Primary Care Provider: Arturo Mcdonald V Attending Provider: Adelita Thompson Admit Date/Time: 06/18/18 14:20 Quality VTE Deep Vein Thrombosis/Pulmonary Embolism Present on Admission: No
--- NOTE | 2018-06-21 10:56 | PT.IPTN ---
Current Diagnoses Acute kidney failure, unspecified (06/18/18) Physical Therapy Treatment Note M2 PT-IP Current Condition Start: 06/18/18 17:00 Freq: NEEDED Status: Active Protocol: Document 06/18/18 15:30 AB (Rec: 06/18/18 17:10 AB [id number]) Physical Therapy Current Condition Current Condition Evaluation Date 06/18/18 Treatment Diagnosis UTI; generalized weakness; difficulty in walking Onset Date 06/18/18 Precautions Other Precautions falls M3 PT-IP Subjective Start: 06/18/18 17:00 Freq: NEEDED Status: Active Protocol: Document 06/21/18 10:15 GGD (Rec: 06/21/18 10:56 GGD [id number]) Subjective Physical Therapy Visit Type Type Patient Refusal Notes Pt refused states that she is D/C today and will do PT at [facility]. Discharge
[2018-06-21] MEDS: ACETAMINOPHEN 325 MG TABLET 650 MG PO (11:43)
--- NOTE | 2018-06-21 14:49 | PC.NURSE ---
Day shift: Pt left unit at approx 1500 to [facility] via van transport in . Transport person has chart/folder. Pt has all personal belongings. Report called to woman named Jewell.
== END 2018-06-21 14:55 | DRG 698 ==
LOC: ED 13:13 → ICU 14:21 → AC 06-19 12:17
PROVIDERS: Nurse Practitioner Gerontology; Admitting Provider Internal Medicine; Emergency Provider Emergency Medicine; PCP Internal Medicine; Visit Provider Internal Medicine
DX: N14.1 Nephropathy induced by other drugs, medicaments and biological substances (principal); I50.33 Acute on chronic diastolic (congestive) heart failure; N39.0 Urinary tract infection, site not specified; I11.0 Hypertensive heart disease with heart failure; E86.9 Volume depletion, unspecified; I48.2 Chronic atrial fibrillation; T36.8X5A Adverse effect of other systemic antibiotics, initial encounter; Z79.01 Long term (current) use of anticoagulants; G47.33 Obstructive sleep apnea (adult) (pediatric); G89.29 Other chronic pain; G47.00 Insomnia, unspecified; F32.9 Major depressive disorder, single episode, unspecified; K21.9 Gastro-esophageal reflux disease without esophagitis
CPT/HCPCS: 36415; 36591; 51798; 71045; 80053; 80069; 81001; 83690; 83735; 83880; 84145; 84484; 85025; 85610; 85730; 87797; 93005; 93306; 94760; 94762; 96374; 97116; 97162; 97165; 97530; 97535; 99285; J0696; J1940; Q9957